=== PATIENT | female | born 1955 | race Caucasian/White ===

== ENCOUNTER → 2016-12-18 | Outpatient (CLI) | payer OTHER ==
--- NOTE | 2016-12-18 13:01 | MM ---
Reason for exam: screening (asymptomatic). Last mammogram was performed 3 years ago. History: Patient is postmenopausal. Took hormonal contraceptives for 4 years beginning at age 22. Physical Findings: A clinical breast exam by your physician is recommended on an annual basis and results should be correlated with mammographic findings. MG Screening Mammo w CAD Bilateral CC and MLO view(s) were taken. Prior study comparison: December 14, 2013, bilateral digital screening mammo w/CAD. There are scattered fibroglandular densities. There is no discrete abnormality. ASSESSMENT: Negative, BI-RAD 1 RECOMMENDATION: Routine screening mammogram of both breasts in 1 year.
== END ==
LOC: RADMAMWWP 06:59
PROVIDERS: ATTEND Obstetrics & Gynecology
DX: Z12.31 Encounter for screening mammogram for malignant neoplasm of breast (principal)

== ENCOUNTER → 2018-01-27 | Outpatient (CLI) | payer OTHER ==
--- NOTE | 2018-01-28 07:54 | MM ---
Reason for exam: screening (asymptomatic). Last mammogram was performed 1 year and 1 month ago. History: Patient is postmenopausal. Took hormonal contraceptives for 4 years beginning at age 22. Physical Findings: A clinical breast exam by your physician is recommended on an annual basis and results should be correlated with mammographic findings. MG Screening Mammo w CAD Bilateral CC and MLO view(s) were taken. Prior study comparison: December 18, 2016, bilateral MG screening mammo w CAD. December 14, 2013, bilateral digital screening mammo w/CAD. The breast tissue is heterogeneously dense. This may lower the sensitivity of mammography. There is chronic nodularity in the right breast. No significant changes when compared with prior studies. ASSESSMENT: Benign, BI-RAD 2 RECOMMENDATION: Routine screening mammogram of both breasts in 1 year.
== END | disposition home or self-care (01) ==
LOC: RADMAMWWP 07:15
PROVIDERS: ATTEND Obstetrics & Gynecology
DX: Z12.31 Encounter for screening mammogram for malignant neoplasm of breast (principal)
CPT/HCPCS: 77067

== ENCOUNTER → 2018-01-29 | Outpatient (CLI) | payer OTHER ==
--- NOTE | 2018-01-29 11:19 | BD ---
EXAMINATION TYPE: Axial Bone Density DATE OF EXAM: 01/29/2018 COMPARISON: 2007 CLINICAL HISTORY: Osteoporosis screening Height: 5'4 1/2 Weight: 164 FRAX RISK QUESTIONS: Secondary Osteoporosis: RISK FACTORS HISTORY OF: Postmenopausal woman: MEDICATIONS: Additional Medications: Additional History: EXAM MEASUREMENTS: Bone mineral densitometry was performed using the [employer] System. Bone mineral density as measured about the Lumbar spine is: ----- L1-L4(G/cm2): 1.011 T Score Values are as follows: ----- L2: -1.5 ----- L3: -1.2 ----- L4: -1.7 ----- L1-L4: -1.4 Bone mineral density has: Decreased -5.0% since study of: 04/01/2008 Bone mineral density about the R hip (g/cm2): 0.874 Bone mineral density about the L hip (g/cm2): 0.892 T Score values are as follows: -----R Neck: -1.2 -----L Neck: -1.0 -----R Total: -0.2 -----L Total: -0.3 Bone mineral density has: Decreased -4.3% since study of: 04/01/2008 IMPRESSION: Osteopenia (T Score between -2.5 and -1). There is slightly increased risk of fracture and the patient may be considered for treatment. Re-Screen 2-5 years. NOTE: T-SCORE=SD OF THE YOUNG ADULT MEAN.
== END | disposition home or self-care (01) ==
LOC: RADBDWWP 07:12
PROVIDERS: ATTEND Obstetrics & Gynecology
DX: M85.80 Other specified disorders of bone density and structure, unspecified site (principal)
CPT/HCPCS: 77080

== ENCOUNTER → 2019-11-03 | Outpatient (CLI) | payer MEDICAID ==
--- NOTE | 2019-11-04 07:59 | MM ---
Reason for exam: screening (asymptomatic). Last mammogram was performed 1 year and 9 months ago. History: Patient is postmenopausal and history of other cancer. Took hormonal contraceptives for 4 years beginning at age 22. Physical Findings: A clinical breast exam by your physician is recommended on an annual basis and results should be correlated with mammographic findings. MG Screening Mammo w CAD Bilateral CC and MLO view(s) were taken. Prior study comparison: January 27, 2018, bilateral MG screening mammo w CAD. December 18, 2016, bilateral MG screening mammo w CAD. The breast tissue is heterogeneously dense. This may lower the sensitivity of mammography. No suspicious abnormality. No significant changes when compared with prior studies. ASSESSMENT: Negative, BI-RAD 1 RECOMMENDATION: Routine screening mammogram of both breasts in 1 year.
== END | disposition home or self-care (01) ==
LOC: RADMAMWWP 10:33
PROVIDERS: ATTEND Obstetrics & Gynecology
DX: Z12.31 Encounter for screening mammogram for malignant neoplasm of breast (principal)
CPT/HCPCS: 77067

== ENCOUNTER → 2020-05-12 | Outpatient (CLI) | payer MEDICAID ==
--- NOTE | 2020-05-12 16:19 | XR ---
EXAMINATION TYPE: XR lumbar spine 2 or 3V DATE OF EXAM: 05/12/2020 CLINICAL HISTORY: pain TECHNIQUE: Three views of the lumbar spine are submitted. COMPARISON: None. FINDINGS: There are 5 lumbar type vertebral bodies identified. The lumbar spine shows satisfactory alignment w ithout evidence of acute fracture or dislocation. Vertebral body heights are within normal limits. Mild multilevel degenerative disc space narrowing. The overlying soft tissue appears unremarkable. IMPRESSION: No acute fracture or dislocation is seen in the lumbar spine. ICD 10 NO FRACTURE, INITIAL EVALUATION
== END | disposition home or self-care (01) ==
LOC: RAD 15:41
PROVIDERS: ATTEND Family Medicine
DX: M54.17 Radiculopathy, lumbosacral region (principal)
CPT/HCPCS: 72100

== ENCOUNTER → 2020-06-16 | Outpatient (CLI) | payer MEDICAID ==
--- NOTE | 2020-06-16 10:00 | MR ---
EXAMINATION TYPE: MR lumbar spine wo con DATE OF EXAM: 06/16/2020 COMPARISON: X-ray 05/12/2020 HISTORY: Lumbar radiculopathy TECHNIQUE: T1 and T2 axial and sagittal images of the lumbar spine are submitted. FINDINGS: There is no abnormal signal seen within the visualized spinal cord or paraspinal soft tissu es. There is multilevel disc desiccation. At L1-2 there is no disc herniation or canal stenosis. No foraminal encroachment. At L2-3 there is no disc herniation or canal stenosis. Mild circumferential disc bulging slightly gre ater laterally the right. Mild right-sided foraminal encroachment but no nerve root contact. At L3-4 there is degenerative disc disease with diffuse disc bulging circumferentially. There is mild effacement of thecal sac. Hypertrophic change of the facets and ligamentum flavum are noted. There i s mild bilateral foraminal encroachment without nerve root contact or canal stenosis. At L4-5 there is degenerative disc disease with broad-based central disc bulging mild effacement of t hecal sac. Hypertrophic change of the facets and ligamentum flavum. Borderline to mild central stenos is with mild bilateral foraminal encroachment. At L5-S1 there is no disc herniation or canal stenosis. No foraminal encroachment. There are 2 cysts in the left hemipelvis the largest measuring 1.6 cm. Pelvic ultrasound recommended. IMPRESSION: 1. Multilevel mild degenerative disc disease with disc bulging at levels L2-3, L3-4 and most pronounc ed at L4-5 with mild effacement of thecal sac, borderline canal stenosis and mild bilateral foraminal encroachment. 2. Disc bulging L2-L3 is greater laterally right with resulting in mild foraminal encroachment. A sma ll focal disc protrusion far laterally to the right not excluded correlate for radiculopathy at this level. Postcontrast imaging could be obtained if clinically warranted. 3. Ultrasound pelvis is recommended for pelvic cysts.
== END | disposition home or self-care (01) ==
LOC: RADMRIMAIN 08:52
PROVIDERS: ATTEND Family Medicine
DX: M48.061 Spinal stenosis, lumbar region without neurogenic claudication (principal); M51.16 Intervertebral disc disorders with radiculopathy, lumbar region
CPT/HCPCS: 72148

== ENCOUNTER 2021-06-26 18:14 | Inpatient (IN) | payer MEDICAID ==
[2021-06-26] MEDS: DEXAMETHASONE SOD PHOSPHATE 10 MG/ML 1 ML VIAL IVP SCH ×2 (19:16→21:32)
[2021-06-26] MEDS: ACETAMINOPHEN TAB 325 MG TAB PO PRN (19:16)
[2021-06-26 19:19] LABS: Basophils # (A) 0.1 k/uL (0-0.2); Basophils % (A) 1 %; Eosinophils % (A) 0 %; HGB 13.7 gm/dL (11.4-16.0); Lymphocytes # (A) 0.8 k/uL (1.0-4.8); Lymphocytes % (A) 9 %; MCH 30.3 pg (25.0-35.0); MCHC 35.1 g/dL (31.0-37.0); MCV 86.3 fL (80.0-100.0); Mean Platelet Volume 9.2; Monocytes # (A) 0.2 k/uL (0-1.0); Monocytes % (A) 2 %; Neutrophils # (A) 7.6 k/uL (1.3-7.7); Neutrophils % (A) 85 %; Platelet Count 291 k/uL (150-450); RBC 4.52 m/uL (3.80-5.40); RDW 13.3 % (11.5-15.5); WBC 8.9 k/uL (3.8-10.6)
[2021-06-26] MEDS: ALBUTEROL HFA INHALER INHALATION PRN (19:27)
[2021-06-26] MEDS ORDERED: SODIUM CHLORIDE 0.9% 500 ML 500 ML IV STA (19:33)
[2021-06-26 19:34] LABS: Albumin 3.5 g/dL (3.5-5.0); Calcium 8.1 mg/dL (8.4-10.2); Magnesium 2.4 mg/dL (1.6-2.3); Potassium 3.1 mmol/L (3.5-5.1); Total Bilirubin 0.9 mg/dL (0.2-1.3); Total Protein 6.5 g/dL (6.3-8.2)
[2021-06-26 19:37] LABS: INR 0.9 (<1.2); Partial Thromboplastin Time 26.1 sec (22.0-30.0); Prothrombin Time 9.8 sec (9.0-12.0)
--- NOTE | 2021-06-26 19:40 | XR ---
EXAMINATION TYPE: XR chest 1V portable DATE OF EXAM: 06/26/2021 COMPARISON: 08/16/2010 HISTORY: Short of breath. Cough TECHNIQUE: FINDINGS: There is patchy bilateral pulmonary interstitial and airspace infiltrates. Heart size is no rmal. There is no pleural effusion. IMPRESSION: Bilateral extensive pneumonia which is new compared to old exam.
[2021-06-26] MEDS ORDERED: POTASSIUM CHLORIDE ER 20 MEQ TAB.ER PO STA (21:04)
[2021-06-26] MEDS ORDERED: NALOXONE 0.4 MG/ML 1 ML VIAL IV PRN (21:16)
[2021-06-26] MEDS ORDERED: REMDESIVIR 200 MG in SODIUM CHLORIDE 0.9% 250 ML IVPB ONE (21:30)
--- NOTE | 2021-06-26 21:54 | ED ---
General Adult HPI - General Chief complaint: Shortness of Breath Stated complaint: Covid+ Time Seen by Provider: 06/26/21 18:43 Source: patient, RN notes reviewed, old records reviewed Mode of arrival: ambulatory Limitations: no limitations - History of Present Illness Initial comments: Patient is a 65-year-old female with past medical history that is unremarkable presents emergency Department with chief complaint of COVID-19 infection and worsening symptoms. Patient states that she began having symptoms on 06/20/2021 and tested positive for Covid on 06/21/2021. She states that over the last few days she is not a worsening shortness of breath which is why she presents emergency department for evaluation. She nurses a cough with no production. Denies any abdominal pain, nausea, vomiting. Endorses joint pain, fatigue. Endorses fevers. Denies any urinary complaints or diarrhea. She has no other acute complaints at this time. She was not vaccinated for COVID-19. I evaluated the patient when she was placed in a room. Patient was saturating 64% on room air in the waiting room. - Related Data Home Medications Medication Instructions Recorded Confirmed No Known Home Medications 06/26/21 06/26/21 Allergies Allergy/AdvReac Type Severity Reaction Status Date / Time No Known Allergies Allergy Verified 06/26/21 19:34 Review of Systems ROS Statement: Those systems with pertinent positive or pertinent negative responses have been documented in the HPI. Review of Systems: CONST: Endorses fever, fatigue EYES: Denies blurry vision ENT: Denies nasal congestion C/V: Denies Chest pain RESP: Endorses shortness of breath GI: Denies abdominal pain : Denies dysuria SKIN: Denies rash. MSK: Denies joint pain. NEURO: Denies headache ROS Other: All systems not noted in ROS Statement are negative. Past Medical History History of Any Multi-Drug Resistant Organisms: None Reported Past Surgical History: Hysterectomy Smoking Status: Never smoker Past Alcohol Use History: None Reported Past Drug Use History: None Reported General Exam - General Exam Comments Initial Comments: General: Patient tachypneic, dyspneic appears in mild respiratory distress on 6 L nasal cannula. She is febrile. HEAD: Normal with no signs of head trauma. EYES: PERRLA, EOMI, conjunctiva normal, no discharge. ENT: Hearing grossly intact, normal oropharynx. RESPIRATORY: Coarse breath sounds bilaterally with increased work of breathing. Patient is hypoxic on room air, and is saturating in low 90%'s on 6 L nasal cannula. C/V: Regular rate and rhythm. S1 and S2 auscultated, no edema, peripheral pulses 2+ and intact throughout ABD: Abd is soft, nontender, nondistended EXT: Normal range of motion, no obvious deformity SKIN: No rashes or lesions observed on exposed skin. NEURO: Alert and oriented x 4. Cranial nerves II-XII intact. No focal sensory or strength deficits. Limitations: no limitations Course Vital Signs 06/26/21 06/26/21 06/26/21 18:29 18:44 19:00 Temperature 101.4 F H Pulse Rate 89 83 Respiratory 24 22 Rate Blood Pressure 120/80 147/74 O2 Sat by Pulse 76 L 64 L 94 L Oximetry 06/26/21 06/26/21 06/26/21 20:00 20:39 21:00 Temperature 99.8 F H Pulse Rate 83 79 Respiratory 27 H 26 H Rate Blood Pressure 147/74 116/71 O2 Sat by Pulse 85 L 93 L 92 L Oximetry Medical Decision Making - Medical Decision Making Based on the patient's presentation and physical exam, she is a confirmed Covid positive and is suffering worsening symptoms from a COVID-19 pneumonia. She is hypoxic on room [place] is suffering acute hypoxic respiratory failure requiring supplemental oxygenation. She seems to be saturating adequately with 6 L nasal cannula at this time. I discussed with her she will require admission to the hospital. We will obtain COVID-19 laboratory studies. Patient was in agreement this plan. EKG and chest x-ray will also be obtained. She'll be a dministered Tylenol for antipyretic therapy as well as a single 500 mL fluid bolus due to acute mild dehydration. She'll also be administered albuterol inhaler as well as started on Decadron 6 mg IV twice a day. She'll be connected to continuous cardiac she is in the department. Patient's EKG shows no signs of acute ischemia. Patient's chest x-ray revealed bilateral extensive pneumonia likely secondary to her COVID-19 pneumonia. Laboratory studies are remarkable for signs of dehydration including hyponatremia of 133, an AK I with a creatinine of 1.43 and V1 at 30 and mild lactic acidosis of 2.2. D-dimer is mildly elevated to 1.35, which is likely secondary as an inflammatory markers secondary to her COVID-19 infection. She is not tachycardiac. However due to her extreme degree of hypoxia, we will start the patient on weight-based Lovenox treatment is 72 mg every 12 hours. A VQ scan was ordered for tomorrow. Her kidney function is poor with a low GFR and therefore we will avoid contrast studies at this time. Patient is elevated inflammatory markers including an elevated LVH as well as CRP. Troponin is indeterminate at 0.017. Repeat Covid swab is positive. She is mildly hypocalcemic at 8.1. On reevaluation, her oxygenation is somewhat declined on 6 L nasal cannula and she was moved to a nonrebreather momentarily will be arranged for high flow nasal cannula for the patient. She is saturating improved on high flow nasal cannula back into the 90%'s. I informed her the results of laboratory studies and imaging. She'll be admitted to the hospital. I did call pharmacy to initiate the first dose of remdesivir, as the patient does meet criteria. She was in agreement this plan. I spoke with the admitting physician, Dr. Miller was in agreement with the plan and accepted the patient. I consulted infectious disease Dr. Monroy and pulmonology Dr. Maldonado to evaluate the patient the morning. Patient was therefore admitted to a telemetry bed in serious condition. - Lab Data Result diagrams: 06/26/21 19:06 06/26/21 19:06 Lab Results 06/26/21 06/26/21 06/26/21 Range/Units 19:06 19:06 19:06 WBC 8.9 (3.8-10.6) k/uL RBC 4.52 (3.80-5.40) m/uL Hgb 13.7 (11.4-16.0) gm/dL Hct 39.0 (34.0-46.0) % MCV 86.3 (80.0-100.0) fL MCH 30.3 (25.0-35.0) pg MCHC 35.1 (31.0-37.0) g/dL RDW 13.3 (11.5-15.5) % Plt Count 291 (150-450) k/uL MPV 9.2 Neutrophils % 85 % Lymphocytes % 9 % Monocytes % 2 % Eosinophils % 0 % Basophils % 1 % Neutrophils # 7.6 (1.3-7.7) k/uL Lymphocytes # 0.8 L (1.0-4.8) k/uL Monocytes # 0.2 (0-1.0) k/uL Eosinophils # 0.0 (0-0.7) k/uL Basophils # 0.1 (0-0.2) k/uL PT 9.8 (9.0-12.0) sec INR 0.9 (<1.2) APTT 26.1 (22.0-30.0) sec D-Dimer (<0.60) mg/L FEU Sodium 133 L (137-145) mmol/L Potassium 3.1 L (3.5-5.1) mmol/L Chloride 98 (98-107) mmol/L Carbon Dioxide 24 (22-30) mmol/L Anion Gap 11 mmol/L BUN 30 H (7-17) mg/dL Creatinine 1.43 H (0.52-1.04) mg/dL Est GFR (CKD-EPI)AfAm 45 (>60 ml/min/1.73 sqM) Est GFR (CKD-EPI)NonAf 39 (>60 ml/min/1.73 sqM) Glucose 138 H (74-99) mg/dL Lactic Ac Sepsis Rflx Plasma Lactic Acid Wayne (0.7-2.0) mmol/L Calcium 8.1 L (8.4-10.2) mg/dL Magnesium 2.4 H (1.6-2.3) mg/dL Total Bilirubin 0.9 (0.2-1.3) mg/dL AST 133 H (14-36) U/L ALT 65 H (4-34) U/L Alkaline Phosphatase 461 H (38-126) U/L Lactate Dehydrogenase 2311 H (313-618) U/L Troponin I (0.000-0.034) ng/mL C-Reactive Protein 34.0 H (<1.0) mg/dL Total Protein 6.5 (6.3-8.2) g/dL Albumin 3.5 (3.5-5.0) g/dL Coronavirus (PCR) (Not Detectd) 06/26/21 06/26/21 06/26/21 Range/Units 19:06 19:06 19:06 WBC (3.8-10.6) k/uL RBC (3.80-5.40) m/uL Hgb (11.4-16.0) gm/dL Hct (34.0-46.0) % MCV (80.0-100.0) fL MCH (25.0-35.0) pg MCHC (31.0-37.0) g/dL RDW (11.5-15.5) % Plt Count (150-450) k/uL MPV Neutrophils % % Lymphocytes % % Monocytes % % Eosinophils % % Basophils % % Neutrophils # (1.3-7.7) k/uL Lymphocytes # (1.0-4.8) k/uL Monocytes # (0-1.0) k/uL Eosinophils # (0-0.7) k/uL Basophils # (0-0.2) k/uL PT (9.0-12.0) sec INR (<1.2) APTT (22.0-30.0) sec D-Dimer (<0.60) mg/L FEU Sodium (137-145) mmol/L Potassium (3.5-5.1) mmol/L Chloride (98-107) mmol/L Carbon Dioxide (22-30) mmol/L Anion Gap mmol/L BUN (7-17) mg/dL Creatinine (0.52-1.04) mg/dL Est GFR (CKD-EPI)AfAm (>60 ml/min/1.73 sqM) Est GFR (CKD-EPI)NonAf (>60 ml/min/1.73 sqM) Glucose (74-99) mg/dL Lactic Ac Sepsis Rflx Plasma Lactic Acid Wayne 2.2 H* (0.7-2.0) mmol/L Calcium (8.4-10.2) mg/dL Magnesium (1.6-2.3) mg/dL Total Bilirubin (0.2-1.3) mg/dL AST (14-36) U/L ALT (4-34) U/L Alkaline Phosphatase (38-126) U/L Lactate Dehydrogenase (313-618) U/L Troponin I 0.017 (0.000-0.034) ng/mL C-Reactive Protein (<1.0) mg/dL Total Protein (6.3-8.2) g/dL Albumin (3.5-5.0) g/dL Coronavirus (PCR) Detected A (Not Detectd) 06/26/21 06/26/21 Range/Units 19:06 19:31 WBC (3.8-10.6) k/uL RBC (3.80-5.40) m/uL Hgb (11.4-16.0) gm/dL Hct (34.0-46.0) % MCV (80.0-100.0) fL MCH (25.0-35.0) pg MCHC (31.0-37.0) g/dL RDW (11.5-15.5) % Plt Count (150-450) k/uL MPV Neutrophils % % Lymphocytes % % Monocytes % % Eosinophils % % Basophils % % Neutrophils # (1.3-7.7) k/uL Lymphocytes # (1.0-4.8) k/uL Monocytes # (0-1.0) k/uL Eosinophils # (0-0.7) k/uL Basophils # (0-0.2) k/uL PT (9.0-12.0) sec INR (<1.2) APTT (22.0-30.0) sec D-Dimer 1.35 H (<0.60) mg/L FEU Sodium (137-145) mmol/L Potassium (3.5-5.1) mmol/L Chloride (98-107) mmol/L Carbon Dioxide (22-30) mmol/L Anion Gap mmol/L BUN (7-17) mg/dL Creatinine (0.52-1.04) mg/dL Est GFR (CKD-EPI)AfAm (>60 ml/min/1.73 sqM) Est GFR (CKD-EPI)NonAf (>60 ml/min/1.73 sqM) Glucose (74-99) mg/dL Lactic Ac Sepsis Rflx Y Plasma Lactic Acid Wayne (0.7-2.0) mmol/L Calcium (8.4-10.2) mg/dL Magnesium (1.6-2.3) mg/dL Total Bilirubin (0.2-1.3) mg/dL AST (14-36) U/L ALT (4-34) U/L Alkaline Phosphatase (38-126) U/L Lactate Dehydrogenase (313-618) U/L Troponin I (0.000-0.034) ng/mL C-Reactive Protein (<1.0) mg/dL Total Protein (6.3-8.2) g/dL Albumin (3.5-5.0) g/dL Coronavirus (PCR) (Not Detectd) - EKG Data -: EKG Interpreted by Me EKG Comments: 12-lead Electrocardiogram Interpretation Note EKG was reviewed and interpreted by myself. 12-lead ECG performed at 1844 is interpreted by me as revealing normal sinus rhythm at a rate of 87 beats per minute. [place] is normal. DE interval is 140 ms, QRS duration 78 ms, QTc is 435 ms.. There were no ST or T wave abnormalities to suggest myocardial ischemia or injury. R wave progression across the precordium was satisfactory. By my interpretation this EKG is non-diagnostic for acute ischemia. Critical Care Time Critical Care Time: Yes Total Critical Care Time: 35 Critical Care Time: Upon my evaluation, this patient had a high probability of imminent or life- threatening deterioration due to Covid 19 pneumonia, hypoxic respiratory failure, which required my direct attention, intervention, and personal management. I have personally provided 35 minutes of critical care time exclusive of time spent on separately billable procedures. Time includes review of laboratory data, radiology results, discussion with consultants, and monitoring for potential decompensation. Interventions were performed as documented in my note. Disposition Clinical Impression: Pneumonia due to COVID-19 virus, Febrile illness, Acute respiratory failure with hypoxia, Elevated d-dimer, Lactic acidosis, ANI (acute kidney injury), Hyp okalemia Disposition: ADMITTED IP TO THIS HOSP Condition: Serious
[2021-06-26] MEDS ORDERED: ENOXAPARIN 80 MG/0.8 ML SYRINGE SQ SCH (22:00)
[2021-06-27 05:25] LABS: Basophils % (A) 0 %; Eosinophils % (A) 0 %; HCT 38.4 % (34.0-46.0); HGB 12.6 gm/dL (11.4-16.0); Lymphocytes # (A) 1.2 k/uL (1.0-4.8); Lymphocytes % (A) 13 %; MCHC 32.7 g/dL (31.0-37.0); MCV 88.6 fL (80.0-100.0); Mean Platelet Volume 9.1; Monocytes # (A) 0.2 k/uL (0-1.0); Monocytes % (A) 2 %; Neutrophils # (A) 7.9 k/uL (1.3-7.7); Neutrophils % (A) 82 %; Platelet Count 274 k/uL (150-450); RBC 4.34 m/uL (3.80-5.40); RDW 12.8 % (11.5-15.5); WBC 9.6 k/uL (3.8-10.6)
[2021-06-27 05:40] LABS: Calcium 8.1 mg/dL (8.4-10.2); Potassium 3.8 mmol/L (3.5-5.1)
[2021-06-27] MEDS: DEXAMETHASONE SOD PHOSPHATE 10 MG/ML 1 ML VIAL IVP SCH ×2 (08:34→20:15)
--- NOTE | 2021-06-27 08:35 | NM ---
EXAMINATION TYPE: NM pul perfusion DATE OF EXAM: 06/27/2021 COMPARISON: NONE HISTORY: Evaluate for PE. Elevated d-dimer Following administration of 5.3 mCi Tc 99m MAA. Images obtained post injection. FINDINGS: There is homogeneous distribution radiotracer throughout both lung small. IMPRESSION: Very low probability of pulmonary embolism.
[2021-06-27] MEDS ORDERED: ENOXAPARIN 40 MG/0.4 ML SYRINGE SQ SCH (09:00)
[2021-06-27 10:34] LABS: Glucose,Whole Blood 189 mg/dL (75-99)
[2021-06-27 10:44] LABS: C Reactive Protein 31.9 mg/dL (<1.0)
[2021-06-27] MEDS: ASCORBIC ACID 500 MG TAB PO SCH (11:20)
[2021-06-27] MEDS: ZINC SULFATE 220 MG CAP PO SCH (11:20)
[2021-06-27] MEDS: PANTOPRAZOLE 40 MG/10 ML VIAL IVP SCH (11:20)
[2021-06-27] MEDS: BARICITINIB 2 MG TABLET PO SCH (11:20)
[2021-06-27] MEDS: SODIUM CHLORIDE 0.9% 1,000 ML IV SCH (11:21)
[2021-06-27 11:45] LABS: Glucose,Whole Blood 177 mg/dL (75-99)
--- NOTE | 2021-06-27 13:14 | P.CNPUL ---
History of Present Illness Consult date: 06/27/21 Requesting physician: Orlando Miller Reason for consult: dyspnea, hypoxemia, abnormal CXR/CT Chief complaint: Shortness of breath History of present illness: This is a very pleasant 65-year-old female patient who follows with Dr. Miller as her primary care provider. She has no significant past medical history. Lifelong nonsmoker. One week 06/20/2021 ago she was traveling in [facility] and developed symptoms of fever, fatigue, joint pain, sore throat. She returned back to [place] on 06/21/2021 she tested positive for COVID-19 infection. Her was positive as well. He did receive monoclonal antibodies and is recovering at home. She is unvaccinated. She was quite hypoxemic on arrival with saturation of 64% on room air while in the waiting room. Her chest x-ray shows extensive bilateral patchy infiltrates and airspace disease. VQ scan revealed very low probability of PE. White count 9.6. Hemoglobin 12.6. Platelets 274. D-dimer 0.99. Sodium 135. Potassium 3.8. Creatinine 0.87. Glucose 169. LDH 2239. C-reactive protein 31.9. She is seen today in consultation in the emergency room. She is currently sitting up on a stretcher. Awake and alert. Moderate respiratory distress. Continue O2 saturations 88-90% on 15 L high flow nasal cannula. T-max of 101.4. Currently 99.8. She was given Lovenox and Decadron. She also received Remdesivir yesterday. 1 L of fluid resuscitation. Currently on 0.9 normal saline at 50 MLS per hour. Review of Systems REVIEW OF SYSTEMS: CONSTITUTIONAL: Denies any recent significant weight loss or weight gain. EYES: Denies change in vision. EARS, NOSE, MOUTH, THROAT: Positive for sore throat. CARDIOVASCULAR: Denies chest pain, palpitations or syncopal episodes. RESPIRATORY: Positive for shortness of breath, cough, congestion no hemoptysis. GASTROINTESTINAL: Denies change in appetite, denies abdominal pain GENITOURINARY: Denies hematuria, denies infections. MUSKULOSKELETAL: Positive for muscle and joint pain. INTEGUMENTARY: Denies rash, denies eczema. NEUROLOGICAL: Denies recent memory loss, no recent seizure activity. PSYCHIATRIC: Denies anxiety, denies depression. HEMATOLOGIC/LYMPHATIC: Denies anemia, denies enlarged lymph nodes. Past Medical History History of Any Multi-Drug Resistant Organisms: None Reported Past Surgical History: Hysterectomy Smoking Status: Never smoker Past Alcohol Use History: None Reported Past Drug Use History: None Reported Medications and Allergies Home Medications Medication Instructions Recorded Confirmed Type No Known Home Medications 06/26/21 06/26/21 History Allergies Allergy/AdvReac Type Severity Reaction Status Date / Time No Known Allergies Allergy Verified 06/26/21 19:34 Physical Exam Vitals: Vital Signs Temp Pulse Resp BP Pulse Ox 06/27/21 11:00 65 21 116/70 88 L 06/27/21 10:32 71 20 124/75 88 L 06/27/21 05:00 70 18 116/75 88 L 06/26/21 22:00 80 25 H 117/71 89 L 06/26/21 21:00 79 26 H 116/71 92 L 06/26/21 20:39 99.8 F H 93 L 06/26/21 20:00 83 27 H 147/74 85 L 06/26/21 19:00 83 22 147/74 94 L 06/26/21 18:44 64 L 06/26/21 18:29 101.4 F H 89 24 120/80 76 L Intake and Output 06/26/21 06/27/21 06/27/21 22:59 06:59 14:59 Intake Total 150 Balance 150 Intake: Intake, IV Titration 50 Amount Sodium Chloride 0.9% 1, 50 000 ml @ 50 mls/hr IV . Q20H [facility] Rx#:[id number] Oral 100 Other: Weight 71.668 kg GENERAL EXAM: Alert, very pleasant 65-year-old female patient, on 15 L high flow nasal cannula, in moderate respiratory distress. HEAD: Normocephalic. EYES: Normal reaction of pupils, equal size. NOSE: Clear with pink turbinates. THROAT: No erythema or exudates. NECK: No masses, no JVD. CHEST: No chest wall deformity. LUNGS: Equal air entry with bilateral scattered rhonchi, crackles in the posterior bases. CVS: S1 and S2 normal with no audible murmur, regular rhythm. ABDOMEN: No hepatosplenomegaly, normal bowel sounds, no guarding or rigidity. SPINE: No scoliosis or deformity SKIN: No rashes CENTRAL NERVOUS SYSTEM: No focal deficits, tone is normal in all 4 extremities. EXTREMITIES: There is no peripheral edema. No clubbing, no cyanosis. Peripheral pulses are intact. Results - Laboratory Findings CBC and BMP: 06/27/21 04:57 06/27/21 04:57 PT/INR, D-dimer PT 9.8 sec (9.0-12.0) 06/26/21 19:06 INR 0.9 (<1.2) 06/26/21 19:06 D-Dimer 0.99 mg/L FEU (<0.60) H 06/27/21 05:00 Abnormal lab findings: Abnormal Labs 06/26/21 06/26/21 06/26/21 19:06 19:06 19:06 Neutrophils # Lymphocytes # 0.8 L D-Dimer Sodium 133 L Potassium 3.1 L BUN 30 H Creatinine 1.43 H Glucose 138 H POC Glucose (mg/dL) Plasma Lactic Acid Wayne 2.2 H* Calcium 8.1 L Magnesium 2.4 H Ferritin 2575.0 H AST 133 H ALT 65 H Alkaline Phosphatase 461 H Lactate Dehydrogenase 2311 H C-Reactive Protein 34.0 H Coronavirus (PCR) 06/26/21 06/26/21 06/27/21 19:06 19:06 04:57 Neutrophils # 7.9 H Lymphocytes # D-Dimer 1.35 H Sodium Potassium BUN Creatinine Glucose POC Glucose (mg/dL) Plasma Lactic Acid Wayne Calcium Magnesium Ferritin AST ALT Alkaline Phosphatase Lactate Dehydrogenase C-Reactive Protein Coronavirus (PCR) Detected A 06/27/21 06/27/21 06/27/21 04:57 05:00 05:00 Neutrophils # Lymphocytes # D-Dimer 0.99 H Sodium 135 L Potassium BUN 27 H Creatinine Glucose 169 H POC Glucose (mg/dL) Plasma Lactic Acid Wayne Calcium 8.1 L Magnesium Ferritin AST ALT Alkaline Phosphatase Lactate Dehydrogenase 2239 H C-Reactive Protein 31.9 H Coronavirus (PCR) 06/27/21 06/27/21 10:33 11:44 Neutrophils # Lymphocytes # D-Dimer Sodium Potassium BUN Creatinine Glucose POC Glucose (mg/dL) 189 H 177 H Plasma Lactic Acid Wayne Calcium Magnesium Ferritin AST ALT Alkaline Phosphatase Lactate Dehydrogenase C-Reactive Protein Coronavirus (PCR) - Diagnostic Findings Chest x-ray: image reviewed Assessment and Plan Assessment: 1 Acute hypoxemic respiratory failure secondary to acute COVID-19 pneumonia. Unvaccinated. Symptoms started 1 week ago. Received 1 dose of Remdesivir . Now qualifying for Baricitinib, initiated today. VQ scan reveals a very low probability of pulmonary emboli. 2 Elevated inflammatory markers secondary to above Plan: The patient was seen and evaluated by Dr. Maldonado Chest x-ray and labs reviewed Change admission from the regular floor to the ICU Initiate Baricitinib, Lovenox, Decadron, vitamin supplements Continue normal saline at 50 MLS per hour Change from high flow oxygen to the AirVo 60 L and 90% FiO2 Titrate the FiO2 as tolerated Prognosis is guarded We will continue to follow and make further recommendations based on her cl inical status I, the cosigning physician, performed a history & physical examination of the patient. Lungs sounds scattered rhonchi, crackles in the posterior bases. Maintaining O2 saturations in the 90s on AirVo high flow oxygen at 60 L and 90%. I discussed the assessment and plan of care with my nurse practitioner, Shirley Stauffer. I attest to the above consultation as dictated by her. Time with Patient: Greater than 30
[2021-06-27] MEDS: INSULIN ASPART (NovoLOG) 100 UNIT/ML VIAL SQ SCH ×3 (13:47→20:15)
--- NOTE | 2021-06-27 14:12 | P.HPIM ---
History of Present Illness H&P Date: 06/27/21 Chief Complaint: Worsening shortness of breath This is a pleasant 65-year-old female with no significant past medical history, nonsmoker, and unvaccinated for COVID. Reports symptoms of fatigue and sore throat and fever, generalized joint pain started a week ago after traveling to [place], [place]. Upon returning home both she and her tested positive for COVID-19 on 06/21/21. Both presented to the ER with complaints of worsening hypoxia. Her received monoclonal antibodies and discharged home. On admission patient's O2 sat on room air 64%, temperature 101.4, respiratory rate 24, blood pressure/heart rate stable. Normal WBC, hemoglobin 12.6, platelets 274, d-dimer 1.35 now down to 0.99, ferritin 2575, LDH 2311, down to 2239 , CRP 34 -currently 31.9, coronavirus detected, sodium 135. Potassium 3.1, received supplementation currently up to 3.8, BUN 30, creatinine 1.43 currently 27, 0.87, blood sugars stable, T bili 0.9, AST 133, ALT 65, alk phos 461 Chest x-ray reported new bilateral extensive pneumonia. EKG is normal sinus rhythm. VQ scan reporting very low probability of PE. Received a dose of Remdesevir in the ER, now on Baricitinib. Review of Systems Constitutional: Reports fever, fatigue, minimal weight loss Cardio vascular: denied any chest pain, palpitations Gastrointestinal denied any nausea ,vomiting. Reports positive diarrhea Pulmonary: Reports worsening shortness of breath, cough, congestion. Neurologic denied any new focal deficits ROS Statement: Those systems with pertinent positive or pertinent negative responses have been documented in the HPI. ROS Other: All systems not noted in ROS Statement are negative. Past Medical History History of Any Multi-Drug Resistant Organisms: None Reported Past Surgical History: Hysterectomy Smoking Status: Never smoker Past Alcohol Use History: None Reported Past Drug Use History: None Reported Medications and Allergies Home Medications Medication Instructions Recorded Confirmed Type No Known Home Medications 06/26/21 06/26/21 History Allergies Allergy/AdvReac Type Severity Reaction Status Date / Time No Known Allergies Allergy Verified 06/26/21 19:34 Physical Exam Vitals: Vital Signs Temp Pulse Resp BP Pulse Ox 06/27/21 11:00 65 21 116/70 88 L 06/27/21 10:32 71 20 124/75 88 L 06/27/21 05:00 70 18 116/75 88 L 06/26/21 22:00 80 25 H 117/71 89 L 06/26/21 21:00 79 26 H 116/71 92 L 06/26/21 20:39 99.8 F H 93 L 06/26/21 20:00 83 27 H 147/74 85 L 06/26/21 19:00 83 22 147/74 94 L 06/26/21 18:44 64 L 06/26/21 18:29 101.4 F H 89 24 120/80 76 L Intake and Output 06/26/21 06/27/21 06/27/21 22:59 06:59 14:59 Intake Total 0 Balance 0 Intake: Oral 0 Other: Weight 71.668 kg PHYSICAL EXAM: VITAL SIGNS: [As above] GENERAL: Sitting up on stretcher, respiratory effort increased, currently wearing 15 L high flow nasal cannula. HEENT: Conjunctivae normal. eyes normal. NECK: No JVD. No thyroid enlargement. No LNs CARDIOVASCULAR: S1, S2 regular.. No murmur RESPIRATION: Breath sounds diminished in the bases. Scattered rhonchi with bibasilar crackles. ABDOMEN: Soft, nontender . No guarding. no masses palpable. No ascites, No hepatosplenomegaly.Bowel sounds heard. LEGS: No edema. no swelling PSYCHIATRY: Alert and oriented X3, mood and affect normal. NERVOUS SYSTEM: Cranial N 2-12 grossly normal. Moves all 4 limbs. Diffuse weakness, No focal deficits. Strength and sensation grossly intact.. Skin: Warm and dry, no rash Results CBC & Chem 7: 06/27/21 04:57 06/27/21 04:57 Labs: Abnormal Lab Results - Last 24 Hours (Table) 06/26/21 06/26/21 06/26/21 Range/Units 19:06 19:06 19:06 Neutrophils # (1.3-7.7) k/uL Lymphocytes # 0.8 L (1.0-4.8) k/uL D-Dimer (<0.60) mg/L FEU Sodium 133 L (137-145) mmol/L Potassium 3.1 L (3.5-5.1) mmol/L BUN 30 H (7-17) mg/dL Creatinine 1.43 H (0.52-1.04) mg/dL Glucose 138 H (74-99) mg/dL POC Glucose (mg/dL) (75-99) mg/dL Plasma Lactic Acid Wayne 2.2 H* (0.7-2.0) mmol/L Calcium 8.1 L (8.4-10.2) mg/dL Magnesium 2.4 H (1.6-2.3) mg/dL Ferritin 2575.0 H (10.0-291.0) ng/mL AST 133 H (14-36) U/L ALT 65 H (4-34) U/L Alkaline Phosphatase 461 H (38-126) U/L Lactate Dehydrogenase 2311 H (313-618) U/L C-Reactive Protein 34.0 H (<1.0) mg/dL Coronavirus (PCR) (Not Detectd) 06/26/21 06/26/21 06/27/21 Range/Units 19:06 19:06 04:57 Neutrophils # 7.9 H (1.3-7.7) k/uL Lymphocytes # (1.0-4.8) k/uL D-Dimer 1.35 H (<0.60) mg/L FEU Sodium (137-145) mmol/L Potassium (3.5-5.1) mmol/L BUN (7-17) mg/dL Creatinine (0.52-1.04) mg/dL Glucose (74-99) mg/dL POC Glucose (mg/dL) (75-99) mg/dL Plasma Lactic Acid Wayne (0.7-2.0) mmol/L Calcium (8.4-10.2) mg/dL Magnesium (1.6-2.3) mg/dL Ferritin (10.0-291.0) ng/mL AST (14-36) U/L ALT (4-34) U/L Alkaline Phosphatase (38-126) U/L Lactate Dehydrogenase (313-618) U/L C-Reactive Protein (<1.0) mg/dL Coronavirus (PCR) Detected A (Not Detectd) 06/27/21 06/27/21 06/27/21 Range/Units 04:57 05:00 05:00 Neutrophils # (1.3-7.7) k/uL Lymphocytes # (1.0-4.8) k/uL D-Dimer 0.99 H (<0.60) mg/L FEU Sodium 135 L (137-145) mmol/L Potassium (3.5-5.1) mmol/L BUN 27 H (7-17) mg/dL Creatinine (0.52-1.04) mg/dL Glucose 169 H (74-99) mg/dL POC Glucose (mg/dL) (75-99) mg/dL Plasma Lactic Acid Wayne (0.7-2.0) mmol/L Calcium 8.1 L (8.4-10.2) mg/dL Magnesium (1.6-2.3) mg/dL Ferritin (10.0-291.0) ng/mL AST (14-36) U/L ALT (4-34) U/L Alkaline Phosphatase (38-126) U/L Lactate Dehydrogenase 2239 H (313-618) U/L C-Reactive Protein 31.9 H (<1.0) mg/dL Coronavirus (PCR) (Not Detectd) 06/27/21 Range/Units 10:33 Neutrophils # (1.3-7.7) k/uL Lymphocytes # (1.0-4.8) k/uL D-Dimer (<0.60) mg/L FEU Sodium (137-145) mmol/L Potassium (3.5-5.1) mmol/L BUN (7-17) mg/dL Creatinine (0.52-1.04) mg/dL Glucose (74-99) mg/dL POC Glucose (mg/dL) 189 H (75-99) mg/dL Plasma Lactic Acid Wayne (0.7-2.0) mmol/L Calcium (8.4-10.2) mg/dL Magnesium (1.6-2.3) mg/dL Ferritin (10.0-291.0) ng/mL AST (14-36) U/L ALT (4-34) U/L Alkaline Phosphatase (38-126) U/L Lactate Dehydrogenase (313-618) U/L C-Reactive Protein (<1.0) mg/dL Coronavirus (PCR) (Not Detectd) Assessment and Plan Assessment: Acute COVID-19 pneumonia, bilateral, symptoms 1 week Severe sepsis with organ dysfunction secondary to the above Acute hypoxic respiratory failure secondary to all the above Acute renal failure, improving with IV fluid hydration Elevated LFTs Elevated inflammatory markers secondary to covid Mild hyponatremia, improving Plan: Continue on current medication regime ,monitoring and symptomatic treatment. Maintain gentle IV fluid hydration, Lovenox for DVT prophylaxis, Protonix for GI prophylaxis, vitamin C, vitamin D, zinc and Baricitinib. Patient will be admitted to the ICU. Follow with pulmonary and infectious disease closely. The impression and plan of care has been dictated as directed. : I performed a history and examination of this patient, discussed the same with the dictator. I agree with the dictator's note ,documented as a scribe. Any additional findings or plans will be noted.
[2021-06-27] MEDS: ACETAMINOPHEN TAB 325 MG TAB PO PRN (14:32)
[2021-06-27 16:35] LABS: Glucose,Whole Blood 180 mg/dL (75-99)
[2021-06-27 20:13] LABS: Glucose,Whole Blood 166 mg/dL (75-99)
[2021-06-27] MEDS: ENOXAPARIN 40 MG/0.4 ML SYRINGE SQ SCH (20:15)
[2021-06-28 06:06] LABS: Basophils % (A) 0 %; Eosinophils % (A) 0 %; HGB 11.3 gm/dL (11.4-16.0); Lymphocytes # (A) 2.3 k/uL (1.0-4.8); Lymphocytes % (A) 20 %; MCH 29.7 pg (25.0-35.0); MCHC 33.2 g/dL (31.0-37.0); MCV 89.5 fL (80.0-100.0); Mean Platelet Volume 9.2; Monocytes # (A) 0.5 k/uL (0-1.0); Monocytes % (A) 4 %; Neutrophils # (A) 8.4 k/uL (1.3-7.7); Neutrophils % (A) 72 %; Platelet Count 333 k/uL (150-450); WBC 11.7 k/uL (3.8-10.6)
[2021-06-28] MEDS: SODIUM CHLORIDE 0.9% 1,000 ML IV SCH (06:25)
[2021-06-28 06:26] LABS: African American GFR (CKD) >90 (>60 ml/min/1.73 sqM); Anion Gap 6 mmol/L; Blood Urea Nitrogen 37 mg/dL (7-17); Calcium 7.7 mg/dL (8.4-10.2); Carbon Dioxide 24 mmol/L (22-30); Chloride 103 mmol/L (98-107); Glucose 151 mg/dL (74-99); Non-African American GFR(CKD) >90 (>60 ml/min/1.73 sqM); Potassium 3.8 mmol/L (3.5-5.1); Sodium 133 mmol/L (137-145)
[2021-06-28 06:41] LABS: Glucose,Whole Blood 160 mg/dL (75-99)
[2021-06-28] MEDS: INSULIN ASPART (NovoLOG) 100 UNIT/ML VIAL SQ SCH ×4 (06:42→20:24)
[2021-06-28 06:44] LABS: C Reactive Protein 13.9 mg/dL (<1.0); LDH 2006 U/L (313-618)
--- NOTE | 2021-06-28 06:45 | XR ---
EXAMINATION TYPE: XR chest 1V portable DATE OF EXAM: 06/28/2021 CLINICAL HISTORY: Difficulty breathing and covid progress study. TECHNIQUE: Single AP portable upright view of the chest is obtained. COMPARISON: Chest x-ray from 2 days earlier FINDINGS: Bilateral multifocal and confluent opacities with relative sparing of lung apices in later al right lung base are redemonstrated. Cardiac silhouette size is stable and upper limits of normal. Osseous structures are intact. Overlying EKG leads redemonstrated. IMPRESSION: Bilateral multifocal and confluent opacities consistent with covid-19 infection are redem onstrated. No significant change from most recent prior.
[2021-06-28] MEDS ORDERED: POTASSIUM CHLORIDE ER 20 MEQ TAB.ER PO SCH (07:00)
[2021-06-28] MEDS: PANTOPRAZOLE 40 MG/10 ML VIAL IVP SCH (08:19)
[2021-06-28] MEDS: DEXAMETHASONE SOD PHOSPHATE 10 MG/ML 1 ML VIAL IVP SCH ×2 (08:20→20:18)
[2021-06-28] MEDS: ASCORBIC ACID 500 MG TAB PO SCH (08:20)
[2021-06-28] MEDS: ZINC SULFATE 220 MG CAP PO SCH (08:20)
[2021-06-28] MEDS: CHOLECALCIFEROL 25 MCG (1000 IU) TABLET PO SCH (08:20)
[2021-06-28] MEDS: BARICITINIB 2 MG TABLET PO SCH (08:21)
[2021-06-28 11:48] LABS: Glucose,Whole Blood 160 mg/dL (75-99)
--- NOTE | 2021-06-28 13:30 | P.PN ---
Subjective Progress Note Date: 06/28/21 Principal diagnosis: Acute hypoxic respiratory failure secondary to COVID-19 pneumonia This is a very pleasant 65-year-old female patient who follows with Dr. Miller as her primary care provider. She has no significant past medical history. Lifelong nonsmoker. One week 06/20/2021 ago she was traveling in [facility] and developed symptoms of fever, fatigue, joint pain, sore throat. She returned back to [place] on 06/21/2021 she tested positive for COVID-19 infecti on. Her was positive as well. He did receive monoclonal antibodies and is recovering at home. She is unvaccinated. She was quite hypoxemic on arrival with saturation of 64% on room air while in the waiting room. Her chest x-ray shows extensive bilateral patchy infiltrates and airspace disease. VQ scan revealed very low probability of PE. White count 9.6. Hemoglobin 12.6. Platelets 274. D-dimer 0.99. Sodium 135. Potassium 3.8. Creatinine 0.87. Glucose 169. LDH 2239. C-reactive protein 31.9. She is seen today in consultation in the emergency room. She is currently sitting up on a stretcher. Awake and alert. Moderate respiratory distress. Continue O2 saturations 88- 90% on 15 L high flow nasal cannula. T-max of 101.4. Currently 99.8. She was given Lovenox and Decadron. She also received Remdesivir yesterday. 1 L of fluid resuscitation. Currently on 0.9 normal saline at 50 MLS per hour. Patient was reevaluated today on 06/28/21, remains in the ICU, patient is on high flow oxygen utilizing airvo at 60 L flow and 70% FiO2. Clinically the patient feels better, O2 saturation remains very marginal, high 80s and low 90s. Chest x-ray is basically the same, continues to show bilateral interstitial infiltrates consistent with COVID-19 pneumonia. WBC count today is 11.7 hemoglobin is 11.3 d-dimer is 1.07 and electrolytes are normal renal profile is normal BUN is 37 creatinine 0.66. LDH is slightly better down to 2006. C- reactive protein is 13.9, improving compared to yesterday from 31.9. Patient remains on the COVID-19 cocktail. She is also on Decadron 6 mg IV push twice a day, and she is also on baricitinib Objective - Vital Signs Vital signs: Vital Signs Temp 98.2 F 06/28/21 08:00 Pulse 66 06/28/21 11:00 Resp 14 06/28/21 11:00 BP 108/65 06/28/21 11:00 Pulse Ox 91 L 06/28/21 11:00 Intake & Output 06/27/21 06/28/21 06/28/21 18:59 06:59 18:59 Intake Total 600 700 400 Output Total 400 600 400 Balance 200 100 0 Weight 81.9 kg 81.5 kg Intake: IV 250 Sodium Chloride 0.9% 1, 250 000 ml @ 50 mls/hr IV . Q20H [facility] Rx#:[id number] Intake, IV Titration 350 600 50 Amount Sodium Chloride 0.9% 1, 350 600 50 000 ml @ 50 mls/hr IV . Q20H [facility] Rx#:[id number] Oral 250 100 100 Output: Urine 600 400 Urine/Stool Mix 400 Other: Voiding Method Bedside Commode - Exam Physical Exam: Revealed 65-year-old female in no distress. On high flow oxygen and high FiO2/airvo Head: Atraumatic, normocephalic. HEENT:[Neck is supple.] [No neck masses.] [No thyromegaly.] [No JVD.] Dry mucous membranes. Chest: Fine crackles at the bases right more so than left. Cardiac Exam: [Normal S1 and S2, no S3 gallop, no murmur.] Abdomen: [Soft, nontender, no megaly, no rebound, no guarding, normal bowel sounds.] Extremities: [No clubbing, no edema, no cyanosis.] Neurological Exam: [No focal neurologic deficit.] Alert oriented 3. Psychiatric: Normal mood affect and normal mental status examination. - Labs CBC & Chem 7: 06/28/21 05:21 06/28/21 05:21 Labs: Abnormal Lab Results - Last 24 Hours (Table) 06/26/21 06/27/21 06/27/21 Range/Units 19:06 16:34 20:11 WBC (3.8-10.6) k/uL Hgb (11.4-16.0) gm/dL Neutrophils # (1.3-7.7) k/uL D-Dimer (<0.60) mg/L FEU Sodium (137-145) mmol/L BUN (7-17) mg/dL Glucose (74-99) mg/dL POC Glucose (mg/dL) 180 H 166 H (75-99) mg/dL Calcium (8.4-10.2) mg/dL Lactate Dehydrogenase (313-618) U/L C-Reactive Protein (<1.0) mg/dL Procalcitonin 0.30 H (0.02-0.09) ng/mL 06/28/21 06/28/21 06/28/21 Range/Units 05:21 05:21 05:21 WBC 11.7 H (3.8-10.6) k/uL Hgb 11.3 L (11.4-16.0) gm/dL Neutrophils # 8.4 H (1.3-7.7) k/uL D-Dimer 1.07 H (<0.60) mg/L FEU Sodium 133 L (137-145) mmol/L BUN 37 H (7-17) mg/dL Glucose 151 H (74-99) mg/dL POC Glucose (mg/dL) (75-99) mg/dL Calcium 7.7 L (8.4-10.2) mg/dL Lactate Dehydrogenase 2006 H (313-618) U/L C-Reactive Protein 13.9 H (<1.0) mg/dL Procalcitonin (0.02-0.09) ng/mL 06/28/21 06/28/21 Range/Units 06:38 11:46 WBC (3.8-10.6) k/uL Hgb (11.4-16.0) gm/dL Neutrophils # (1.3-7.7) k/uL D-Dimer (<0.60) mg/L FEU Sodium (137-145) mmol/L BUN (7-17) mg/dL Glucose (74-99) mg/dL POC Glucose (mg/dL) 160 H 160 H (75-99) mg/dL Calcium (8.4-10.2) mg/dL Lactate Dehydrogenase (313-618) U/L C-Reactive Protein (<1.0) mg/dL Procalcitonin (0.02-0.09) ng/mL Microbiology - Last 24 Hours (Table) 06/26/21 19:00 Blood Culture - Preliminary Blood No Growth after 24 hours 06/26/21 19:06 Blood Culture - Preliminary Blood No Growth after 24 hours Assessment and Plan Assessment: Acute hypoxic respiratory failure secondary to COVID-19 pneumonia, and vaccin ated. Received 1 dose of remdesivir, however considering her FiO2 requirement, patient is now on baricitinib Elevated inflammatory markers secondary to COVID-19 pneumonia Recommendation: Continue to monitor the patient in the ICU Continue high flow oxygen and titrate accordingly Continue COVID-19 cocktail. And that includes Lovenox, Decadron, vitamin supplements, Continue baricitinib Will continue to follow. Prognosis is guarded at this point. Time with Patient: Less than 30
[2021-06-28 16:50] LABS: Glucose,Whole Blood 172 mg/dL (75-99)
--- NOTE | 2021-06-28 17:35 | P.PN ---
Subjective Progress Note Date: 06/28/21 This is a pleasant 65-year-old female with no significant past medical history, nonsmoker, and unvaccinated for COVID. Reports symptoms of fatigue and sore throat and fever, generalized joint pain started a week ago after traveling to [place], [place]. Upon returning home both she and her tested positive for COVID-19 on 06/21/21. Both presented to the ER with complaints of worsening hypoxia. Her received monoclonal antibodies and discharged home. On admission patient's O2 sat on room air 64%, temperature 101.4, respiratory rate 24, blood pressure/heart rate stable. Normal WBC, hemoglobin 12.6, platelets 274, d-dimer 1.35 now down to 0.99, ferritin 2575, LDH 2311, down to 2239 , CRP 34 -currently 31.9, coronavirus detected, sodium 135. Potassium 3.1, received supplementation currently up to 3.8, BUN 30, creatinine 1.43 currently 27, 0.87, blood sugars stable, T bili 0.9, AST 133, ALT 65, alk phos 461 Chest x-ray reported new bilateral extensive pneumonia. EKG is normal sinus rhythm. VQ scan reporting very low probability of PE. Received a dose of Remdesevir in the ER, now on Baricitinib. 06/28/2021 maintained on airflow 60 L flow/70% FiO2, maintaining O2 sats of 89- 93%. States she feels better. Chest x-ray with no significant change,reporting bilateral multifocal and confluent opacity consistent with COVID-19 redemonstrated. Continues on cold a cocktail including baricitinib. Afebrile, WBC 11.7. Preliminary blood cultures reporting no growth at 24 hours Hemoglobin 11.3, platelets 333. D-dimer 1.07, LDH improving, 2005, CRP down to 13.9. Sodium 133,Potassium 3.8, BUN 37, creatinine 0.66. Blood sugars controlled. Objective - Vital Signs Vital signs: Vital Signs Temp 98.1 F 06/28/21 12:00 Pulse 65 06/28/21 15:00 Resp 20 06/28/21 15:00 BP 106/64 06/28/21 14:00 Pulse Ox 91 L 06/28/21 15:11 Intake & Output 06/27/21 06/28/21 06/28/21 18:59 06:59 18:59 Intake Total 600 700 650 Output Total 400 600 600 Balance 200 100 50 Weight 81.9 kg 81.5 kg Intake: IV 400 Sodium Chloride 0.9% 1, 400 000 ml @ 50 mls/hr IV . Q20H [facility] Rx#:[id number] Intake, IV Titration 350 600 50 Amount Sodium Chloride 0.9% 1, 350 600 50 000 ml @ 50 mls/hr IV . Q20H [facility] Rx#:[id number] Oral 250 100 200 Output: Urine 600 600 Urine/Stool Mix 400 Other: Voiding Method Bedside Commode # Bowel Movements 1 - Exam PHYSICAL EXAM: VITAL SIGNS: [As above] GENERAL: Sitting up in bed, wearing high flow nasal cannula/airvo HEENT: Conjunctivae normal. eyes normal. NECK: Supple, No JVD. CARDIOVASCULAR: S1, S2 regular.. No murmur RESPIRATION: Breath sounds diminished in the bases. Scattered rhonchi with bibasilar crackles. ABDOMEN: Soft, nontender . No guarding. no masses palpable. Positive bowel sounds. LEGS: No edema. no swelling. PSYCHIATRY: Alert and oriented X3, mood and affect normal. NERVOUS SYSTEM: Cranial N 2-12 grossly normal. Moves all 4 limbs. Diffuse weakness, No focal deficits. Strength and sensation grossly intact.. Skin: Warm and dry, no rash - Labs CBC & Chem 7: 06/28/21 05:21 06/28/21 05:21 Labs: Abnormal Lab Results - Last 24 Hours (Table) 06/26/21 06/27/21 06/28/21 Range/Units 19:06 20:11 05:21 WBC 11.7 H (3.8-10.6) k/uL Hgb 11.3 L (11.4-16.0) gm/dL Neutrophils # 8.4 H (1.3-7.7) k/uL D-Dimer (<0.60) mg/L FEU Sodium (137-145) mmol/L BUN (7-17) mg/dL Glucose (74-99) mg/dL POC Glucose (mg/dL) 166 H (75-99) mg/dL Calcium (8.4-10.2) mg/dL Lactate Dehydrogenase (313-618) U/L C-Reactive Protein (<1.0) mg/dL Procalcitonin 0.30 H (0.02-0.09) ng/mL 06/28/21 06/28/21 06/28/21 Range/Units 05:21 05:21 06:38 WBC (3.8-10.6) k/uL Hgb (11.4-16.0) gm/dL Neutrophils # (1.3-7.7) k/uL D-Dimer 1.07 H (<0.60) mg/L FEU Sodium 133 L (137-145) mmol/L BUN 37 H (7-17) mg/dL Glucose 151 H (74-99) mg/dL POC Glucose (mg/dL) 160 H (75-99) mg/dL Calcium 7.7 L (8.4-10.2) mg/dL Lactate Dehydrogenase 2006 H (313-618) U/L C-Reactive Protein 13.9 H (<1.0) mg/dL Procalcitonin (0.02-0.09) ng/mL 06/28/21 06/28/21 Range/Units 11:46 16:48 WBC (3.8-10.6) k/uL Hgb (11.4-16.0) gm/dL Neutrophils # (1.3-7.7) k/uL D-Dimer (<0.60) mg/L FEU Sodium (137-145) mmol/L BUN (7-17) mg/dL Glucose (74-99) mg/dL POC Glucose (mg/dL) 160 H 172 H (75-99) mg/dL Calcium (8.4-10.2) mg/dL Lactate Dehydrogenase (313-618) U/L C-Reactive Protein (<1.0) mg/dL Procalcitonin (0.02-0.09) ng/mL Microbiology - Last 24 Hours (Table) 06/26/21 19:00 Blood Culture - Preliminary Blood No Growth after 24 hours 06/26/21 19:06 Blood Culture - Preliminary Blood No Growth after 24 hours Assessment and Plan Assessment: Acute COVID-19 pneumonia, bilateral, symptoms 1 week Severe sepsis with organ dysfunction secondary to the above Acute hypoxic respiratory failure secondary to all the above Acute renal failure, improving with IV fluid hydration Elevated LFTs Elevated inflammatory markers secondary to covid Mild hyponatremia, improving Plan: Continue on current medication regime ,monitoring and symptomatic treatm ent. Maintain Covid cocktail. Follow with pulmonary and infectious disease closely. Prognosis guarded given multiple complex medical issues. The impression and plan of care has been dictated as directed. : I performed a history and examination of this patient, discussed the same with the dictator. I agree with the dictator's note ,documented as a scribe. Any additional findings or plans will be noted.
--- NOTE | 2021-06-28 18:47 | PN ---
PROGRESS NOTE DATE OF SERVICE: 06/28/2021 REASON FOR FOLLOWUP: COVID-19 pneumonia. INTERVAL HISTORY: The patient is afebrile. The patient is breathing slightly comfortably. The patient denies having any chest pain. He did have a cough, not bringing up any sputum. No nausea or vomiting. No abdominal pain or diarrhea. PHYSICAL EXAMINATION: Blood pressure 106/54, pulse of 74, temperature is 98.1. She is 91% on 50% high flow oxygen. General description is a middle-aged female lying in bed in no distress. Respiratory system: Unlabored breathing, decreased intensity of the breath sounds, no wheeze. Heart S1, S2. Regular rate and rhythm. Abdomen soft, no tenderness. Extremities: No edema of the feet. LABS: Hemoglobin 9.1, white count 8.7, BUN 37, creatinine ( ). IMPRESSION/PLAN: Patient with acute COVID-19 pneumonia in this patient with significant respiratory hypoxemia. Minimal clinical improvement compared to yesterday. Currently on baricitinib, dexamethasone, ( ) and monitor clinical course closely. MMODL / IJN: [id number] /
[2021-06-28] MEDS: ENOXAPARIN 40 MG/0.4 ML SYRINGE SQ SCH (20:18)
[2021-06-28 20:19] LABS: Glucose,Whole Blood 149 mg/dL (75-99)
[2021-06-29] MEDS: SODIUM CHLORIDE 0.9% 1,000 ML IV SCH (03:17)
[2021-06-29 05:52] LABS: Basophils % (A) 0 %; Eosinophils % (A) 0 %; HCT 32.6 % (34.0-46.0); HGB 11.3 gm/dL (11.4-16.0); Lymphocytes # (A) 2.1 k/uL (1.0-4.8); Lymphocytes % (A) 15 %; MCH 30.3 pg (25.0-35.0); MCHC 34.7 g/dL (31.0-37.0); MCV 87.5 fL (80.0-100.0); Monocytes # (A) 0.7 k/uL (0-1.0); Monocytes % (A) 5 %; Neutrophils # (A) 10.4 k/uL (1.3-7.7); Neutrophils % (A) 75 %; Platelet Count 391 k/uL (150-450); RBC 3.73 m/uL (3.80-5.40); RDW 13.4 % (11.5-15.5); WBC 13.8 k/uL (3.8-10.6)
[2021-06-29 06:03] LABS: ALT 45 U/L (4-34); AST 51 U/L (14-36); African American GFR (CKD) >90 (>60 ml/min/1.73 sqM); Albumin 2.7 g/dL (3.5-5.0); Alkaline Phosphatase 293 U/L (38-126); Anion Gap 8 mmol/L; Blood Urea Nitrogen 29 mg/dL (7-17); Calcium 8.1 mg/dL (8.4-10.2); Carbon Dioxide 24 mmol/L (22-30); Chloride 105 mmol/L (98-107); Glucose 139 mg/dL (74-99); LDH 1643 U/L (313-618); Non-African American GFR(CKD) >90 (>60 ml/min/1.73 sqM); Potassium 4.1 mmol/L (3.5-5.1); Sodium 137 mmol/L (137-145); Total Bilirubin 0.5 mg/dL (0.2-1.3); Total Protein 5.4 g/dL (6.3-8.2)
[2021-06-29 06:36] LABS: Glucose,Whole Blood 137 mg/dL (75-99)
[2021-06-29] MEDS: INSULIN ASPART (NovoLOG) 100 UNIT/ML VIAL SQ SCH ×4 (06:57→21:03)
[2021-06-29] MEDS: ALBUTEROL HFA INHALER INHALATION PRN ×3 (08:10→15:31)
--- NOTE | 2021-06-29 08:22 | XR ---
EXAMINATION TYPE: XR chest 1V portable DATE OF EXAM: 06/29/2021 Comparison: 06/28/2021 Clinical History: 65-year-old female COVID Findings: Heart normal size. Aorta within normal limits. Bilateral groundglass opacities and left lateral conso lidation. The consolidation shows slight interval increase compared to prior exam. No pneumothorax or pleural effusion. Impression: Continued diffuse bilateral COVID pneumonia. Consolidation is worsening on the left.
[2021-06-29] MEDS: BARICITINIB 2 MG TABLET PO SCH (08:45)
[2021-06-29] MEDS: ASCORBIC ACID 500 MG TAB PO SCH (08:45)
[2021-06-29] MEDS: PANTOPRAZOLE 40 MG/10 ML VIAL IVP SCH (08:45)
[2021-06-29] MEDS: ZINC SULFATE 220 MG CAP PO SCH (08:45)
[2021-06-29] MEDS: CHOLECALCIFEROL 25 MCG (1000 IU) TABLET PO SCH (08:45)
[2021-06-29] MEDS: DEXAMETHASONE SOD PHOSPHATE 10 MG/ML 1 ML VIAL IVP SCH ×2 (08:46→20:31)
[2021-06-29 11:28] LABS: Glucose,Whole Blood 145 mg/dL (75-99)
--- NOTE | 2021-06-29 12:42 | P.PN ---
Subjective Progress Note Date: 06/29/21 Principal diagnosis: Acute hypoxic respiratory failure secondary to COVID-19 pneumonia This is a very pleasant 65-year-old female patient who follows with Dr. Miller as her primary care provider. She has no significant past medical history. Lifelong nonsmoker. One week 06/20/2021 ago she was traveling in [facility] and developed symptoms of fever, fatigue, joint pain, sore throat. She returned back to [place] on 06/21/2021 she tested positive for COVID-19 infecti on. Her was positive as well. He did receive monoclonal antibodies and is recovering at home. She is unvaccinated. She was quite hypoxemic on arrival with saturation of 64% on room air while in the waiting room. Her chest x-ray shows extensive bilateral patchy infiltrates and airspace disease. VQ scan revealed very low probability of PE. White count 9.6. Hemoglobin 12.6. Platelets 274. D-dimer 0.99. Sodium 135. Potassium 3.8. Creatinine 0.87. Glucose 169. LDH 2239. C-reactive protein 31.9. She is seen today in consultation in the emergency room. She is currently sitting up on a stretcher. Awake and alert. Moderate respiratory distress. Continue O2 saturations 88- 90% on 15 L high flow nasal cannula. T-max of 101.4. Currently 99.8. She was given Lovenox and Decadron. She also received Remdesivir yesterday. 1 L of fluid resuscitation. Currently on 0.9 normal saline at 50 MLS per hour. Patient was reevaluated today on 06/28/21, remains in the ICU, patient is on high flow oxygen utilizing airvo at 60 L flow and 70% FiO2. Clinically the patient feels better, O2 saturation remains very marginal, high 80s and low 90s. Chest x-ray is basically the same, continues to show bilateral interstitial infiltrates consistent with COVID-19 pneumonia. WBC count today is 11.7 hemoglobin is 11.3 d-dimer is 1.07 and electrolytes are normal renal profile is normal BUN is 37 creatinine 0.66. LDH is slightly better down to 2006. C- reactive protein is 13.9, improving compared to yesterday from 31.9. Patient remains on the COVID-19 cocktail. She is also on Decadron 6 mg IV push twice a day, and she is also on baricitinib Reevaluated today on 06/29/21, remains in the ICU, on high flow oxygen, utilizing airvo, patient is on 60% FiO2 and 60 L flow. O2 saturations 91%. Remains on the COVID-19 cocktail. Remains on Lovenox 40 mg subcu daily, remains on Decadron, and on baricitinib. LDH and C-reactive proteins seems to be trending down a bit. Clinically the patient is feeling better, however her chest x-ray continues to show diffuse interstitial infiltrates bilaterally. D- dimer today is 1.34. WBC count is 13.8 hemoglobin 11.3. LDH is 1643 and C- reactive protein is 5.0. Both seem to be trending down. Objective - Vital Signs Vital signs: Vital Signs Temp 99.2 F 06/29/21 08:00 Pulse 73 06/29/21 12:00 Resp 17 06/29/21 12:00 BP 123/69 06/29/21 12:00 Pulse Ox 90 L 06/29/21 12:00 Intake & Output 06/28/21 06/29/21 06/29/21 18:59 06:59 18:59 Intake Total 1200 600 850 Output Total 800 600 Balance 400 0 850 Weight 73 kg Intake: IV 550 600 250 Sodium Chloride 0.9% 1, 550 600 250 000 ml @ 50 mls/hr IV . Q20H [facility] Rx#:[id number] Intake, IV Titration 50 Amount Sodium Chloride 0.9% 1, 50 000 ml @ 50 mls/hr IV . Q20H [facility] Rx#:[id number] Oral 600 600 Output: Urine 800 600 Other: Voiding Method Bedside Commode Bedside Commode Bedside Commode # Bowel Movements 1 - Exam Physical Exam: Revealed 65-year-old female in no distress. Remains on airvo as noted earlier. Head: Atraumatic, normocephalic. HEENT:[Neck is supple.] [No neck masses.] [No thyromegaly.] [No JVD.] Dry mucous membranes. Chest: Crackles persist at the bases bilaterally. Symmetrical chest expansion. Cardiac Exam: [Normal S1 and S2, no S3 gallop, no murmur.] Abdomen: [Soft, nontender, no megaly, no rebound, no guarding, normal bowel sounds.] Extremities: [No clubbing, no edema, no cyanosis.] Neurological Exam: [No focal neurologic deficit.] Alert oriented 3. Psychiatric: Normal mood affect and normal mental status examination. - Labs CBC & Chem 7: 06/29/21 05:25 06/29/21 05:25 Labs: Abnormal Lab Results - Last 24 Hours (Table) 06/28/21 06/28/21 06/29/21 Range/Units 16:48 20:17 05:25 WBC (3.8-10.6) k/uL RBC (3.80-5.40) m/uL Hgb (11.4-16.0) gm/dL Hct (34.0-46.0) % Neutrophils # (1.3-7.7) k/uL D-Dimer (<0.60) mg/L FEU BUN 29 H (7-17) mg/dL Glucose 139 H (74-99) mg/dL POC Glucose (mg/dL) 172 H 149 H (75-99) mg/dL Calcium 8.1 L (8.4-10.2) mg/dL AST 51 H (14-36) U/L ALT 45 H (4-34) U/L Alkaline Phosphatase 293 H (38-126) U/L Lactate Dehydrogenase 1643 H (313-618) U/L C-Reactive Protein 5.0 H (<1.0) mg/dL Total Protein 5.4 L (6.3-8.2) g/dL Albumin 2.7 L (3.5-5.0) g/dL 06/29/21 06/29/21 06/29/21 Range/Units 05:25 05:25 06:33 WBC 13.8 H (3.8-10.6) k/uL RBC 3.73 L (3.80-5.40) m/uL Hgb 11.3 L (11.4-16.0) gm/dL Hct 32.6 L (34.0-46.0) % Neutrophils # 10.4 H (1.3-7.7) k/uL D-Dimer 1.34 H (<0.60) mg/L FEU BUN (7-17) mg/dL Glucose (74-99) mg/dL POC Glucose (mg/dL) 137 H (75-99) mg/dL Calcium (8.4-10.2) mg/dL AST (14-36) U/L ALT (4-34) U/L Alkaline Phosphatase (38-126) U/L Lactate Dehydrogenase (313-618) U/L C-Reactive Protein (<1.0) mg/dL Total Protein (6.3-8.2) g/dL Albumin (3.5-5.0) g/dL 06/29/21 Range/Units 11:26 WBC (3.8-10.6) k/uL RBC (3.80-5.40) m/uL Hgb (11.4-16.0) gm/dL Hct (34.0-46.0) % Neutrophils # (1.3-7.7) k/uL D-Dimer (<0.60) mg/L FEU BUN (7-17) mg/dL Glucose (74-99) mg/dL POC Glucose (mg/dL) 145 H (75-99) mg/dL Calcium (8.4-10.2) mg/dL AST (14-36) U/L ALT (4-34) U/L Alkaline Phosphatase (38-126) U/L Lactate Dehydrogenase (313-618) U/L C-Reactive Protein (<1.0) mg/dL Total Protein (6.3-8.2) g/dL Albumin (3.5-5.0) g/dL Microbiology - Last 24 Hours (Table) 06/26/21 19:00 Blood Culture - Preliminary Blood No Growth after 48 hours 06/26/21 19:06 Blood Culture - Preliminary Blood No Growth after 48 hours Assessment and Plan Assessment: Acute hypoxic respiratory failure secondary to COVID-19 pneumonia, and vaccinated. Received 1 dose of remdesivir, however considering her FiO2 requirement, patient is now on baricitinib. Overall the patient is clinically better, chest x-ray is not much different. Elevated inflammatory markers secondary to COVID-19 pneumonia, but seems to be improving. Recommendation: Continue to monitor the patient in the ICU Continue high flow oxygen and titrate accordingly Continue COVID-19 cocktail. And that includes Lovenox, Decadron, vitamin supplements, Continue baricitinib Will continue to follow. Time with Patient: Less than 30
[2021-06-29 16:28] LABS: Glucose,Whole Blood 156 mg/dL (75-99)
--- NOTE | 2021-06-29 16:28 | P.PN ---
Subjective Progress Note Date: 06/29/21 This is a pleasant 65-year-old female with no significant past medical history, nonsmoker, and unvaccinated for COVID. Reports symptoms of fatigue and sore throat and fever, generalized joint pain started a week ago after traveling to [place], [place]. Upon returning home both she and her tested positive for COVID-19 on 06/21/21. Both presented to the ER with complaints of worsening hypoxia. Her received monoclonal antibodies and discharged home. On admission patient's O2 sat on room air 64%, temperature 101.4, respiratory rate 24, blood pressure/heart rate stable. Normal WBC, hemoglobin 12.6, platelets 274, d-dimer 1.35 now down to 0.99, ferritin 2575, LDH 2311, down to 2239 , CRP 34 -currently 31.9, coronavirus detected, sodium 135. Potassium 3.1, received supplementation currently up to 3.8, BUN 30, creatinine 1.43 currently 27, 0.87, blood sugars stable, T bili 0.9, AST 133, ALT 65, alk phos 461 Chest x-ray reported new bilateral extensive pneumonia. EKG is normal sinus rhythm. VQ scan reporting very low probability of PE. Received a dose of Remdesevir in the ER, now on Baricitinib. 06/28/2021 maintained on airvo 60 L flow/70% FiO2, maintaining O2 sats of 89- 93%. States she feels better. Chest x-ray with no significant change,reporting bilateral multifocal and confluent opacity consistent with COVID-19 redemonstrated. Continues on cold a cocktail including baricitinib. Afebrile, WBC 11.7. Preliminary blood cultures reporting no growth at 24 hours Hemoglobin 11.3, platelets 333. D-dimer 1.07, LDH improving, 2005, CRP down to 13.9. Sodium 133,Potassium 3.8, BUN 37, creatinine 0.66. Blood sugars controlled. 06/29/2021 continues on Covid cocktail including baricitinib. D-dimer up to 1.34, LDH and CRP improving.Remains on airvo 60L flow/ 60% FiO2, O2 sats 85%. Chest x-ray reporting continued diffuse bilateral Covid pneumonia with co nsolidation worsening on the left. Hemoglobin 9.3, platelets 391.T-max 99.2, WBC 13.8. Pulmonary blood cultures no growth at 48 hours. Renal function stable. Denies chest pressure, palpitations. Consuming 75%, blood sugars controlled. Objective - Vital Signs Vital signs: Vital Signs Temp 98.4 F 06/29/21 15:00 Pulse 61 06/29/21 15:00 Resp 16 06/29/21 15:00 BP 113/73 06/29/21 15:00 Pulse Ox 94 L 06/29/21 15:31 Intake & Output 06/28/21 06/29/21 06/29/21 18:59 06:59 18:59 Intake Total 7775 250 3362 Output Total 800 600 300 Balance 400 0 1230 Weight 73 kg Intake: IV 550 600 450 Sodium Chloride 0.9% 1, 550 600 450 000 ml @ 50 mls/hr IV . Q20H [facility] Rx#:[id number] Intake, IV Titration 50 Amount Sodium Chloride 0.9% 1, 50 000 ml @ 50 mls/hr IV . Q20H [facility] Rx#:[id number] Oral 600 1080 Output: Urine 800 600 300 Other: Voiding Method Bedside Commode Bedside Commode Bedside Commode # Voids 1 # Bowel Movements 1 1 - Exam PHYSICAL EXAM: VITAL SIGNS: [As above] GENERAL: Sitting up in bed, wearing high flow nasal cannula/airvo HEENT: Conjunctivae normal. eyes normal. Oral mucosa dry. NECK: Supple, No JVD. CARDIOVASCULAR: S1, S2 regular.No murmur RESPIRATION: Breath sounds diminished in the bases.Bibasilar crackles. ABDOMEN: Soft, nontender . No guarding. no masses palpable. Positive bowel sounds. LEGS: No edema. no swelling. PSYCHIATRY: Alert and oriented X3, mood and affect normal. NERVOUS SYSTEM: Cranial N 2-12 grossly normal. Moves all 4 limbs. No focal deficits. Strength and sensation grossly intact.. Skin: Warm and dry, no rash - Labs CBC & Chem 7: 06/29/21 05:25 06/29/21 05:25 Labs: Abnormal Lab Results - Last 24 Hours (Table) 06/28/21 06/28/21 06/29/21 Range/Units 16:48 20:17 05:25 WBC (3.8-10.6) k/uL RBC (3.80-5.40) m/uL Hgb (11.4-16.0) gm/dL Hct (34.0-46.0) % Neutrophils # (1.3-7.7) k/uL D-Dimer (<0.60) mg/L FEU BUN 29 H (7-17) mg/dL Glucose 139 H (74-99) mg/dL POC Glucose (mg/dL) 172 H 149 H (75-99) mg/dL Calcium 8.1 L (8.4-10.2) mg/dL AST 51 H (14-36) U/L ALT 45 H (4-34) U/L Alkaline Phosphatase 293 H (38-126) U/L Lactate Dehydrogenase 1643 H (313-618) U/L C-Reactive Protein 5.0 H (<1.0) mg/dL Total Protein 5.4 L (6.3-8.2) g/dL Albumin 2.7 L (3.5-5.0) g/dL 06/29/21 06/29/21 06/29/21 Range/Units 05:25 05:25 06:33 WBC 13.8 H (3.8-10.6) k/uL RBC 3.73 L (3.80-5.40) m/uL Hgb 11.3 L (11.4-16.0) gm/dL Hct 32.6 L (34.0-46.0) % Neutrophils # 10.4 H (1.3-7.7) k/uL D-Dimer 1.34 H (<0.60) mg/L FEU BUN (7-17) mg/dL Glucose (74-99) mg/dL POC Glucose (mg/dL) 137 H (75-99) mg/dL Calcium (8.4-10.2) mg/dL AST (14-36) U/L ALT (4-34) U/L Alkaline Phosphatase (38-126) U/L Lactate Dehydrogenase (313-618) U/L C-Reactive Protein (<1.0) mg/dL Total Protein (6.3-8.2) g/dL Albumin (3.5-5.0) g/dL 06/29/21 Range/Units 11:26 WBC (3.8-10.6) k/uL RBC (3.80-5.40) m/uL Hgb (11.4-16.0) gm/dL Hct (34.0-46.0) % Neutrophils # (1.3-7.7) k/uL D-Dimer (<0.60) mg/L FEU BUN (7-17) mg/dL Glucose (74-99) mg/dL POC Glucose (mg/dL) 145 H (75-99) mg/dL Calcium (8.4-10.2) mg/dL AST (14-36) U/L ALT (4-34) U/L Alkaline Phosphatase (38-126) U/L Lactate Dehydrogenase (313-618) U/L C-Reactive Protein (<1.0) mg/dL Total Protein (6.3-8.2) g/dL Albumin (3.5-5.0) g/dL Microbiology - Last 24 Hours (Table) 06/26/21 19:00 Blood Culture - Preliminary Blood No Growth after 48 hours 06/26/21 19:06 Blood Culture - Preliminary Blood No Growth after 48 hours Assessment and Plan Assessment: Acute COVID-19 pneumonia, bilateral, symptoms 1 week Severe sepsis with organ dysfunction secondary to the above Acute hypoxic respiratory failure secondary to all the above Acute renal failure, resolved with IV fluid hydration Elevated LFTs Elevated inflammatory markers secondary to covid Mild hyponatremia, resolved Plan: Continue on current medication regime ,monitoring and symptomatic treatment. Maintain Covid cocktail. Follow with pulmonary and infectious disease closely. The impression and plan of care has been dictated as directed. : I performed a history and examination of this patient, discussed the same with the dictator. I agree with the dictator's note ,documented as a scribe. Any additional findings or plans will be noted.
--- NOTE | 2021-06-29 16:59 | PN ---
PROGRESS NOTE DATE OF SERVICE: 06/29/2021 REASON FOR FOLLOWUP: COVID-19 pneumonia. INTERVAL HISTORY: The patient is afebrile. The patient is breathing slightly comfortably today. The patient denies having any chest pain. Did have a cough, not bringing up any sputum. No vomiting. No abdominal pain, no diarrhea. PHYSICAL EXAMINATION: Blood pressure 100/66, pulse of 64, temperature 98. She is 95% on 50% FiO2. General description is a middle-aged female up in the chair in no distress. Respiratory system: Unlabored breathing. Coarse breath sounds in the bases bilaterally. No wheeze. Heart S1, S2. Regular rhythm. Abdomen soft, no tenderness. Extremities: No edema of the feet. LABS: Hemoglobin 11.8, white count 13.8. D-dimer is 1.34. BUN of 29, creatinine 0.70. DIAGNOSTIC IMPRESSION AND PLAN: Patient with acute COVID-19 pneumonia with acute respiratory failure. The patient did have minimal clinical improvement. Condition remains to be clinical. Continue with baricitinib, Decadron, Lovenox, zinc and ascorbic acid and respiratory support and monitor clinical course closely. MMODL / IJN: [id number] /
[2021-06-29] MEDS: ENOXAPARIN 40 MG/0.4 ML SYRINGE SQ SCH (20:31)
[2021-06-29 20:51] LABS: Glucose,Whole Blood 123 mg/dL (75-99)
[2021-06-30] MEDS: SODIUM CHLORIDE 0.9% 1,000 ML IV SCH ×2 (01:45→17:36)
[2021-06-30] MEDS: INSULIN ASPART (NovoLOG) 100 UNIT/ML VIAL SQ SCH ×4 (07:01→20:51)
[2021-06-30 07:02] LABS: Glucose,Whole Blood 122 mg/dL (75-99)
--- NOTE | 2021-06-30 07:47 | XR ---
EXAMINATION TYPE: XR chest 1V portable DATE OF EXAM: 06/30/2021 COMPARISON: Chest x-ray 06/29/2021 HISTORY: Covid pneumonia TECHNIQUE: Single frontal view of the chest is obtained. FINDINGS: Bilateral airspace disease shows a similar appearance. There is no evident pneumothorax or pleural effusion. There are overlying artifacts. Cardiac mediastinal silhouette is stable. IMPRESSION: Findings consistent with patient's history of Covid pneumonia
[2021-06-30 07:48] LABS: Basophils % (A) 0 %; Eosinophils % (A) 0 %; HCT 33.6 % (34.0-46.0); HGB 11.1 gm/dL (11.4-16.0); Lymphocytes # (A) 1.7 k/uL (1.0-4.8); Lymphocytes % (A) 11 %; MCH 29.5 pg (25.0-35.0); MCHC 33.1 g/dL (31.0-37.0); MCV 89.3 fL (80.0-100.0); Mean Platelet Volume 9.1; Monocytes # (A) 0.8 k/uL (0-1.0); Monocytes % (A) 5 %; Neutrophils # (A) 12.6 k/uL (1.3-7.7); Neutrophils % (A) 82 %; Platelet Count 381 k/uL (150-450); RBC 3.77 m/uL (3.80-5.40); RDW 12.9 % (11.5-15.5); WBC 15.3 k/uL (3.8-10.6)
[2021-06-30] MEDS: ALBUTEROL HFA INHALER INHALATION PRN (07:54)
[2021-06-30 08:50] LABS: C Reactive Protein 3.5 mg/dL (<1.0)
[2021-06-30] MEDS: BARICITINIB 2 MG TABLET PO SCH (09:00)
[2021-06-30] MEDS: ASCORBIC ACID 500 MG TAB PO SCH (09:00)
[2021-06-30] MEDS: CHOLECALCIFEROL 25 MCG (1000 IU) TABLET PO SCH (09:00)
[2021-06-30] MEDS: ZINC SULFATE 220 MG CAP PO SCH (09:00)
[2021-06-30] MEDS: PANTOPRAZOLE 40 MG/10 ML VIAL IVP SCH (09:01)
[2021-06-30] MEDS: DEXAMETHASONE SOD PHOSPHATE 10 MG/ML 1 ML VIAL IVP SCH ×2 (09:01→20:13)
[2021-06-30 11:16] LABS: Glucose,Whole Blood 174 mg/dL (75-99)
[2021-06-30] MEDS ORDERED: BENZONATATE 100 MG CAP PO PRN (11:50)
[2021-06-30] MEDS ORDERED: SODIUM CHLORIDE 0.65% NASAL SPRAY 44 ML BTL NASAL PRN (11:53)
[2021-06-30] MEDS: ALBUTEROL HFA INHALER INHALATION SCH ×3 (11:57→19:26)
--- NOTE | 2021-06-30 15:05 | P.PN ---
Subjective Progress Note Date: 06/30/21 Principal diagnosis: Acute hypoxic respiratory failure secondary to COVID-19 pneumonia This is a very pleasant 65-year-old female patient who follows with Dr. Miller as her primary care provider. She has no significant past medical history. Lifelong nonsmoker. One week 06/20/2021 ago she was traveling in [facility] and developed symptoms of fever, fatigue, joint pain, sore throat. She returned back to [place] on 06/21/2021 she tested positive for COVID-19 infecti on. Her was positive as well. He did receive monoclonal antibodies and is recovering at home. She is unvaccinated. She was quite hypoxemic on arrival with saturation of 64% on room air while in the waiting room. Her chest x-ray shows extensive bilateral patchy infiltrates and airspace disease. VQ scan revealed very low probability of PE. White count 9.6. Hemoglobin 12.6. Platelets 274. D-dimer 0.99. Sodium 135. Potassium 3.8. Creatinine 0.87. Glucose 169. LDH 2239. C-reactive protein 31.9. She is seen today in consultation in the emergency room. She is currently sitting up on a stretcher. Awake and alert. Moderate respiratory distress. Continue O2 saturations 88- 90% on 15 L high flow nasal cannula. T-max of 101.4. Currently 99.8. She was given Lovenox and Decadron. She also received Remdesivir yesterday. 1 L of fluid resuscitation. Currently on 0.9 normal saline at 50 MLS per hour. Patient was reevaluated today on 06/28/21, remains in the ICU, patient is on high flow oxygen utilizing airvo at 60 L flow and 70% FiO2. Clinically the patient feels better, O2 saturation remains very marginal, high 80s and low 90s. Chest x-ray is basically the same, continues to show bilateral interstitial infiltrates consistent with COVID-19 pneumonia. WBC count today is 11.7 hemoglobin is 11.3 d-dimer is 1.07 and electrolytes are normal renal profile is normal BUN is 37 creatinine 0.66. LDH is slightly better down to 2006. C- reactive protein is 13.9, improving compared to yesterday from 31.9. Patient remains on the COVID-19 cocktail. She is also on Decadron 6 mg IV push twice a day, and she is also on baricitinib Reevaluated today on 06/29/21, remains in the ICU, on high flow oxygen, utilizing airvo, patient is on 60% FiO2 and 60 L flow. O2 saturations 91%. Remains on the COVID-19 cocktail. Remains on Lovenox 40 mg subcu daily, remains on Decadron, and on baricitinib. LDH and C-reactive proteins seems to be trending down a bit. Clinically the patient is feeling better, however her chest x-ray continues to show diffuse interstitial infiltrates bilaterally. D- dimer today is 1.34. WBC count is 13.8 hemoglobin 11.3. LDH is 1643 and C- reactive protein is 5.0. Both seem to be trending down. Reevaluated today on 06/30/2021, patient remains in the ICU, remains on high flow oxygen, unchanged, remains on 60% FiO2 and 60 L flow, O2 saturation is in the low 90s. Surprisingly the patient seems to be very comfortable, not in distress. WBC count 15.3 hemoglobin is 11.1. LDH is 1697 C-reactive protein is 3.5 chest x-ray showed no major change, consistent with COVID-19 pneumonia Objective - Vital Signs Vital signs: Vital Signs Temp 97.8 F 06/30/21 04:00 Pulse 71 06/30/21 12:00 Resp 24 06/30/21 12:00 BP 124/87 06/30/21 12:00 Pulse Ox 91 L 06/30/21 12:00 Intake & Output 06/29/21 06/30/21 06/30/21 18:59 06:59 18:59 Intake Total 1680 600 660 Output Total 500 550 600 Balance 1180 50 60 Weight 73.9 kg Intake: IV 600 600 300 Sodium Chloride 0.9% 1, 600 600 300 000 ml @ 50 mls/hr IV . Q20H [facility] Rx#:[id number] Oral 1080 360 Output: Urine 500 550 600 Other: Voiding Method Bedside Commode Bedside Commode Bedside Commode # Voids 1 1 1 # Bowel Movements 1 1 1 - Exam Physical Exam: Revealed 65-year-old female in no distress. On Airvo 60% FiO2, and 60 L flow Head: Atraumatic, normocephalic. HEENT:[Neck is supple.] [No neck masses.] [No thyromegaly.] [No JVD.] Dry mucous membranes. Chest: Crackles persist at the bases bilaterally Cardiac Exam: [Normal S1 and S2, no S3 gallop, no murmur.] Abdomen: [Soft, nontender, no megaly, no rebound, no guarding, normal bowel sounds.] Extremities: [No clubbing, no edema, no cyanosis.] Neurological Exam: [No focal neurologic deficit.] Alert oriented 3. Psychiatric: Normal mood affect and normal mental status examination. - Labs CBC & Chem 7: 06/30/21 07:17 06/29/21 05:25 Labs: Abnormal Lab Results - Last 24 Hours (Table) 06/29/21 06/29/21 06/30/21 Range/Units 16:25 20:49 06:58 WBC (3.8-10.6) k/uL RBC (3.80-5.40) m/uL Hgb (11.4-16.0) gm/dL Hct (34.0-46.0) % Neutrophils # (1.3-7.7) k/uL D-Dimer (<0.60) mg/L FEU POC Glucose (mg/dL) 156 H 123 H 122 H (75-99) mg/dL Lactate Dehydrogenase (313-618) U/L C-Reactive Protein (<1.0) mg/dL 06/30/21 06/30/21 06/30/21 Range/Units 07:17 07:17 07:17 WBC 15.3 H (3.8-10.6) k/uL RBC 3.77 L (3.80-5.40) m/uL Hgb 11.1 L (11.4-16.0) gm/dL Hct 33.6 L (34.0-46.0) % Neutrophils # 12.6 H (1.3-7.7) k/uL D-Dimer 2.37 H (<0.60) mg/L FEU POC Glucose (mg/dL) (75-99) mg/dL Lactate Dehydrogenase 1697 H (313-618) U/L C-Reactive Protein 3.5 H (<1.0) mg/dL 06/30/21 Range/Units 11:14 WBC (3.8-10.6) k/uL RBC (3.80-5.40) m/uL Hgb (11.4-16.0) gm/dL Hct (34.0-46.0) % Neutrophils # (1.3-7.7) k/uL D-Dimer (<0.60) mg/L FEU POC Glucose (mg/dL) 174 H (75-99) mg/dL Lactate Dehydrogenase (313-618) U/L C-Reactive Protein (<1.0) mg/dL Microbiology - Last 24 Hours (Table) 06/26/21 19:00 Blood Culture - Preliminary Blood No Growth after 72 hours 06/26/21 19:06 Blood Culture - Preliminary Blood No Growth after 72 hours Assessment and Plan Assessment: Acute hypoxic respiratory failure secondary to COVID-19 pneumonia, unvaccinated. Received 1 dose of remdesivir, however considering her FiO2 requirement, patient is now on baricitinib. Overall the patient is clinically better, chest x-ray is not much different. Elevated inflammatory markers secondary to COVID-19 pneumonia Recommendation: Continue to monitor the patient in the ICU Continue high flow oxygen and titrate accordingly Continue COVID-19 cocktail. And that includes Lovenox, Decadron, vitamin supplements, Continue baricitinib Will continue to follow. Time with Patient: Less than 30
--- NOTE | 2021-06-30 16:59 | PN ---
PROGRESS NOTE DATE OF SERVICE: 06/30/2021 REASON FOR FOLLOWUP: COVID-19 pneumonia. INTERVAL HISTORY: Patient is afebrile. Patient is breathing more comfortably/ the patient denies having any chest pain. She did have a cough mostly dry. No nausea no vomiting no abdominal pain. No diarrhea. PHYSICAL EXAMINATION: Blood pressure is 106/147, pulse of 71, temperature, she is 91% on 50% FiO2. General description is an elderly female up in the bed in no distress. Respiratory system unlabored breathing coarse breath sounds at the base. No wheeze. Heart S1, S2. Regular rate and rhythm. LABS: Hemoglobin is 11.1, white count 15.3. CRP is 3.5. DIAGNOSTIC IMPRESSION AND PLAN: Patient with acute COVID-19 pneumonia. X-ray with no worsening or improvement. Covered with baricitinib, Decadron. Elevated white count more likely side effect. Monitor closely. Continue supportive care. MMODL / IJN: [id number] /
[2021-06-30 17:15] LABS: Glucose,Whole Blood 207 mg/dL (75-99)
[2021-06-30] MEDS: ENOXAPARIN 40 MG/0.4 ML SYRINGE SQ SCH (20:14)
[2021-06-30 20:43] LABS: Glucose,Whole Blood 163 mg/dL (75-99)
[2021-07-01 04:16] LABS: Basophils % (A) 0 %; Eosinophils % (A) 0 %; HCT 33.9 % (34.0-46.0); HGB 11.4 gm/dL (11.4-16.0); Lymphocytes # (A) 1.5 k/uL (1.0-4.8); Lymphocytes % (A) 9 %; MCH 29.8 pg (25.0-35.0); MCHC 33.6 g/dL (31.0-37.0); MCV 88.6 fL (80.0-100.0); Monocytes # (A) 0.7 k/uL (0-1.0); Monocytes % (A) 5 %; Neutrophils % (A) 85 %; Platelet Count 373 k/uL (150-450); RBC 3.83 m/uL (3.80-5.40); RDW 12.7 % (11.5-15.5); WBC 16.4 k/uL (3.8-10.6)
[2021-07-01 04:32] LABS: ALT 39 U/L (4-34); AST 39 U/L (14-36); African American GFR (CKD) >90 (>60 ml/min/1.73 sqM); Albumin 2.7 g/dL (3.5-5.0); Alkaline Phosphatase 212 U/L (38-126); Anion Gap 5 mmol/L; Blood Urea Nitrogen 19 mg/dL (7-17); C Reactive Protein 3.4 mg/dL (<1.0); Calcium 8.1 mg/dL (8.4-10.2); Carbon Dioxide 24 mmol/L (22-30); Chloride 103 mmol/L (98-107); Glucose 119 mg/dL (74-99); LDH 1769 U/L (313-618); Non-African American GFR(CKD) >90 (>60 ml/min/1.73 sqM); Potassium 4.2 mmol/L (3.5-5.1); Sodium 132 mmol/L (137-145); Total Bilirubin 0.5 mg/dL (0.2-1.3); Total Protein 5.5 g/dL (6.3-8.2)
[2021-07-01 06:15] LABS: Glucose,Whole Blood 118 mg/dL (75-99)
[2021-07-01] MEDS: INSULIN ASPART (NovoLOG) 100 UNIT/ML VIAL SQ SCH ×4 (06:40→20:36)
[2021-07-01] MEDS: ALBUTEROL HFA INHALER INHALATION SCH ×4 (07:20→19:58)
[2021-07-01] MEDS: PANTOPRAZOLE 40 MG/10 ML VIAL IVP SCH (09:35)
[2021-07-01] MEDS: BARICITINIB 2 MG TABLET PO SCH (09:35)
[2021-07-01] MEDS: ASCORBIC ACID 500 MG TAB PO SCH (09:35)
[2021-07-01] MEDS: CHOLECALCIFEROL 25 MCG (1000 IU) TABLET PO SCH (09:36)
[2021-07-01] MEDS: DEXAMETHASONE SOD PHOSPHATE 10 MG/ML 1 ML VIAL IVP SCH ×2 (09:36→20:37)
[2021-07-01] MEDS: ZINC SULFATE 220 MG CAP PO SCH (09:36)
[2021-07-01 11:18] LABS: Glucose,Whole Blood 158 mg/dL (75-99)
[2021-07-01] MEDS: SODIUM CHLORIDE 0.9% 1,000 ML IV SCH (13:23)
--- NOTE | 2021-07-01 15:13 | P.PN ---
Subjective Progress Note Date: 06/30/21 Principal diagnosis: Acute hypoxic respiratory failure secondary to COVID-19 pneumonia Elevated inflammatory markers secondary to COVID-19 pneumonia 06/30/2021 patient is seen and evaluated in the ICU, remains on high flow oxygen, unchanged, remains on 60% FiO2 and 60 L flow, O2 saturation is in the low 90s. Surprisingly the patient seems to be very comfortable, not in distress. WBC count 15.3 hemoglobin is 11.1. LDH is 1697 C-reactive protein is 3.5 chest x- ray showed no major change, consistent with COVID-19 pneumonia Continue high flow oxygen and titrate accordingly; Continue COVID-19 cocktail Lovenox, Decadron, vitamin supplements; remains on baricitinib Objective - Vital Signs Vital signs: Vital Signs Temp 97.8 F 06/30/21 04:00 Pulse 71 06/30/21 12:00 Resp 24 06/30/21 12:00 BP 124/87 06/30/21 12:00 Pulse Ox 91 L 06/30/21 12:00 Intake & Output 06/29/21 06/30/21 06/30/21 18:59 06:59 18:59 Intake Total 1680 600 660 Output Total 500 550 600 Balance 1180 50 60 Weight 73.9 kg Intake: IV 600 600 300 Sodium Chloride 0.9% 1, 600 600 300 000 ml @ 50 mls/hr IV . Q20H [facility] Rx#:[id number] Oral 1080 360 Output: Urine 500 550 600 Other: Voiding Method Bedside Commode Bedside Commode Bedside Commode # Voids 1 1 1 # Bowel Movements 1 1 1 - Exam Physical Exam: Revealed 65-year-old female in no distress. Remains on airvo as noted earlier. Head: Atraumatic, normocephalic. HEENT:[Neck is supple.] [No neck masses.] [No thyromegaly.] [No JVD.] Dry mucous membranes. Chest: Crackles persist at the bases bilaterally. Symmetrical chest expansion. Cardiac Exam: [Normal S1 and S2, no S3 gallop, no murmur.] Abdomen: [Soft, nontender, no megaly, no rebound, no guarding, normal bowel sounds.] Extremities: [No clubbing, no edema, no cyanosis.] Neurological Exam: [No focal neurologic deficit.] Alert oriented 3. Psychiatric: Normal mood affect and normal mental status examination. - Labs CBC & Chem 7: 07/01/21 03:53 07/01/21 03:53 Labs: Abnormal Lab Results - Last 24 Hours (Table) 06/29/21 06/29/21 06/30/21 Range/Units 16:25 20:49 06:58 WBC (3.8-10.6) k/uL RBC (3.80-5.40) m/uL Hgb (11.4-16.0) gm/dL Hct (34.0-46.0) % Neutrophils # (1.3-7.7) k/uL D-Dimer (<0.60) mg/L FEU POC Glucose (mg/dL) 156 H 123 H 122 H (75-99) mg/dL Lactate Dehydrogenase (313-618) U/L C-Reactive Protein (<1.0) mg/dL 06/30/21 06/30/21 06/30/21 Range/Units 07:17 07:17 07:17 WBC 15.3 H (3.8-10.6) k/uL RBC 3.77 L (3.80-5.40) m/uL Hgb 11.1 L (11.4-16.0) gm/dL Hct 33.6 L (34.0-46.0) % Neutrophils # 12.6 H (1.3-7.7) k/uL D-Dimer 2.37 H (<0.60) mg/L FEU POC Glucose (mg/dL) (75-99) mg/dL Lactate Dehydrogenase 1697 H (313-618) U/L C-Reactive Protein 3.5 H (<1.0) mg/dL 06/30/21 Range/Units 11:14 WBC (3.8-10.6) k/uL RBC (3.80-5.40) m/uL Hgb (11.4-16.0) gm/dL Hct (34.0-46.0) % Neutrophils # (1.3-7.7) k/uL D-Dimer (<0.60) mg/L FEU POC Glucose (mg/dL) 174 H (75-99) mg/dL Lactate Dehydrogenase (313-618) U/L C-Reactive Protein (<1.0) mg/dL Microbiology - Last 24 Hours (Table) 06/26/21 19:00 Blood Culture - Preliminary Blood No Growth after 72 hours 06/26/21 19:06 Blood Culture - Preliminary Blood No Growth after 72 hours Assessment and Plan Assessment: Acute hypoxic respiratory failure secondary to COVID-19 pneumonia, and vaccinated. Received 1 dose of remdesivir, however considering her FiO2 re quirement, patient is now on baricitinib. Overall the patient is clinically better, chest x-ray is not much different. Elevated inflammatory markers secondary to COVID-19 pneumonia, but seems to be i mproving. Recommendation: Continue to monitor the patient in the ICU Continue high flow oxygen and titrate accordingly Continue COVID-19 cocktail. And that includes Lovenox, Decadron, vitamin supple ments, Continue baricitinib Will continue to follow.
--- NOTE | 2021-07-01 15:49 | P.PN ---
Subjective Progress Note Date: 07/01/21 Principal diagnosis: Acute hypoxic respiratory failure secondary to COVID-19 pneumonia This is a very pleasant 65-year-old female patient who follows with Dr. Miller as her primary care provider. She has no significant past medical history. Lifelong nonsmoker. One week 06/20/2021 ago she was traveling in [facility] and developed symptoms of fever, fatigue, joint pain, sore throat. She returned back to [place] on 06/21/2021 she tested positive for COVID-19 infecti on. Her was positive as well. He did receive monoclonal antibodies and is recovering at home. She is unvaccinated. She was quite hypoxemic on arrival with saturation of 64% on room air while in the waiting room. Her chest x-ray shows extensive bilateral patchy infiltrates and airspace disease. VQ scan revealed very low probability of PE. White count 9.6. Hemoglobin 12.6. Platelets 274. D-dimer 0.99. Sodium 135. Potassium 3.8. Creatinine 0.87. Glucose 169. LDH 2239. C-reactive protein 31.9. She is seen today in consultation in the emergency room. She is currently sitting up on a stretcher. Awake and alert. Moderate respiratory distress. Continue O2 saturations 88- 90% on 15 L high flow nasal cannula. T-max of 101.4. Currently 99.8. She was given Lovenox and Decadron. She also received Remdesivir yesterday. 1 L of fluid resuscitation. Currently on 0.9 normal saline at 50 MLS per hour. Patient was reevaluated today on 06/28/21, remains in the ICU, patient is on high flow oxygen utilizing airvo at 60 L flow and 70% FiO2. Clinically the patient feels better, O2 saturation remains very marginal, high 80s and low 90s. Chest x-ray is basically the same, continues to show bilateral interstitial infiltrates consistent with COVID-19 pneumonia. WBC count today is 11.7 hemoglobin is 11.3 d-dimer is 1.07 and electrolytes are normal renal profile is normal BUN is 37 creatinine 0.66. LDH is slightly better down to 2006. C- reactive protein is 13.9, improving compared to yesterday from 31.9. Patient remains on the COVID-19 cocktail. She is also on Decadron 6 mg IV push twice a day, and she is also on baricitinib Reevaluated today on 06/29/21, remains in the ICU, on high flow oxygen, utilizing airvo, patient is on 60% FiO2 and 60 L flow. O2 saturations 91%. Remains on the COVID-19 cocktail. Remains on Lovenox 40 mg subcu daily, remains on Decadron, and on baricitinib. LDH and C-reactive proteins seems to be trending down a bit. Clinically the patient is feeling better, however her chest x-ray continues to show diffuse interstitial infiltrates bilaterally. D- dimer today is 1.34. WBC count is 13.8 hemoglobin 11.3. LDH is 1643 and C- reactive protein is 5.0. Both seem to be trending down. Reevaluated today on 06/30/2021, patient remains in the ICU, remains on high flow oxygen, unchanged, remains on 60% FiO2 and 60 L flow, O2 saturation is in the low 90s. Surprisingly the patient seems to be very comfortable, not in distress. WBC count 15.3 hemoglobin is 11.1. LDH is 1697 C-reactive protein is 3.5 chest x-ray showed no major change, consistent with COVID-19 pneumonia Patient was reevaluated today on 07/01/2021, remains in the ICU, she is now on 55% FiO2, 60 L flow, O2 saturation is 92%. Patient seems to be doing fairly well, not in any distress, no chest x-ray was done today. the patient seems to be feeling better. Breathing a bit easier. LDH today is 1769 C-reactive protein is 3.4, not much of a change compared to markers yesterday. WBC count today is 16.4 hemoglobin 11.4. D-dimer is up to 5.54. Electrolytes are normal. Objective - Vital Signs Vital signs: Vital Signs Temp 98.2 F 07/01/21 09:00 Pulse 83 07/01/21 12:00 Resp 25 H 07/01/21 12:00 BP 116/65 07/01/21 12:00 Pulse Ox 88 L 07/01/21 12:00 Intake & Output 06/30/21 07/01/21 07/01/21 18:59 06:59 18:59 Intake Total 1010 550 660 Output Total 1450 1125 225 Balance -440 -575 435 Weight 73.2 kg Intake: IV 650 550 300 Sodium Chloride 0.9% 1, 650 550 300 000 ml @ 50 mls/hr IV . Q20H [facility] Rx#:[id number] Oral 360 360 Output: Urine 1450 1125 225 Other: Voiding Method Bedside Commode Bedside Commode Bedside Commode # Voids 1 # Bowel Movements 1 - Exam Physical Exam: Revealed 65-year-old female in no distress. On Airvo 55% FiO2, and 60 L flow Head: Atraumatic, normocephalic. HEENT:[Neck is supple.] [No neck masses.] [No thyromegaly.] [No JVD.] Dry mucous membranes. Chest: Crackles persist at the bases bilaterally Cardiac Exam: [Normal S1 and S2, no S3 gallop, no murmur.] Abdomen: [Soft, nontender, no megaly, no rebound, no guarding, normal bowel sounds.] Extremities: [No clubbing, no edema, no cyanosis.] Neurological Exam: [No focal neurologic deficit.] Alert oriented 3. Psychiatric: Normal mood affect and normal mental status examination. - Labs CBC & Chem 7: 07/01/21 03:53 07/01/21 03:53 Labs: Abnormal Lab Results - Last 24 Hours (Table) 06/30/21 06/30/21 07/01/21 Range/Units 17:13 20:42 03:53 WBC 16.4 H (3.8-10.6) k/uL Hct 33.9 L (34.0-46.0) % Neutrophils # 14.0 H (1.3-7.7) k/uL D-Dimer (<0.60) mg/L FEU Sodium (137-145) mmol/L BUN (7-17) mg/dL Glucose (74-99) mg/dL POC Glucose (mg/dL) 207 H 163 H (75-99) mg/dL Calcium (8.4-10.2) mg/dL Ferritin (10.0-291.0) ng/mL AST (14-36) U/L ALT (4-34) U/L Alkaline Phosphatase (38-126) U/L Lactate Dehydrogenase (313-618) U/L C-Reactive Protein (<1.0) mg/dL Total Protein (6.3-8.2) g/dL Albumin (3.5-5.0) g/dL 07/01/21 07/01/21 07/01/21 Range/Units 03:53 03:53 06:13 WBC (3.8-10.6) k/uL Hct (34.0-46.0) % Neutrophils # (1.3-7.7) k/uL D-Dimer 5.54 H (<0.60) mg/L FEU Sodium 132 L (137-145) mmol/L BUN 19 H (7-17) mg/dL Glucose 119 H (74-99) mg/dL POC Glucose (mg/dL) 118 H (75-99) mg/dL Calcium 8.1 L (8.4-10.2) mg/dL Ferritin 897.0 H (10.0-291.0) ng/mL AST 39 H (14-36) U/L ALT 39 H (4-34) U/L Alkaline Phosphatase 212 H (38-126) U/L Lactate Dehydrogenase 1769 H (313-618) U/L C-Reactive Protein 3.4 H (<1.0) mg/dL Total Protein 5.5 L (6.3-8.2) g/dL Albumin 2.7 L (3.5-5.0) g/dL 07/01/21 Range/Units 11:17 WBC (3.8-10.6) k/uL Hct (34.0-46.0) % Neutrophils # (1.3-7.7) k/uL D-Dimer (<0.60) mg/L FEU Sodium (137-145) mmol/L BUN (7-17) mg/dL Glucose (74-99) mg/dL POC Glucose (mg/dL) 158 H (75-99) mg/dL Calcium (8.4-10.2) mg/dL Ferritin (10.0-291.0) ng/mL AST (14-36) U/L ALT (4-34) U/L Alkaline Phosphatase (38-126) U/L Lactate Dehydrogenase (313-618) U/L C-Reactive Protein (<1.0) mg/dL Total Protein (6.3-8.2) g/dL Albumin (3.5-5.0) g/dL Microbiology - Last 24 Hours (Table) 06/26/21 19:00 Blood Culture - Preliminary Blood No Growth after 96 hours 06/26/21 19:06 Blood Culture - Preliminary Blood No Growth after 96 hours Assessment and Plan Assessment: Acute hypoxic respiratory failure secondary to COVID-19 pneumonia, unvaccinated. Received 1 dose of remdesivir, however considering her FiO2 requirement, patient is now on baricitinib. Overall the patient is clinically better Elevated inflammatory markers secondary to COVID-19 pneumonia Elevated d-dimer, hence I'm recommending increasing Lovenox to 40 mg twice a day. Recommendation: Continue to monitor the patient in the ICU Continue high flow oxygen and titrate accordingly Continue COVID-19 cocktail. And that includes Lovenox, will increase the dose to 40 mg twice a day. Continue Decadron, vitamin supplements, Continue baricitinib Will continue to follow. Time with Patient: Less than 30
[2021-07-01 17:27] LABS: Glucose,Whole Blood 143 mg/dL (75-99)
[2021-07-01 20:13] LABS: Glucose,Whole Blood 136 mg/dL (75-99)
--- NOTE | 2021-07-01 20:30 | P.PN ---
Subjective Progress Note Date: 07/01/21 Principal diagnosis: Acute hypoxic respiratory failure secondary to COVID-19 pneumonia Elevated inflammatory markers secondary to COVID-19 pneumonia 06/30/2021 patient is seen and evaluated in the ICU, remains on high flow oxygen, unchanged, remains on 60% FiO2 and 60 L flow, O2 saturation is in the low 90s. Surprisingly the patient seems to be very comfortable, not in distress. WBC count 15.3 hemoglobin is 11.1. LDH is 1697 C-reactive protein is 3.5 chest x- ray showed no major change, consistent with COVID-19 pneumonia Continue high flow oxygen and titrate accordingly; Continue COVID-19 cocktail Lovenox, Decadron, vitamin supplements; remains on baricitinib 07/01/2021 Patient was seen and reevaluated today along with discussed with the nursing staff. Patient remains in the ICU. Patient's FiO2 has decreased to 55%, 60 L flow, and oxygen saturation is at 92%. Patient seems to be comfortable, not in any type of acute distress. No repeat chest x ray is done today. Patient is feeling better and is breathing a bit easier compared to yesterday. Patient's LDH is 1769, patient's c reactive protein is 3.4- CRP is minutely less whereas LDH has slightly increased, not a huge or significant change compared to yesterday's markers. WBC count is 16.4 whereas hemoglobin levels is 11.4. D dimer is up to 5.54. Patient's electrolytes are normal. Continue supportive care. Objective - Vital Signs Vital signs: Vital Signs Temp 98.2 F 07/01/21 09:00 Pulse 83 07/01/21 12:00 Resp 25 H 07/01/21 12:00 BP 116/65 07/01/21 12:00 Pulse Ox 88 L 07/01/21 12:00 Intake & Output 06/30/21 07/01/21 07/01/21 18:59 06:59 18:59 Intake Total 1010 550 660 Output Total 1450 1125 225 Balance -440 -575 435 Weight 73.2 kg Intake: IV 650 550 300 Sodium Chloride 0.9% 1, 650 550 300 000 ml @ 50 mls/hr IV . Q20H [facility] Rx#:[id number] Oral 360 360 Output: Urine 1450 1125 225 Other: Voiding Method Bedside Commode Bedside Commode Bedside Commode # Voids 1 # Bowel Movements 1 - Exam Physical Exam: Revealed 65-year-old female in no distress. Remains on airvo as noted earlier. Head: Atraumatic, normocephalic. HEENT:[Neck is supple.] [No neck masses.] [No thyromegaly.] [No JVD.] Dry mucous membranes. Chest: Crackles persist at the bases bilaterally. Symmetrical chest expansion. Cardiac Exam: [Normal S1 and S2, no S3 gallop, no murmur.] Abdomen: [Soft, nontender, no megaly, no rebound, no guarding, normal bowel sounds.] Extremities: [No clubbing, no edema, no cyanosis.] Neurological Exam: [No focal neurologic deficit.] Alert oriented 3. Psychiatric: Normal mood affect and normal mental status examination. - Labs CBC & Chem 7: 07/01/21 03:53 07/01/21 03:53 Labs: Abnormal Lab Results - Last 24 Hours (Table) 06/30/21 06/30/21 07/01/21 Range/Units 17:13 20:42 03:53 WBC 16.4 H (3.8-10.6) k/uL Hct 33.9 L (34.0-46.0) % Neutrophils # 14.0 H (1.3-7.7) k/uL D-Dimer (<0.60) mg/L FEU Sodium (137-145) mmol/L BUN (7-17) mg/dL Glucose (74-99) mg/dL POC Glucose (mg/dL) 207 H 163 H (75-99) mg/dL Calcium (8.4-10.2) mg/dL Ferritin (10.0-291.0) ng/mL AST (14-36) U/L ALT (4-34) U/L Alkaline Phosphatase (38-126) U/L Lactate Dehydrogenase (313-618) U/L C-Reactive Protein (<1.0) mg/dL Total Protein (6.3-8.2) g/dL Albumin (3.5-5.0) g/dL 07/01/21 07/01/21 07/01/21 Range/Units 03:53 03:53 06:13 WBC (3.8-10.6) k/uL Hct (34.0-46.0) % Neutrophils # (1.3-7.7) k/uL D-Dimer 5.54 H (<0.60) mg/L FEU Sodium 132 L (137-145) mmol/L BUN 19 H (7-17) mg/dL Glucose 119 H (74-99) mg/dL POC Glucose (mg/dL) 118 H (75-99) mg/dL Calcium 8.1 L (8.4-10.2) mg/dL Ferritin 897.0 H (10.0-291.0) ng/mL AST 39 H (14-36) U/L ALT 39 H (4-34) U/L Alkaline Phosphatase 212 H (38-126) U/L Lactate Dehydrogenase 1769 H (313-618) U/L C-Reactive Protein 3.4 H (<1.0) mg/dL Total Protein 5.5 L (6.3-8.2) g/dL Albumin 2.7 L (3.5-5.0) g/dL 07/01/21 Range/Units 11:17 WBC (3.8-10.6) k/uL Hct (34.0-46.0) % Neutrophils # (1.3-7.7) k/uL D-Dimer (<0.60) mg/L FEU Sodium (137-145) mmol/L BUN (7-17) mg/dL Glucose (74-99) mg/dL POC Glucose (mg/dL) 158 H (75-99) mg/dL Calcium (8.4-10.2) mg/dL Ferritin (10.0-291.0) ng/mL AST (14-36) U/L ALT (4-34) U/L Alkaline Phosphatase (38-126) U/L Lactate Dehydrogenase (313-618) U/L C-Reactive Protein (<1.0) mg/dL Total Protein (6.3-8.2) g/dL Albumin (3.5-5.0) g/dL Microbiology - Last 24 Hours (Table) 06/26/21 19:00 Blood Culture - Preliminary Blood No Growth after 96 hours 06/26/21 19:06 Blood Culture - Preliminary Blood No Growth after 96 hours Assessment and Plan Assessment: Acute hypoxic respiratory failure secondary to COVID-19 pneumonia, and vaccinated. Received 1 dose of remdesivir, however considering her FiO2 requirement, patient is now on baricitinib. Overall the patient is clinically better, chest x-ray is not much different. Elevated inflammatory markers secondary to COVID-19 pneumonia, but seems to be improving. Recommendation: Continue to monitor the patient in the ICU Continue high flow oxygen and titrate accordingly Continue COVID-19 cocktail. And that includes Lovenox, Decadron, vitamin supplements, Continue baricitinib Will continue to follow.
[2021-07-01] MEDS: ENOXAPARIN 40 MG/0.4 ML SYRINGE SQ SCH (20:37)
--- NOTE | 2021-07-01 23:35 | PN ---
PROGRESS NOTE DATE OF SERVICE: 07/01/2021 REASON FOR FOLLOWUP: COVID-19 pneumonia. INTERVAL HISTORY: The patient is afebrile. The patient is currently breathing comfortably. She is down to 55% FiO2. No chest pain or worsening cough. No vomiting. No abdominal pain or diarrhea. PHYSICAL EXAMINATION: Blood pressure is 126/73 with a pulse of 65, temperature of 98. She is 95% on 55% FiO2. General description is a middle-aged female up in the bed in no distress. RESPIRATORY SYSTEM: Unlabored breathing. Coarse breath sounds at the bases bilaterally. No wheeze. HEART: S1, S2. Regular rate and rhythm. ABDOMEN: Soft. No tenderness. EXTREMITIES: No edema of the feet. LABS: Hemoglobin is 11.4, white count 16.4, BUN of 19, creatinine 0.60. DIAGNOSTIC IMPRESSION AND PLAN: Patient with acute COVID-19 pneumonia. Slow clinical response. Did have some improvement. The patient is currently covered with baricitinib, dexamethasone, Lovenox, zinc and ascorbic acid; to continue and monitor clinical course closely. MMODL / IJN: [id number] /
[2021-07-02 07:01] LABS: Glucose,Whole Blood 118 mg/dL (75-99)
[2021-07-02] MEDS: INSULIN ASPART (NovoLOG) 100 UNIT/ML VIAL SQ SCH ×4 (07:01→19:53)
[2021-07-02] MEDS: ALBUTEROL HFA INHALER INHALATION SCH ×4 (07:21→19:39)
[2021-07-02] MEDS: CHOLECALCIFEROL 25 MCG (1000 IU) TABLET PO SCH (09:59)
[2021-07-02] MEDS: SODIUM CHLORIDE 0.9% 1,000 ML IV SCH (09:59)
[2021-07-02] MEDS: DEXAMETHASONE SOD PHOSPHATE 10 MG/ML 1 ML VIAL IVP SCH ×2 (10:00→19:52)
[2021-07-02] MEDS: ENOXAPARIN 40 MG/0.4 ML SYRINGE SQ SCH ×2 (10:00→19:52)
[2021-07-02] MEDS: ASCORBIC ACID 500 MG TAB PO SCH (10:00)
[2021-07-02] MEDS: PANTOPRAZOLE 40 MG/10 ML VIAL IVP SCH (10:00)
[2021-07-02] MEDS: ZINC SULFATE 220 MG CAP PO SCH (10:00)
[2021-07-02] MEDS: BARICITINIB 2 MG TABLET PO SCH (10:00)
--- NOTE | 2021-07-02 10:52 | P.PN ---
Subjective Progress Note Date: 07/02/21 Principal diagnosis: Acute hypoxic respiratory failure 6 noted to COVID-19 pneumonia On 07/02/2021 patient seen in follow-up in intensive care unit. Patient is awake and alert, in no acute distress, she sits up in the recliner, current Airvo settings are 50 L/m, and FiO2 of 55%, and her pulse ox is 94-97%, she is breathing comfortably, vital signs are stable, she's been afebrile, is receiving 0.9 normal saline at a rate of 50 ML per hour, she has had no acute events overnight. Her last chest x-ray was on 06/30/2021 showing bilateral airspace disease. Last set of labs from yesterday showed white blood cell count of 16.4, hemoglobin of 11.4, d-dimer is 5.54, sodium was 132, serum electrolytes were within normal limits, BUN was 19 creatinine was 0.60, LDH was 1769, improved since admission, CRP was 3.4, also improved since admission. Patient continues on a combination of Decadron 6 mg twice daily, she is on Lovenox 40 mg twice daily, she remains on Baricitinib, and multivitamins. Objective - Vital Signs Vital signs: Vital Signs Temp 97.7 F 07/02/21 08:00 Pulse 60 07/02/21 10:00 Resp 17 07/02/21 10:00 BP 102/59 07/02/21 10:00 Pulse Ox 97 07/02/21 10:00 Intake & Output 07/01/21 07/02/21 07/02/21 18:59 06:59 18:59 Intake Total 1320 600 200 Output Total 1025 825 400 Balance 295 -225 -200 Weight 72.9 kg Intake: IV 600 600 200 Sodium Chloride 0.9% 1, 600 600 200 000 ml @ 50 mls/hr IV . Q20H [facility] Rx#:[id number] Oral 720 Output: Urine 1025 825 400 Other: Voiding Method Bedside Commode Bedside Commode # Voids 1 # Bowel Movements 1 - Exam GENERAL EXAM: Alert, very pleasant, 65-year-old white female, on Airvo at 50 L and FiO2 of 55%, with a pulse ox of 97%, comfortable in no apparent distress. HEAD: Normocephalic/atraumatic. EYES: Normal reaction of pupils, equal size. Conjunctiva pink, sclera white. NOSE: Clear with pink turbinates. THROAT: No erythema or exudates. NECK: No masses, no JVD, no thyroid enlargement, no adenopathy. CHEST: No chest wall deformity. Symmetrical expansion. LUNGS: Equal air entry with bilateral crackles CVS: Regular rate and rhythm, normal S1 and S2, no gallops, no murmurs, no rubs ABDOMEN: Soft, nontender. No hepatosplenomegaly, normal bowel sounds, no guarding or rigidity. EXTREMITIES: No clubbing, no edema, no cyanosis, 2+ pulses and upper and lower extremities. MUSCULOSKELETAL: Muscle strength and tone normal. SPINE: No scoliosis or deformity SKIN: No rashes CENTRAL NERVOUS SYSTEM: Alert and oriented -3. No focal deficits, tone is normal in all 4 extremities. PSYCHIATRIC: Alert and oriented -3. Appropriate affect. Intact judgment and insight. - Labs CBC & Chem 7: 07/01/21 03:53 07/01/21 03:53 Labs: Abnormal Lab Results - Last 24 Hours (Table) 07/01/21 07/01/21 07/01/21 Range/Units 11:17 17:25 20:12 POC Glucose (mg/dL) 158 H 143 H 136 H (75-99) mg/dL 07/02/21 Range/Units 06:58 POC Glucose (mg/dL) 118 H (75-99) mg/dL Microbiology - Last 24 Hours (Table) 06/26/21 19:06 Blood Culture - Preliminary Blood No Growth after 120 hours 06/26/21 19:00 Blood Culture - Preliminary Blood No Growth after 120 hours Assessment and Plan Plan: Assessment: #1. Acute hypoxic respiratory failure secondary to COVID-19 pneumonia. Patient is status post 1 loading dose of Remdesivir 200 mg in the emergency department on 06/27/2021, and patient was started on Baricitinib for severe hypoxic respiratory failure on 06/27/2021. Clinically improving, and FiO2 is currently down to 50 L and FiO2 of 55% per Airvo device. Patient is a non-vaccinated individual #2. Elevated inflammatory markers related to the above #3. Elevated d-dimer, V/Q scan showed very low probability of pulmonary embolism #4. Lifelong nonsmoker Plan: Continue current medical treatment Continue current dose Lovenox, Decadron and Baricitinib Obtain lower extremity Dopplers to rule out possibility of DVT Obtain follow-up labs tomorrow, including CBC, BMP, LDH, CRP, and d-dimer Follow-up chest x-ray tomorrow Continue weaning FiO2 to maintain O2 saturations at or above 90% Increase activity as tolerated We'll continue to closely monitor in the intensive care unit I performed a history & physical examination of the patient and discussed their management with my nurse practitioner, Margie Banerjee. I reviewed the nurse practitioner's note and agree with the documented findings and plan of care. Lung sounds are positive for bibasilar crackles hroughout the lung small. The findings and the impression was discussed with the patient. I attest to the documentation by the nurse practitioner. Time with Patient: Greater than 30
[2021-07-02 11:24] LABS: Glucose,Whole Blood 109 mg/dL (75-99)
--- NOTE | 2021-07-02 16:20 | P.PN ---
Subjective Progress Note Date: 07/02/21 This is a pleasant 65-year-old female with no significant past medical history, nonsmoker, and unvaccinated for COVID. Reports symptoms of fatigue and sore throat and fever, generalized joint pain started a week ago after traveling to [place], [place]. Upon returning home both she and her tested positive for COVID-19 on 06/21/21. Both presented to the ER with complaints of worsening hypoxia. Her received monoclonal antibodies and discharged home. On admission patient's O2 sat on room air 64%, temperature 101.4, respiratory rate 24, blood pressure/heart rate stable. Normal WBC, hemoglobin 12.6, platelets 274, d-dimer 1.35 now down to 0.99, ferritin 2575, LDH 2311, down to 2239 , CRP 34 -currently 31.9, coronavirus detected, sodium 135. Potassium 3.1, received supplementation currently up to 3.8, BUN 30, creatinine 1.43 currently 27, 0.87, blood sugars stable, T bili 0.9, AST 133, ALT 65, alk phos 461 Chest x-ray reported new bilateral extensive pneumonia. EKG is normal sinus rhythm. VQ scan reporting very low probability of PE. Received a dose of Remdesevir in the ER, now on Baricitinib. 06/28/2021 maintained on airvo 60 L flow/70% FiO2, maintaining O2 sats of 89- 93%. States she feels better. Chest x-ray with no significant change,reporting bilateral multifocal and confluent opacity consistent with COVID-19 redemonstrated. Continues on cold a cocktail including baricitinib. Afebrile, WBC 11.7. Preliminary blood cultures reporting no growth at 24 hours Hemoglobin 11.3, platelets 333. D-dimer 1.07, LDH improving, 2005, CRP down to 13.9. Sodium 133,Potassium 3.8, BUN 37, creatinine 0.66. Blood sugars controlled. 06/29/2021 continues on Covid cocktail including baricitinib. D-dimer up to 1.34, LDH and CRP improving.Remains on airvo 60L flow/ 60% FiO2, O2 sats 85%. Chest x-ray reporting continued diffuse bilateral Covid pneumonia with co nsolidation worsening on the left. Hemoglobin 9.3, platelets 391.T-max 99.2, WBC 13.8. Pulmonary blood cultures no growth at 48 hours. Renal function stable. Denies chest pressure, palpitations. Consuming 75%, blood sugars controlled. 07/02/2021 currently maintained on antiviral Airvo 50L, FiO2 55%, sitting up in chair, maintaining O2 sats of 94-97%.maintained on Colace cocktail including B aricitinib.diet intake improving. Denies nausea vomiting or diarrhea. Denies chest pain, palpitations.labs from 07/01 noted. Objective - Vital Signs Vital signs: Vital Signs Temp 98.3 F 07/02/21 12:00 Pulse 58 L 07/02/21 15:00 Resp 23 07/02/21 15:00 BP 93/56 07/02/21 15:00 Pulse Ox 93 L 07/02/21 15:00 Intake & Output 07/01/21 07/02/21 07/02/21 18:59 06:59 18:59 Intake Total 1320 600 450 Output Total 1025 825 700 Balance 295 -225 -250 Weight 72.9 kg Intake: IV 600 600 450 Sodium Chloride 0.9% 1, 600 600 450 000 ml @ 50 mls/hr IV . Q20H [facility] Rx#:[id number] Oral 720 Output: Urine 1025 825 700 Other: Voiding Method Bedside Commode Bedside Commode Bedside Commode # Voids 1 1 # Bowel Movements 1 - Exam PHYSICAL EXAM: VITAL SIGNS: [As above] GENERAL: Sitting up in chair, wearing airvo HEENT: Conjunctivae normal. eyes normal. Oral mucosa dry. NECK: Supple, No JVD. CARDIOVASCULAR: S1, S2 regular.No murmur RESPIRATION: Breath sounds diminished in the bases.Bibasilar crackles. ABDOMEN: Soft, nontender . No guarding. no masses palpable. Positive bowel sounds. LEGS: No edema. no swelling. PSYCHIATRY: Alert and oriented X3, mood and affect normal. NERVOUS SYSTEM: Cranial N 2-12 grossly normal. Moves all 4 limbs. No focal deficits. Strength and sensation grossly intact. Skin: Warm and dry, no rash Microbiology 06/26/21 19:06 Blood Blood Culture - Preliminary No Growth after 120 hours 06/26/21 19:00 Blood Blood Culture - Preliminary No Growth after 120 hours - Labs CBC & Chem 7: 07/01/21 03:53 07/01/21 03:53 Labs: Abnormal Lab Results - Last 24 Hours (Table) 07/01/21 07/01/21 07/02/21 Range/Units 17:25 20:12 06:58 POC Glucose (mg/dL) 143 H 136 H 118 H (75-99) mg/dL 07/02/21 Range/Units 11:22 POC Glucose (mg/dL) 109 H (75-99) mg/dL Microbiology - Last 24 Hours (Table) 06/26/21 19:06 Blood Culture - Preliminary Blood No Growth after 120 hours 06/26/21 19:00 Blood Culture - Preliminary Blood No Growth after 120 hours Assessment and Plan Assessment: Acute COVID-19 pneumonia, bilateral, symptoms 1 week,improving Severe sepsis with organ dysfunction secondary to the above Acute hypoxic respiratory failure secondary to all the above Acute renal failure, resolved with IV fluid hydration Elevated LFTs Elevated inflammatory markers secondary to covid Mild hyponatremia, resolved Plan: Continue on current medication regime ,monitoring and symptomatic treatment. Maintain Covid cocktail. Yesterday d-dimer increased to 5.54, Lovenox increased to twice a day,prior VQ scan reported very low probability of PE, Dopplers pending. The impression and plan of care has been dictated as directed. : I performed a history and examination of this patient, discussed the same with the dictator. I agree with the dictator's note ,documented as a scribe. Any additional findings or plans will be noted.
--- NOTE | 2021-07-02 16:36 | US ---
EXAMINATION TYPE: US venous doppler duplex LE BI DATE OF EXAM: 07/02/2021 1:41 PM COMPARISON: NONE CLINICAL HISTORY: 65-year-old female elevated d-dimer. Covid ICU patient. Elevated D-Dimer. No redne ss or swelling. SIDE PERFORMED: Bilateral TECHNIQUE: The lower extremity deep venous system is examined utilizing real time linear array sonog alma with graded compression, doppler sonography and color-flow sonography. FINDINGS: VESSELS IMAGED: Common Femoral Vein Deep Femoral Vein Greater Saphenous Vein * Femoral Vein Popliteal Vein Small Saphenous Vein * Proximal Calf Veins (* superficial vessels) Right Leg: Negative for DVT Left Leg: Negative for DVT IMPRESSION: No evidence for DVT within the bilateral lower extremities imaged from the groin to the upper calf.
[2021-07-02 16:59] LABS: Glucose,Whole Blood 143 mg/dL (75-99)
--- NOTE | 2021-07-02 18:28 | PN ---
PROGRESS NOTE DATE OF SERVICE: 07/02/2021 REASON FOR FOLLOWUP: COVID-19 pneumonia. INTERVAL HISTORY: The patient is afebrile. The patient is breathing more comfortably. FiO2 is cut down to 45%. Denies any chest pain. No worsening cough. No nausea, no vomiting. No abdominal pain or diarrhea. PHYSICAL EXAMINATION: Blood pressure 104/70 with a pulse of 54, temperature 98. She is 91% on 45% FiO2. General description is a middle-aged female up in the chair in no distress. RESPIRATORY SYSTEM: Unlabored breathing. Decreased intensity of breath sounds. No wheeze. HEART: S1, S2. Regular rate and rhythm. ABDOMEN: Soft. No tenderness. LABS: No new labs have been obtained today. DIAGNOSTIC IMPRESSION AND PLAN: Patient with acute COVID-19 pneumonia in this patient who has shown slow clinical improvement. Patient to continue the baricitinib, Lovenox, dexamethasone, zinc and ascorbic acid along with respiratory support, and monitor her clinical course closely. MMODL / IJN: [id number] /
[2021-07-02 19:41] LABS: Glucose,Whole Blood 229 mg/dL (75-99)
[2021-07-03 05:53] LABS: Basophils % (A) 0 %; Eosinophils % (A) 0 %; HCT 34.2 % (34.0-46.0); HGB 11.4 gm/dL (11.4-16.0); Lymphocytes # (A) 1.2 k/uL (1.0-4.8); Lymphocytes % (A) 9 %; MCH 30.1 pg (25.0-35.0); MCHC 33.2 g/dL (31.0-37.0); MCV 90.6 fL (80.0-100.0); Mean Platelet Volume 9.6; Monocytes # (A) 0.5 k/uL (0-1.0); Monocytes % (A) 3 %; Neutrophils # (A) 12.3 k/uL (1.3-7.7); Neutrophils % (A) 87 %; Platelet Count 411 k/uL (150-450); RBC 3.78 m/uL (3.80-5.40); RDW 12.9 % (11.5-15.5); WBC 14.2 k/uL (3.8-10.6)
[2021-07-03 06:16] LABS: African American GFR (CKD) >90 (>60 ml/min/1.73 sqM); Anion Gap 5 mmol/L; Blood Urea Nitrogen 26 mg/dL (7-17); C Reactive Protein 3.4 mg/dL (<1.0); Calcium 8.1 mg/dL (8.4-10.2); Carbon Dioxide 26 mmol/L (22-30); Chloride 100 mmol/L (98-107); Glucose 117 mg/dL (74-99); LDH 1474 U/L (313-618); Non-African American GFR(CKD) >90 (>60 ml/min/1.73 sqM); Potassium 4.6 mmol/L (3.5-5.1); Sodium 131 mmol/L (137-145)
[2021-07-03 06:28] LABS: Glucose,Whole Blood 107 mg/dL (75-99)
[2021-07-03] MEDS: INSULIN ASPART (NovoLOG) 100 UNIT/ML VIAL SQ SCH ×4 (06:36→21:01)
[2021-07-03] MEDS: ALBUTEROL HFA INHALER INHALATION SCH ×4 (07:28→21:03)
--- NOTE | 2021-07-03 08:03 | XR ---
EXAMINATION TYPE: XR chest 1V portable DATE OF EXAM: 07/03/2021 CLINICAL HISTORY: Difficulty breathing and covid progress study. TECHNIQUE: Single AP portable upright view of the chest is obtained. COMPARISON: Chest x-ray from 3 days earlier FINDINGS: Bilateral multifocal and confluent reticular and reticulonodular opacities remain present. Some improved aeration in the left lung base but more prominent findings in the right midlung periph lucina. Cardiac silhouette size stable and within normal limits. Osseous structures are intact. IMPRESSION: Persistent bilateral multifocal and confluent opacities consistent with covid-19 infectio n. Areas of improvement and worsening noted from most recent x-ray.
[2021-07-03] MEDS: ENOXAPARIN 40 MG/0.4 ML SYRINGE SQ SCH (09:59)
[2021-07-03] MEDS: CHOLECALCIFEROL 25 MCG (1000 IU) TABLET PO SCH (09:59)
[2021-07-03] MEDS: ZINC SULFATE 220 MG CAP PO SCH (09:59)
[2021-07-03] MEDS: PANTOPRAZOLE 40 MG/10 ML VIAL IVP SCH (09:59)
[2021-07-03] MEDS: ASCORBIC ACID 500 MG TAB PO SCH (09:59)
[2021-07-03] MEDS: BARICITINIB 2 MG TABLET PO SCH (09:59)
[2021-07-03] MEDS: DEXAMETHASONE SOD PHOSPHATE 10 MG/ML 1 ML VIAL IVP SCH ×2 (09:59→21:00)
--- NOTE | 2021-07-03 10:36 | P.PN ---
Subjective Progress Note Date: 07/03/21 Principal diagnosis: Acute hypoxic respiratory failure 6 noted to COVID-19 pneumonia On 07/02/2021 patient seen in follow-up in intensive care unit. Patient is awake and alert, in no acute distress, she sits up in the recliner, current Airvo settings are 50 L/m, and FiO2 of 55%, and her pulse ox is 94-97%, she is breathing comfortably, vital signs are stable, she's been afebrile, is receiving 0.9 normal saline at a rate of 50 ML per hour, she has had no acute events overnight. Her last chest x-ray was on 06/30/2021 showing bilateral airspace disease. Last set of labs from yesterday showed white blood cell count of 16.4, hemoglobin of 11.4, d-dimer is 5.54, sodium was 132, serum electrolytes were within normal limits, BUN was 19 creatinine was 0.60, LDH was 1769, improved since admission, CRP was 3.4, also improved since admission. Patient continues on a combination of Decadron 6 mg twice daily, she is on Lovenox 40 mg twice daily, she remains on Baricitinib, and multivitamins. On today's evaluation 07/03/2021 patient seen in follow-up in the intensive care unit, she is on Airvo with 45 L/m and FiO2 of 45%, and her pulse ox is 95%, hemodynamically she is stable, she is in sinus mechanism, she is afebrile. Today's chest x-ray showing persistent bilateral multifocal and confluent opacities consistent with COVID-19 infection, areas of improvement and worsening noted for most recent chest x-ray. Today's labs have been reviewed, blood cell count is improving and is down to 14.2, hemoglobin is 11.4, d-dimer is trending down and is down to 2.9, sodium is 131, the rest of the electrolytes are within normal limits, BUN is 26, creatinine 0.54. LDH is improving and is down to 1474, and CRP is 3.4. Patient is tolerating oral diet, she has been get not to the commode, tolerating activity fairly well although she does get dyspneic with exertion. Objective - Vital Signs Vital signs: Vital Signs Temp 98.4 F 07/03/21 04:00 Pulse 54 L 07/03/21 06:00 Resp 16 07/03/21 06:00 BP 119/67 07/03/21 06:00 Pulse Ox 95 07/03/21 07:29 Intake & Output 07/02/21 07/03/21 07/03/21 18:59 06:59 18:59 Intake Total 650 600 Output Total 900 850 Balance -250 -250 Weight 74.616 kg Intake: IV 650 600 Sodium Chloride 0.9% 1, 650 600 000 ml @ 50 mls/hr IV . Q20H [facility] Rx#:[id number] Output: Urine 900 850 Other: Voiding Method Bedside Commode Bedside Commode # Voids 1 1 - Exam GENERAL EXAM: Alert, very pleasant, 65-year-old white female, on Airvo at 45 L and FiO2 of 45%, with a pulse ox of 97%, comfortable in no apparent distress. HEAD: Normocephalic/atraumatic. EYES: Normal reaction of pupils, equal size. Conjunctiva pink, sclera white. NOSE: Clear with pink turbinates. THROAT: No erythema or exudates. NECK: No masses, no JVD, no thyroid enlargement, no adenopathy. CHEST: No chest wall deformity. Symmetrical expansion. LUNGS: Equal air entry with bilateral crackles CVS: Regular rate and rhythm, normal S1 and S2, no gallops, no murmurs, no rubs ABDOMEN: Soft, nontender. No hepatosplenomegaly, normal bowel sounds, no guarding or rigidity. EXTREMITIES: No clubbing, no edema, no cyanosis, 2+ pulses and upper and lower extremities. MUSCULOSKELETAL: Muscle strength and tone normal. SPINE: No scoliosis or deformity SKIN: No rashes CENTRAL NERVOUS SYSTEM: Alert and oriented -3. No focal deficits, tone is normal in all 4 extremities. PSYCHIATRIC: Alert and oriented -3. Appropriate affect. Intact judgment and insight. - Labs CBC & Chem 7: 07/03/21 04:55 07/03/21 04:55 Labs: Abnormal Lab Results - Last 24 Hours (Table) 07/02/21 07/02/21 07/02/21 Range/Units 11:22 16:58 19:40 WBC (3.8-10.6) k/uL RBC (3.80-5.40) m/uL Neutrophils # (1.3-7.7) k/uL D-Dimer (<0.60) mg/L FEU Sodium (137-145) mmol/L BUN (7-17) mg/dL Glucose (74-99) mg/dL POC Glucose (mg/dL) 109 H 143 H 229 H (75-99) mg/dL Calcium (8.4-10.2) mg/dL Lactate Dehydrogenase (313-618) U/L C-Reactive Protein (<1.0) mg/dL 07/03/21 07/03/21 07/03/21 Range/Units 04:55 04:55 04:55 WBC 14.2 H (3.8-10.6) k/uL RBC 3.78 L (3.80-5.40) m/uL Neutrophils # 12.3 H (1.3-7.7) k/uL D-Dimer 2.90 H (<0.60) mg/L FEU Sodium 131 L (137-145) mmol/L BUN 26 H (7-17) mg/dL Glucose 117 H (74-99) mg/dL POC Glucose (mg/dL) (75-99) mg/dL Calcium 8.1 L (8.4-10.2) mg/dL Lactate Dehydrogenase 1474 H (313-618) U/L C-Reactive Protein 3.4 H (<1.0) mg/dL 07/03/21 Range/Units 06:28 WBC (3.8-10.6) k/uL RBC (3.80-5.40) m/uL Neutrophils # (1.3-7.7) k/uL D-Dimer (<0.60) mg/L FEU Sodium (137-145) mmol/L BUN (7-17) mg/dL Glucose (74-99) mg/dL POC Glucose (mg/dL) 107 H (75-99) mg/dL Calcium (8.4-10.2) mg/dL Lactate Dehydrogenase (313-618) U/L C-Reactive Protein (<1.0) mg/dL Microbiology - Last 24 Hours (Table) 06/26/21 19:00 Blood Culture - Final Blood No Growth after 144 hours 06/26/21 19:06 Blood Culture - Final Blood No Growth after 144 hours Assessment and Plan Plan: Assessment: #1. Acute hypoxic respiratory failure secondary to COVID-19 pneumonia. Patient is status post 1 loading dose of Remdesivir 200 mg in the emergency department on 06/27/2021, and patient was started on Baricitinib for severe hypoxic respiratory failure on 06/27/2021. Clinically improving, and FiO2 is currently down to 45 L and FiO2 of 45% per Airvo device. Patient is a non-vaccinated individual #2. Elevated inflammatory markers related to the above, improving #3. Elevated d-dimer, V/Q scan showed very low probability of pulmonary embolism, lower extremity Dopplers were negative for DVT #4. Lifelong nonsmoker Plan: Continue current medical treatment Continue current Decadron and Baricitinib lower extremity Dopplers were negative for DVT Cut back to Lovenox to 40 mg daily Continue weaning FiO2 to maintain O2 saturations at or above 90% Increase activity as tolerated We'll continue to closely monitor in the intensive care unit I performed a history & physical examination of the patient and discussed their management with my nurse practitioner, Margie Banerjee. I reviewed the nurse practitioner's note and agree with the documented findings and plan of care. Lung sounds are positive for bibasilar crackles hroughout the lung small. The findings and the impression was discussed with the patient. I attest to the documentation by the nurse practitioner. Time with Patient: Less than 30
[2021-07-03] MEDS: SODIUM CHLORIDE 0.9% 1,000 ML IV SCH (10:46)
[2021-07-03 11:11] LABS: Glucose,Whole Blood 89 mg/dL (75-99)
--- NOTE | 2021-07-03 14:10 | PN ---
PROGRESS NOTE DATE OF SERVICE: 07/03/2021 REASON FOR FOLLOWUP: COVID-19 pneumonia. INTERVAL HISTORY: Patient is afebrile. The patient is breathing comfortably. The patient denies having any chest pain. No worsening cough or sputum production. No abdominal pain. No diarrhea. PHYSICAL EXAMINATION: Blood pressure 119/67, pulse of 54, temperature 98.4. She is 95% on 45% FiO2. General description is a middle-aged female up in the chair in no distress. Respiratory system: Unlabored breathing, decreased intensity of breath sounds. No wheeze. Heart S1, S2. Regular rate and rhythm. Abdomen soft, no tenderness. LAB: Hemoglobin 11.1, white count 14.2, creatinine 0.54. DIAGNOSTIC IMPRESSION AND PLAN: Patient with acute COVID-19 pneumonia with respiratory failure. Patient has shown significant clinical improvement. The patient is currently , dexamethasone, Lovenox, zinc and ascorbic acid along with respiratory support and monitor clinical course closely. MMODL / IJN: [id number] /
[2021-07-03 14:24] VITALS: BMI 27.3
--- NOTE | 2021-07-03 16:16 | P.PN ---
Subjective Progress Note Date: 07/03/21 This is a pleasant 65-year-old female with no significant past medical history, nonsmoker, and unvaccinated for COVID. Reports symptoms of fatigue and sore throat and fever, generalized joint pain started a week ago after traveling to [place], [place]. Upon returning home both she and her tested positive for COVID-19 on 06/21/21. Both presented to the ER with complaints of worsening hypoxia. Her received monoclonal antibodies and discharged home. On admission patient's O2 sat on room air 64%, temperature 101.4, respiratory rate 24, blood pressure/heart rate stable. Normal WBC, hemoglobin 12.6, platelets 274, d-dimer 1.35 now down to 0.99, ferritin 2575, LDH 2311, down to 2239 , CRP 34 -currently 31.9, coronavirus detected, sodium 135. Potassium 3.1, received supplementation currently up to 3.8, BUN 30, creatinine 1.43 currently 27, 0.87, blood sugars stable, T bili 0.9, AST 133, ALT 65, alk phos 461 Chest x-ray reported new bilateral extensive pneumonia. EKG is normal sinus rhythm. VQ scan reporting very low probability of PE. Received a dose of Remdesevir in the ER, now on Baricitinib. 06/28/2021 maintained on airvo 60 L flow/70% FiO2, maintaining O2 sats of 89- 93%. States she feels better. Chest x-ray with no significant change,reporting bilateral multifocal and confluent opacity consistent with COVID-19 redemonstrated. Continues on cold a cocktail including baricitinib. Afebrile, WBC 11.7. Preliminary blood cultures reporting no growth at 24 hours Hemoglobin 11.3, platelets 333. D-dimer 1.07, LDH improving, 2005, CRP down to 13.9. Sodium 133,Potassium 3.8, BUN 37, creatinine 0.66. Blood sugars controlled. 06/29/2021 continues on Covid cocktail including baricitinib. D-dimer up to 1.34, LDH and CRP improving.Remains on airvo 60L flow/ 60% FiO2, O2 sats 85%. Chest x-ray reporting continued diffuse bilateral Covid pneumonia with co nsolidation worsening on the left. Hemoglobin 9.3, platelets 391.T-max 99.2, WBC 13.8. Pulmonary blood cultures no growth at 48 hours. Renal function stable. Denies chest pressure, palpitations. Consuming 75%, blood sugars controlled. 07/02/2021 currently maintained on antiviral Airvo 50L, FiO2 55%, sitting up in chair, maintaining O2 sats of 94-97%.maintained on Colace cocktail including B aricitinib.diet intake improving. Denies nausea vomiting or diarrhea. Denies chest pain, palpitations.labs from 07/01 noted. 07/03/2021 continues on airvo with FiO2 decreased to 45%, maintaining O2 sats ranging 93-95%. Chest x-ray reporting persistent bilateral multifocal and confluent opacities, some improved aeration in the left lung base but more prominent findings in the right midlung periphery. Denies any chest pain, palpitations. Exertional shortness of breath. Nonproductive cough-occasional. Afebrile, WBC decreased to 14.2, hemoglobin 11.4, platelets 411. D-dimer 2.9, sodium 131. renal function stable. Blood sugars stable. LDH decreased to 1474, CRP remains at 3.4. Bilateral lower extremity Dopplers reported negative for DVT. Objective - Vital Signs Vital signs: Vital Signs Temp 97.9 F 07/03/21 12:00 Pulse 62 07/03/21 15:00 Resp 20 07/03/21 15:00 BP 103/61 07/03/21 15:00 Pulse Ox 94 L 07/03/21 15:00 Intake & Output 07/02/21 07/03/21 07/03/21 18:59 06:59 18:59 Intake Total 650 600 400 Output Total 900 850 300 Balance -250 -250 100 Weight 74.616 kg 74.616 kg Intake: IV 650 600 400 Sodium Chloride 0.9% 1, 650 600 400 000 ml @ 50 mls/hr IV . Q20H [facility] Rx#:[id number] Output: Urine 900 850 300 Other: Voiding Method Bedside Commode Bedside Commode Bedside Commode # Voids 1 1 1 - Exam PHYSICAL EXAM: VITAL SIGNS: [As above] GENERAL: Sitting up in chair, wearing airvo HEENT: Conjunctivae normal. eyes normal. Oral mucosa dry. NECK: Supple, No JVD. CARDIOVASCULAR: S1, S2 regular.No murmur RESPIRATION: Equal air entry with bilateral bases diminished.Bibasilar crackles. ABDOMEN: Soft, nontender . No guarding. no masses palpable. Positive bowel sounds. LEGS: No edema. no swelling. PSYCHIATRY: Alert and oriented X3, mood and affect normal. NERVOUS SYSTEM: Cranial N 2-12 grossly normal. Moves all 4 limbs. No focal deficits. Strength and sensation grossly intact. Skin: Warm and dry, no rash - Labs CBC & Chem 7: 07/03/21 04:55 07/03/21 04:55 Labs: Abnormal Lab Results - Last 24 Hours (Table) 07/02/21 07/02/21 07/03/21 Range/Units 16:58 19:40 04:55 WBC 14.2 H (3.8-10.6) k/uL RBC 3.78 L (3.80-5.40) m/uL Neutrophils # 12.3 H (1.3-7.7) k/uL D-Dimer (<0.60) mg/L FEU Sodium (137-145) mmol/L BUN (7-17) mg/dL Glucose (74-99) mg/dL POC Glucose (mg/dL) 143 H 229 H (75-99) mg/dL Calcium (8.4-10.2) mg/dL Lactate Dehydrogenase (313-618) U/L C-Reactive Protein (<1.0) mg/dL 07/03/21 07/03/21 07/03/21 Range/Units 04:55 04:55 06:28 WBC (3.8-10.6) k/uL RBC (3.80-5.40) m/uL Neutrophils # (1.3-7.7) k/uL D-Dimer 2.90 H (<0.60) mg/L FEU Sodium 131 L (137-145) mmol/L BUN 26 H (7-17) mg/dL Glucose 117 H (74-99) mg/dL POC Glucose (mg/dL) 107 H (75-99) mg/dL Calcium 8.1 L (8.4-10.2) mg/dL Lactate Dehydrogenase 1474 H (313-618) U/L C-Reactive Protein 3.4 H (<1.0) mg/dL Microbiology - Last 24 Hours (Table) 06/26/21 19:00 Blood Culture - Final Blood No Growth after 144 hours 06/26/21 19:06 Blood Culture - Final Blood No Growth after 144 hours Assessment and Plan Assessment: Acute COVID-19 pneumonia, bilateral, symptoms 1 week,improving Severe sepsis with organ dysfunction secondary to the above Acute hypoxic respiratory failure secondary to all the above Acute renal failure, resolved with IV fluid hydration Elevated LFTs Elevated inflammatory markers secondary to covid Mild hyponatremia, resolved Plan: Continue on current medication regime ,monitoring and symptomatic treatment. Maintain Covid cocktail,Baricitinib. Weaning of FiO2 in progress. Increase Activity As Tolerated. The impression and plan of care has been dictated as directed. : I performed a history and examination of this patient, discussed the same with the dictator. I agree with the dictator's note ,documented as a scribe. Any additional findings or plans will be noted.
[2021-07-03 17:06] LABS: Glucose,Whole Blood 170 mg/dL (75-99)
[2021-07-03 20:39] LABS: Glucose,Whole Blood 131 mg/dL (75-99)
[2021-07-04 05:18] LABS: Basophils % (A) 0 %; Eosinophils % (A) 0 %; HCT 34.6 % (34.0-46.0); HGB 11.6 gm/dL (11.4-16.0); Lymphocytes # (A) 0.9 k/uL (1.0-4.8); Lymphocytes % (A) 7 %; MCH 29.3 pg (25.0-35.0); MCHC 33.5 g/dL (31.0-37.0); MCV 87.4 fL (80.0-100.0); Mean Platelet Volume 9.5; Monocytes # (A) 0.4 k/uL (0-1.0); Monocytes % (A) 3 %; Neutrophils # (A) 11.8 k/uL (1.3-7.7); Neutrophils % (A) 89 %; Platelet Count 489 k/uL (150-450); RBC 3.96 m/uL (3.80-5.40); RDW 13.4 % (11.5-15.5); WBC 13.2 k/uL (3.8-10.6)
[2021-07-04 05:34] LABS: African American GFR (CKD) >90 (>60 ml/min/1.73 sqM); Anion Gap 6 mmol/L; Blood Urea Nitrogen 25 mg/dL (7-17); Calcium 8.8 mg/dL (8.4-10.2); Carbon Dioxide 22 mmol/L (22-30); Chloride 101 mmol/L (98-107); Glucose 136 mg/dL (74-99); LDH 1560 U/L (313-618); Non-African American GFR(CKD) >90 (>60 ml/min/1.73 sqM); Sodium 129 mmol/L (137-145)
[2021-07-04 06:08] LABS: Glucose,Whole Blood 121 mg/dL (75-99)
[2021-07-04] MEDS: SODIUM CHLORIDE 0.9% 1,000 ML IV SCH ×2 (06:28→23:15)
[2021-07-04] MEDS: INSULIN ASPART (NovoLOG) 100 UNIT/ML VIAL SQ SCH ×4 (07:04→23:15)
--- NOTE | 2021-07-04 08:10 | XR ---
EXAMINATION TYPE: XR chest 1V portable DATE OF EXAM: 07/04/2021 COMPARISON: 07/03/2021 INDICATION: Covid TECHNIQUE: Frontal and lateral views of the chest are obtained. FINDINGS: The heart size is normal. The pulmonary vasculature is indistinct. Patchy peripheral mid and upper lung field infiltrates are present can be compatible with atypical pn eumonia. IMPRESSION: 1. Worsening bilateral lung infiltrates
[2021-07-04] MEDS: ALBUTEROL HFA INHALER INHALATION SCH ×4 (08:31→21:16)
[2021-07-04] MEDS: DEXAMETHASONE SOD PHOSPHATE 10 MG/ML 1 ML VIAL IVP SCH ×2 (08:38→20:52)
[2021-07-04] MEDS: BARICITINIB 2 MG TABLET PO SCH (08:38)
[2021-07-04] MEDS: PANTOPRAZOLE 40 MG/10 ML VIAL IVP SCH (08:39)
[2021-07-04] MEDS: CHOLECALCIFEROL 25 MCG (1000 IU) TABLET PO SCH (08:40)
[2021-07-04] MEDS: ENOXAPARIN 40 MG/0.4 ML SYRINGE SQ SCH (08:40)
[2021-07-04] MEDS: ZINC SULFATE 220 MG CAP PO SCH (08:40)
[2021-07-04] MEDS: ASCORBIC ACID 500 MG TAB PO SCH (08:41)
--- NOTE | 2021-07-04 09:48 | P.PN ---
Subjective Progress Note Date: 07/04/21 Principal diagnosis: Acute hypoxic respiratory failure 6 noted to COVID-19 pneumonia On 07/02/2021 patient seen in follow-up in intensive care unit. Patient is awake and alert, in no acute distress, she sits up in the recliner, current Airvo settings are 50 L/m, and FiO2 of 55%, and her pulse ox is 94-97%, she is breathing comfortably, vital signs are stable, she's been afebrile, is receiving 0.9 normal saline at a rate of 50 ML per hour, she has had no acute events overnight. Her last chest x-ray was on 06/30/2021 showing bilateral airspace disease. Last set of labs from yesterday showed white blood cell count of 16.4, hemoglobin of 11.4, d-dimer is 5.54, sodium was 132, serum electrolytes were within normal limits, BUN was 19 creatinine was 0.60, LDH was 1769, improved since admission, CRP was 3.4, also improved since admission. Patient continues on a combination of Decadron 6 mg twice daily, she is on Lovenox 40 mg twice daily, she remains on Baricitinib, and multivitamins. On today's evaluation 07/03/2021 patient seen in follow-up in the intensive care unit, she is on Airvo with 45 L/m and FiO2 of 45%, and her pulse ox is 95%, hemodynamically she is stable, she is in sinus mechanism, she is afebrile. Today's chest x-ray showing persistent bilateral multifocal and confluent opacities consistent with COVID-19 infection, areas of improvement and worsening noted for most recent chest x-ray. Today's labs have been reviewed, blood cell count is improving and is down to 14.2, hemoglobin is 11.4, d-dimer is trending down and is down to 2.9, sodium is 131, the rest of the electrolytes are within normal limits, BUN is 26, creatinine 0.54. LDH is improving and is down to 1474, and CRP is 3.4. Patient is tolerating oral diet, she has been get not to the commode, tolerating activity fairly well although she does get dyspneic with exertion. On today's evaluation on 07/04/2021 patient seen in follow-up in the intensive care unit, she has been switched over to a regular high flow nasal cannula, she is currently on 10 L, her pulse ox is 89-92%, she is breathing comfortably at rest, does get exertional dyspnea, but no acute distress. No fever or chills, hemodynamically stable, no acute events overnight, overall she is improving. She is sitting up in the chair, ambulating to the bathroom, tolerated activity fairly well. Today's chest x-ray was felt to be worsening with bilateral lung infiltrates. Clinically patient has remained stable. She remains on Baricitinib, Decadron 6 mg twice daily, Lovenox 40 mg once daily. VQ scan was low probability of pulmonary embolism, and lower extremity Dopplers were negative for DVT. Today's labs have been reviewed, white blood cell count is 13.2, hemoglobin is 11.6, today's d-dimer is 2.43, serum sodium is low at 129, 5.0, chloride is 101, CO2 is 22, BUN is 25, creatinine 0.57. LDH is 1560, relatively stable in last couple of days, and CRP is improving and is down to 2.0. Appetite has been marginal. Patient is not on any maintenance IV fluids. Objective - Vital Signs Vital signs: Vital Signs Temp 98.1 F 07/04/21 04:00 Pulse 81 07/04/21 07:00 Resp 24 07/04/21 07:00 BP 120/71 07/04/21 07:00 Pulse Ox 89 L 07/04/21 07:00 Intake & Output 07/03/21 07/04/21 07/04/21 18:59 06:59 18:59 Intake Total 550 600 50 Output Total 750 1400 450 Balance -200 -800 -400 Weight 74.616 kg Intake: IV 550 600 50 Sodium Chloride 0.9% 1, 550 600 50 000 ml @ 50 mls/hr IV . Q20H [facility] Rx#:[id number] Output: Urine 750 1400 450 Other: Voiding Method Bedside Commode Bedside Commode # Voids 1 1 1 - Exam GENERAL EXAM: Alert, very pleasant, 65-year-old white female, on 10 l/min high flow with a pulse ox of 91%, comfortable in no apparent distress. HEAD: Normocephalic/atraumatic. EYES: Normal reaction of pupils, equal size. Conjunctiva pink, sclera white. NOSE: Clear with pink turbinates. THROAT: No erythema or exudates. NECK: No masses, no JVD, no thyroid enlargement, no adenopathy. CHEST: No chest wall deformity. Symmetrical expansion. LUNGS: Equal air entry with bilateral crackles CVS: Regular rate and rhythm, normal S1 and S2, no gallops, no murmurs, no rubs ABDOMEN: Soft, nontender. No hepatosplenomegaly, normal bowel sounds, no guarding or rigidity. EXTREMITIES: No clubbing, no edema, no cyanosis, 2+ pulses and upper and lower extremities. MUSCULOSKELETAL: Muscle strength and tone normal. SPINE: No scoliosis or deformity SKIN: No rashes CENTRAL NERVOUS SYSTEM: Alert and oriented -3. No focal deficits, tone is normal in all 4 extremities. PSYCHIATRIC: Alert and oriented -3. Appropriate affect. Intact judgment and insight. - Labs CBC & Chem 7: 07/04/21 04:48 07/04/21 04:48 Labs: Abnormal Lab Results - Last 24 Hours (Table) 07/03/21 07/03/21 07/04/21 Range/Units 17:04 20:37 04:48 WBC 13.2 H (3.8-10.6) k/uL Plt Count 489 H (150-450) k/uL Neutrophils # 11.8 H (1.3-7.7) k/uL Lymphocytes # 0.9 L (1.0-4.8) k/uL D-Dimer (<0.60) mg/L FEU Sodium (137-145) mmol/L BUN (7-17) mg/dL Glucose (74-99) mg/dL POC Glucose (mg/dL) 170 H 131 H (75-99) mg/dL Lactate Dehydrogenase (313-618) U/L C-Reactive Protein (<1.0) mg/dL 07/04/21 07/04/21 07/04/21 Range/Units 04:48 04:48 06:05 WBC (3.8-10.6) k/uL Plt Count (150-450) k/uL Neutrophils # (1.3-7.7) k/uL Lymphocytes # (1.0-4.8) k/uL D-Dimer 2.43 H (<0.60) mg/L FEU Sodium 129 L (137-145) mmol/L BUN 25 H (7-17) mg/dL Glucose 136 H (74-99) mg/dL POC Glucose (mg/dL) 121 H (75-99) mg/dL Lactate Dehydrogenase 1560 H (313-618) U/L C-Reactive Protein 2.0 H (<1.0) mg/dL Assessment and Plan Plan: Assessment: #1. Acute hypoxic respiratory failure secondary to COVID-19 pneumonia. Patient is status post 1 loading dose of Remdesivir 200 mg in the emergency department on 06/27/2021, and patient was started on Baricitinib for severe hypoxic respiratory failure on 06/27/2021. Clinically improving, and FiO2 is currently down to 45 L and FiO2 of 45% per Airvo device. Patient is a non-vaccinated individual #2. Elevated inflammatory markers related to the above, improving #3. Elevated d-dimer, V/Q scan showed very low probability of pulmonary emboli sm, lower extremity Dopplers were negative for DVT #4. Lifelong nonsmoker #5. Hyponatremia, suspect hypovolemic Plan: Continue current medical treatment Continue current Decadron and Baricitinib Continue Lovenox 40 mg once daily Continue weaning FiO2 to maintain O2 saturations at or above 90% Patient is currently on high flow nasal cannula at 10 L, Start 0.9 normal saline at a rate of 50 ML per hour0 Dietary consult for nutritional supplements Increase activity as tolerated We'll continue to closely monitor in the intensive care unit I performed a history & physical examination of the patient and discussed their management with my nurse practitioner, Margie Banerjee. I reviewed the nurse practitioner's note and agree with the documented findings and plan of care. Lung sounds are positive for bibasilar crackles hroughout the lung small. The findings and the impression was discussed with the patient. I attest to the documentation by the nurse practitioner. Time with Patient: Greater than 30
[2021-07-04 11:55] LABS: Glucose,Whole Blood 94 mg/dL (75-99)
--- NOTE | 2021-07-04 12:41 | P.PN ---
Subjective Progress Note Date: 07/04/21 This is a pleasant 65-year-old female with no significant past medical history, nonsmoker, and unvaccinated for COVID. Reports symptoms of fatigue and sore throat and fever, generalized joint pain started a week ago after traveling to [place], [place]. Upon returning home both she and her tested positive for COVID-19 on 06/21/21. Both presented to the ER with complaints of worsening hypoxia. Her received monoclonal antibodies and discharged home. On admission patient's O2 sat on room air 64%, temperature 101.4, respiratory rate 24, blood pressure/heart rate stable. Normal WBC, hemoglobin 12.6, platelets 274, d-dimer 1.35 now down to 0.99, ferritin 2575, LDH 2311, down to 2239 , CRP 34 -currently 31.9, coronavirus detected, sodium 135. Potassium 3.1, received supplementation currently up to 3.8, BUN 30, creatinine 1.43 currently 27, 0.87, blood sugars stable, T bili 0.9, AST 133, ALT 65, alk phos 461 Chest x-ray reported new bilateral extensive pneumonia. EKG is normal sinus rhythm. VQ scan reporting very low probability of PE. Received a dose of Remdesevir in the ER, now on Baricitinib. 06/28/2021 maintained on airvo 60 L flow/70% FiO2, maintaining O2 sats of 89- 93%. States she feels better. Chest x-ray with no significant change,reporting bilateral multifocal and confluent opacity consistent with COVID-19 redemonstrated. Continues on cold a cocktail including baricitinib. Afebrile, WBC 11.7. Preliminary blood cultures reporting no growth at 24 hours Hemoglobin 11.3, platelets 333. D-dimer 1.07, LDH improving, 2005, CRP down to 13.9. Sodium 133,Potassium 3.8, BUN 37, creatinine 0.66. Blood sugars controlled. 06/29/2021 continues on Covid cocktail including baricitinib. D-dimer up to 1.34, LDH and CRP improving.Remains on airvo 60L flow/ 60% FiO2, O2 sats 85%. Chest x-ray reporting continued diffuse bilateral Covid pneumonia with co nsolidation worsening on the left. Hemoglobin 9.3, platelets 391.T-max 99.2, WBC 13.8. Pulmonary blood cultures no growth at 48 hours. Renal function stable. Denies chest pressure, palpitations. Consuming 75%, blood sugars controlled. 07/02/2021 currently maintained on antiviral Airvo 50L, FiO2 55%, sitting up in chair, maintaining O2 sats of 94-97%.maintained on Colace cocktail including B aricitinib.diet intake improving. Denies nausea vomiting or diarrhea. Denies chest pain, palpitations.labs from 07/01 noted. 07/03/2021 continues on airvo with FiO2 decreased to 45%, maintaining O2 sats ranging 93-95%. Chest x-ray reporting persistent bilateral multifocal and confluent opacities, some improved aeration in the left lung base but more prominent findings in the right midlung periphery. Denies any chest pain, palpitations. Exertional shortness of breath. Nonproductive cough-occasional. Afebrile, WBC decreased to 14.2, hemoglobin 11.4, platelets 411. D-dimer 2.9, sodium 131. renal function stable. Blood sugars stable. LDH decreased to 1474, CRP remains at 3.4. Bilateral lower extremity Dopplers reported negative for DVT. 07/04/21 patient has been converted over to 10 L high flow nasal cannula, maintaining O2 sats in the high 80s to low 90s. Maintained on Covid cocktail,Baricitinib, Decadron, Lovenox and Vitamin supplements. Chest x-ray reporting worsening bilateral lung infiltrates. Diet intake improved. Afebrile, WBC decreased ,13.2, hemoglobin 9.6, platelets 489. She is referred 2.43, sodium 129, potassium 5, BUN 25, creatinine 0.57, LDH 1560, CRP 2. Objective - Vital Signs Vital signs: Vital Signs Temp 98.2 F 07/04/21 08:00 Pulse 59 L 07/04/21 11:00 Resp 16 07/04/21 11:00 BP 101/69 07/04/21 11:00 Pulse Ox 95 07/04/21 11:00 Intake & Output 07/03/21 07/04/21 07/04/21 18:59 06:59 18:59 Intake Total 550 600 550 Output Total 750 1400 950 Balance -200 -800 -400 Weight 74.616 kg Intake: IV 550 600 250 Sodium Chloride 0.9% 1, 550 600 250 000 ml @ 50 mls/hr IV . Q20H [facility] Rx#:[id number] Intake, IV Titration 50 Amount Sodium Chloride 0.9% 1, 50 000 ml @ 50 mls/hr IV . Q20H [facility] Rx#:[id number] Oral 250 Output: Urine 750 1400 950 Other: Voiding Method Bedside Commode Bedside Commode # Voids 1 1 1 - Exam PHYSICAL EXAM: VITAL SIGNS: [As above] GENERAL: Sitting up in chair, eating breakfast, on 10 L high flow nasal cannula maintaining O2 sat of 89-91% HEENT: Conjunctivae normal. eyes normal. Oral mucosa dry. NECK: Supple, No JVD. CARDIOVASCULAR: S1, S2 regular.No murmur RESPIRATION: Equal air entry with bilateral bases diminished.Bibasilar crackles. ABDOMEN: Soft, nontender . No guarding. no masses palpable. Positive bowel sounds. LEGS: No edema. no swelling. PSYCHIATRY: Alert and oriented X3, mood and affect normal. NERVOUS SYSTEM: Cranial N 2-12 grossly normal. Moves all 4 limbs. No focal deficits. Strength and sensation grossly intact. Skin: Warm and dry, no rash - Labs CBC & Chem 7: 07/04/21 04:48 07/04/21 04:48 Labs: Abnormal Lab Results - Last 24 Hours (Table) 07/03/21 07/03/21 07/04/21 Range/Units 17:04 20:37 04:48 WBC 13.2 H (3.8-10.6) k/uL Plt Count 489 H (150-450) k/uL Neutrophils # 11.8 H (1.3-7.7) k/uL Lymphocytes # 0.9 L (1.0-4.8) k/uL D-Dimer (<0.60) mg/L FEU Sodium (137-145) mmol/L BUN (7-17) mg/dL Glucose (74-99) mg/dL POC Glucose (mg/dL) 170 H 131 H (75-99) mg/dL Lactate Dehydrogenase (313-618) U/L C-Reactive Protein (<1.0) mg/dL 07/04/21 07/04/21 07/04/21 Range/Units 04:48 04:48 06:05 WBC (3.8-10.6) k/uL Plt Count (150-450) k/uL Neutrophils # (1.3-7.7) k/uL Lymphocytes # (1.0-4.8) k/uL D-Dimer 2.43 H (<0.60) mg/L FEU Sodium 129 L (137-145) mmol/L BUN 25 H (7-17) mg/dL Glucose 136 H (74-99) mg/dL POC Glucose (mg/dL) 121 H (75-99) mg/dL Lactate Dehydrogenase 1560 H (313-618) U/L C-Reactive Protein 2.0 H (<1.0) mg/dL Assessment and Plan Assessment: Acute COVID-19 pneumonia, bilateral, symptoms 1 week,improving Severe sepsis with organ dysfunction secondary to the above Acute hypoxic respiratory failure secondary to all the above Acute renal failure, resolved with IV fluid hydration Elevated LFTs Elevated inflammatory markers secondary to covid Mild hyponatremia, resolved Plan: Continue on current medication regime ,monitoring and symptomatic treatment. Maintain Covid cocktail,Baricitinib. Continue weaning of FiO2. Increase Activity As Tolerated. The impression and plan of care has been dictated as directed. : I performed a history and examination of this patient, discussed the same with the dictator. I agree with the dictator's note ,documented as a scribe. Any additional findings or plans will be noted.
--- NOTE | 2021-07-04 17:04 | PN ---
PROGRESS NOTE DATE OF SERVICE: 07/04/2021 REASON FOR FOLLOWUP: COVID-19 pneumonia. INTERVAL HISTORY: The patient is afebrile. The patient is breathing comfortably. She is down to 12 L nasal cannula. The patient denies having any chest pain. No worsening cough. No vomiting. No abdominal pain or diarrhea. PHYSICAL EXAMINATION: Blood pressure is 129/72, pulse of 63, temperature 97.8. General description is a middle-aged female up in the chair in no distress. RESPIRATORY SYSTEM: Unlabored breathing. Decreased intensity of breath sounds. No wheeze. HEART: S1, S2. Regular rate and rhythm. ABDOMEN: Soft. No tenderness. LABS: Hemoglobin 11.6, white count 13.2. D-dimer is 2.43. Creatinine 0.57. DIAGNOSTIC IMPRESSION AND PLAN: Patient with acute COVID-19 pneumonia in this patient who did have some clinical improvement. Patient's chest x-ray shows some worsening infiltrate, though. Patient at this time is covered with baricitinib, dexamethasone, Lovenox, zinc and ascorbic acid along with respiratory support. Monitor clinical course closely. MMODL / IJN: [id number] /
[2021-07-04 17:14] LABS: Glucose,Whole Blood 219 mg/dL (75-99)
[2021-07-04 17:52] LABS: Glucose,Whole Blood 169 mg/dL (75-99)
[2021-07-04 21:01] LABS: Glucose,Whole Blood 145 mg/dL (75-99)
[2021-07-05 05:03] LABS: Basophils % (A) 0 %; Eosinophils % (A) 0 %; HCT 32.3 % (34.0-46.0); HGB 10.6 gm/dL (11.4-16.0); Lymphocytes # (A) 0.8 k/uL (1.0-4.8); Lymphocytes % (A) 8 %; MCH 29.9 pg (25.0-35.0); MCHC 32.9 g/dL (31.0-37.0); MCV 90.9 fL (80.0-100.0); Mean Platelet Volume 9.5; Monocytes # (A) 0.3 k/uL (0-1.0); Monocytes % (A) 3 %; Neutrophils # (A) 8.7 k/uL (1.3-7.7); Neutrophils % (A) 87 %; Platelet Count 415 k/uL (150-450); RBC 3.55 m/uL (3.80-5.40)
[2021-07-05 05:17] LABS: African American GFR (CKD) >90 (>60 ml/min/1.73 sqM); Anion Gap 3 mmol/L; Blood Urea Nitrogen 23 mg/dL (7-17); C Reactive Protein 1.4 mg/dL (<1.0); Calcium 8.3 mg/dL (8.4-10.2); Carbon Dioxide 26 mmol/L (22-30); Chloride 100 mmol/L (98-107); Glucose 130 mg/dL (74-99); LDH 1029 U/L (313-618); Non-African American GFR(CKD) >90 (>60 ml/min/1.73 sqM); Potassium 4.9 mmol/L (3.5-5.1); Sodium 129 mmol/L (137-145)
[2021-07-05 06:01] LABS: Glucose,Whole Blood 119 mg/dL (75-99)
[2021-07-05] MEDS: INSULIN ASPART (NovoLOG) 100 UNIT/ML VIAL SQ SCH ×4 (06:04→21:51)
[2021-07-05] MEDS: ALBUTEROL HFA INHALER INHALATION SCH ×4 (09:08→20:25)
[2021-07-05] MEDS ORDERED: dexAMETHasone 2 MG TAB PO SCH (09:54)
[2021-07-05] MEDS: ENOXAPARIN 40 MG/0.4 ML SYRINGE SQ SCH (09:55)
[2021-07-05] MEDS: ZINC SULFATE 220 MG CAP PO SCH (09:55)
[2021-07-05] MEDS: ASCORBIC ACID 500 MG TAB PO SCH (09:55)
[2021-07-05] MEDS: BARICITINIB 2 MG TABLET PO SCH (09:55)
[2021-07-05] MEDS: CHOLECALCIFEROL 25 MCG (1000 IU) TABLET PO SCH (09:55)
--- NOTE | 2021-07-05 11:43 | P.PN ---
Subjective Progress Note Date: 07/05/21 Principal diagnosis: Acute hypoxic respiratory failure 6 noted to COVID-19 pneumonia On 07/02/2021 patient seen in follow-up in intensive care unit. Patient is awake and alert, in no acute distress, she sits up in the recliner, current Airvo settings are 50 L/m, and FiO2 of 55%, and her pulse ox is 94-97%, she is breathing comfortably, vital signs are stable, she's been afebrile, is receiving 0.9 normal saline at a rate of 50 ML per hour, she has had no acute events overnight. Her last chest x-ray was on 06/30/2021 showing bilateral airspace disease. Last set of labs from yesterday showed white blood cell count of 16.4, hemoglobin of 11.4, d-dimer is 5.54, sodium was 132, serum electrolytes were within normal limits, BUN was 19 creatinine was 0.60, LDH was 1769, improved since admission, CRP was 3.4, also improved since admission. Patient continues on a combination of Decadron 6 mg twice daily, she is on Lovenox 40 mg twice daily, she remains on Baricitinib, and multivitamins. On today's evaluation 07/03/2021 patient seen in follow-up in the intensive care unit, she is on Airvo with 45 L/m and FiO2 of 45%, and her pulse ox is 95%, hemodynamically she is stable, she is in sinus mechanism, she is afebrile. Today's chest x-ray showing persistent bilateral multifocal and confluent opacities consistent with COVID-19 infection, areas of improvement and worsening noted for most recent chest x-ray. Today's labs have been reviewed, blood cell count is improving and is down to 14.2, hemoglobin is 11.4, d-dimer is trending down and is down to 2.9, sodium is 131, the rest of the electrolytes are within normal limits, BUN is 26, creatinine 0.54. LDH is improving and is down to 1474, and CRP is 3.4. Patient is tolerating oral diet, she has been get not to the commode, tolerating activity fairly well although she does get dyspneic with exertion. On today's evaluation on 07/04/2021 patient seen in follow-up in the intensive care unit, she has been switched over to a regular high flow nasal cannula, she is currently on 10 L, her pulse ox is 89-92%, she is breathing comfortably at rest, does get exertional dyspnea, but no acute distress. No fever or chills, hemodynamically stable, no acute events overnight, overall she is improving. She is sitting up in the chair, ambulating to the bathroom, tolerated activity fairly well. Today's chest x-ray was felt to be worsening with bilateral lung infiltrates. Clinically patient has remained stable. She remains on Baricitinib, Decadron 6 mg twice daily, Lovenox 40 mg once daily. VQ scan was low probability of pulmonary embolism, and lower extremity Dopplers were negative for DVT. Today's labs have been reviewed, white blood cell count is 13.2, hemoglobin is 11.6, today's d-dimer is 2.43, serum sodium is low at 129, 5.0, chloride is 101, CO2 is 22, BUN is 25, creatinine 0.57. LDH is 1560, relatively stable in last couple of days, and CRP is improving and is down to 2.0. Appetite has been marginal. Patient is not on any maintenance IV fluids. On 07/05/2021 patient seen in follow-up in the intensive care unit, she is awake and alert, in no acute distress, she is currently down to 8 L per high flow nasal cannula, and her pulse ox is 93-96%, breathing comfortably, 0.9 normal saline 50 ML per hour, overall she has had no acute events overnight, she is improving, no chest discomfort, no worsening dyspnea, vital signs have been stable, she is tolerating oral intake, no nausea vomiting or diarrhea. Patient remains on a combination of Decadron, prophylactic Lovenox, and Baricitinib. No new chest x-ray today, today's labs have been reviewed. White blood cell count is 10, hemoglobin is 10.6, d-dimer is improving and is down to 2.12, sodium is stable at 129, breast reduction lites are within normal limits, BUN is 23 creatinine 0.60. Inflammatory markers continue to improve, LDH is down to 1029, and CRP is 1.4. Objective - Vital Signs Vital signs: Vital Signs Temp 97.8 F 07/05/21 08:00 Pulse 71 07/05/21 10:00 Resp 13 07/05/21 10:00 BP 104/71 07/05/21 10:00 Pulse Ox 97 07/05/21 10:00 Intake & Output 07/04/21 07/05/21 07/05/21 18:59 06:59 18:59 Intake Total 1600 550 400 Output Total 1250 1300 400 Balance 350 -750 0 Weight 74.7 kg Intake: IV 600 550 200 Sodium Chloride 0.9% 1, 600 550 200 000 ml @ 50 mls/hr IV . Q20H [facility] Rx#:[id number] Intake, IV Titration 50 Amount Sodium Chloride 0.9% 1, 50 000 ml @ 50 mls/hr IV . Q20H [facility] Rx#:[id number] Oral 950 200 Output: Urine 1250 1300 400 Other: Voiding Method Bedside Commode Bedside Commode Bedside Commode # Voids 1 - Exam GENERAL EXAM: Alert, very pleasant, 65-year-old white female, on 8 l/min high flow with a pulse ox of 97%, comfortable in no apparent distress. HEAD: Normocephalic/atraumatic. EYES: Normal reaction of pupils, equal size. Conjunctiva pink, sclera white. NOSE: Clear with pink turbinates. THROAT: No erythema or exudates. NECK: No masses, no JVD, no thyroid enlargement, no adenopathy. CHEST: No chest wall deformity. Symmetrical expansion. LUNGS: Equal air entry with bilateral crackles CVS: Regular rate and rhythm, normal S1 and S2, no gallops, no murmurs, no rubs ABDOMEN: Soft, nontender. No hepatosplenomegaly, normal bowel sounds, no guarding or rigidity. EXTREMITIES: No clubbing, no edema, no cyanosis, 2+ pulses and upper and lower extremities. MUSCULOSKELETAL: Muscle strength and tone normal. SPINE: No scoliosis or deformity SKIN: No rashes CENTRAL NERVOUS SYSTEM: Alert and oriented -3. No focal deficits, tone is normal in all 4 extremities. PSYCHIATRIC: Alert and oriented -3. Appropriate affect. Intact judgment and insight. - Labs CBC & Chem 7: 07/05/21 04:39 07/05/21 04:39 Labs: Abnormal Lab Results - Last 24 Hours (Table) 07/04/21 07/04/21 07/04/21 Range/Units 16:55 17:50 20:59 RBC (3.80-5.40) m/uL Hgb (11.4-16.0) gm/dL Hct (34.0-46.0) % Neutrophils # (1.3-7.7) k/uL Lymphocytes # (1.0-4.8) k/uL D-Dimer (<0.60) mg/L FEU Sodium (137-145) mmol/L BUN (7-17) mg/dL Glucose (74-99) mg/dL POC Glucose (mg/dL) 219 H 169 H 145 H (75-99) mg/dL Calcium (8.4-10.2) mg/dL Lactate Dehydrogenase (313-618) U/L C-Reactive Protein (<1.0) mg/dL 07/05/21 07/05/21 07/05/21 Range/Units 04:39 04:39 04:39 RBC 3.55 L (3.80-5.40) m/uL Hgb 10.6 L (11.4-16.0) gm/dL Hct 32.3 L (34.0-46.0) % Neutrophils # 8.7 H (1.3-7.7) k/uL Lymphocytes # 0.8 L (1.0-4.8) k/uL D-Dimer 2.12 H (<0.60) mg/L FEU Sodium 129 L (137-145) mmol/L BUN 23 H (7-17) mg/dL Glucose 130 H (74-99) mg/dL POC Glucose (mg/dL) (75-99) mg/dL Calcium 8.3 L (8.4-10.2) mg/dL Lactate Dehydrogenase 1029 H (313-618) U/L C-Reactive Protein 1.4 H (<1.0) mg/dL 07/05/21 Range/Units 05:58 RBC (3.80-5.40) m/uL Hgb (11.4-16.0) gm/dL Hct (34.0-46.0) % Neutrophils # (1.3-7.7) k/uL Lymphocytes # (1.0-4.8) k/uL D-Dimer (<0.60) mg/L FEU Sodium (137-145) mmol/L BUN (7-17) mg/dL Glucose (74-99) mg/dL POC Glucose (mg/dL) 119 H (75-99) mg/dL Calcium (8.4-10.2) mg/dL Lactate Dehydrogenase (313-618) U/L C-Reactive Protein (<1.0) mg/dL Assessment and Plan Plan: Assessment: #1. Acute hypoxic respiratory failure secondary to COVID-19 pneumonia. Patient is status post 1 loading dose of Remdesivir 200 mg in the emergency department on 06/27/2021, and patient was started on Baricitinib for severe hypoxic r espiratory failure on 06/27/2021. Patient is a non-vaccinated individual. patient is currently off Airvo and down to 8 l/min per high flow nasal cannula #2. Elevated inflammatory markers related to the above, improving #3. Elevated d-dimer, V/Q scan showed very low probability of pulmonary embo lism, lower extremity Dopplers were negative for DVT #4. Lifelong nonsmoker #5. Hyponatremia, suspect hypovolemic Plan: Continue current medical treatment Continue current Decadron and Baricitinib Continue Lovenox 40 mg once daily Continue weaning FiO2 to maintain O2 saturations at or above 90% Patient is currently on high flow nasal cannula at 8 L, clinically she continues to improve, Increase activity as tolerated, encourage incentive spirometry use, Inflammatory markers are improving, CXR findings show overall improved bilat airspace disease since admission Discontinue IV fluid Encourage oral intake STable to transfer out of ICU to medical surgical floor without tele I performed a history & physical examination of the patient and discussed their management with my nurse practitioner, Margie Banerjee. I reviewed the nurse practitioner's note and agree with the documented findings and plan of care. Lung sounds are positive for bibasilar crackles hroughout the lung small. The findings and the impression was discussed with the patient. I attest to the documentation by the nurse practitioner. Time with Patient: Less than 30
[2021-07-05 12:16] LABS: Glucose,Whole Blood 91 mg/dL (75-99)
--- NOTE | 2021-07-05 14:09 | P.PN ---
Subjective Progress Note Date: 07/05/21 This is a pleasant 65-year-old female with no significant past medical history, nonsmoker, and unvaccinated for COVID. Reports symptoms of fatigue and sore throat and fever, generalized joint pain started a week ago after traveling to [place], [place]. Upon returning home both she and her tested positive for COVID-19 on 06/21/21. Both presented to the ER with complaints of worsening hypoxia. Her received monoclonal antibodies and discharged home. On admission patient's O2 sat on room air 64%, temperature 101.4, respiratory rate 24, blood pressure/heart rate stable. Normal WBC, hemoglobin 12.6, platelets 274, d-dimer 1.35 now down to 0.99, ferritin 2575, LDH 2311, down to 2239 , CRP 34 -currently 31.9, coronavirus detected, sodium 135. Potassium 3.1, received supplementation currently up to 3.8, BUN 30, creatinine 1.43 currently 27, 0.87, blood sugars stable, T bili 0.9, AST 133, ALT 65, alk phos 461 Chest x-ray reported new bilateral extensive pneumonia. EKG is normal sinus rhythm. VQ scan reporting very low probability of PE. Received a dose of Remdesevir in the ER, now on Baricitinib. 06/28/2021 maintained on airvo 60 L flow/70% FiO2, maintaining O2 sats of 89- 93%. States she feels better. Chest x-ray with no significant change,reporting bilateral multifocal and confluent opacity consistent with COVID-19 redemonstrated. Continues on cold a cocktail including baricitinib. Afebrile, WBC 11.7. Preliminary blood cultures reporting no growth at 24 hours Hemoglobin 11.3, platelets 333. D-dimer 1.07, LDH improving, 2005, CRP down to 13.9. Sodium 133,Potassium 3.8, BUN 37, creatinine 0.66. Blood sugars controlled. 06/29/2021 continues on Covid cocktail including baricitinib. D-dimer up to 1.34, LDH and CRP improving.Remains on airvo 60L flow/ 60% FiO2, O2 sats 85%. Chest x-ray reporting continued diffuse bilateral Covid pneumonia with co nsolidation worsening on the left. Hemoglobin 9.3, platelets 391.T-max 99.2, WBC 13.8. Pulmonary blood cultures no growth at 48 hours. Renal function stable. Denies chest pressure, palpitations. Consuming 75%, blood sugars controlled. 07/02/2021 currently maintained on antiviral Airvo 50L, FiO2 55%, sitting up in chair, maintaining O2 sats of 94-97%.maintained on Colace cocktail including B aricitinib.diet intake improving. Denies nausea vomiting or diarrhea. Denies chest pain, palpitations.labs from 07/01 noted. 07/03/2021 continues on airvo with FiO2 decreased to 45%, maintaining O2 sats ranging 93-95%. Chest x-ray reporting persistent bilateral multifocal and confluent opacities, some improved aeration in the left lung base but more prominent findings in the right midlung periphery. Denies any chest pain, palpitations. Exertional shortness of breath. Nonproductive cough-occasional. Afebrile, WBC decreased to 14.2, hemoglobin 11.4, platelets 411. D-dimer 2.9, sodium 131. renal function stable. Blood sugars stable. LDH decreased to 1474, CRP remains at 3.4. Bilateral lower extremity Dopplers reported negative for DVT. 07/04/21 patient has been converted over to 10 L high flow nasal cannula, maintaining O2 sats in the high 80s to low 90s. Maintained on Covid cocktail,Baricitinib, Decadron, Lovenox and Vitamin supplements. Chest x-ray reporting worsening bilateral lung infiltrates. Diet intake improved. Afebrile, WBC decreased ,13.2, hemoglobin 9.6, platelets 489. She is referred 2.43, sodium 129, potassium 5, BUN 25, creatinine 0.57, LDH 1560, CRP 2. 07/05/21 Maintained on Baricitinib, Decadron, Lovenox and Vitamin supplements. Oxygen titrated further down to 8 L high flow nasal cannula, maintaining O2 sat of 90-97%. Inflammatory markers trending down. Afebrile, normal WBC. Hemoglobin 10.6, platelets 4:15. Renal function stable Objective - Vital Signs Vital signs: Vital Signs Temp 97.7 F 07/05/21 04:00 Pulse 56 L 07/05/21 07:00 Resp 17 07/05/21 07:00 BP 117/56 07/05/21 07:00 Pulse Ox 96 07/05/21 07:00 Intake & Output 07/04/21 07/05/21 07/05/21 18:59 06:59 18:59 Intake Total 1600 550 50 Output Total 1250 1300 Balance 350 -750 50 Weight 74.7 kg Intake: IV 600 550 50 Sodium Chloride 0.9% 1, 600 550 50 000 ml @ 50 mls/hr IV . Q20H [facility] Rx#:[id number] Intake, IV Titration 50 Amount Sodium Chloride 0.9% 1, 50 000 ml @ 50 mls/hr IV . Q20H [facility] Rx#:[id number] Oral 950 Output: Urine 1250 1300 Other: Voiding Method Bedside Commode Bedside Commode # Voids 1 - Exam PHYSICAL EXAM: VITAL SIGNS: [As above] GENERAL: Pleasant, sitting up in chair,NAD HEENT: Conjunctivae normal. eyes normal. Oral mucosa moist. NECK: Supple, No JVD. CARDIOVASCULAR: S1, S2 regular.No murmur RESPIRATION: Equal air entry with bilateral bases diminished.Bibasilar crackles. ABDOMEN: Soft, nontender . No guarding. no masses palpable. Positive bowel sounds. LEGS: No edema. no swelling. No cyanosis, no clubbing PSYCHIATRY: Alert and oriented X3, mood and affect normal. NERVOUS SYSTEM: Cranial N 2-12 grossly normal. Moves all 4 limbs. No focal deficits. Strength and sensation grossly intact. Skin: Warm and dry, no rash - Labs CBC & Chem 7: 07/05/21 04:39 07/05/21 04:39 Labs: Abnormal Lab Results - Last 24 Hours (Table) 07/04/21 07/04/21 07/04/21 Range/Units 16:55 17:50 20:59 RBC (3.80-5.40) m/uL Hgb (11.4-16.0) gm/dL Hct (34.0-46.0) % Neutrophils # (1.3-7.7) k/uL Lymphocytes # (1.0-4.8) k/uL D-Dimer (<0.60) mg/L FEU Sodium (137-145) mmol/L BUN (7-17) mg/dL Glucose (74-99) mg/dL POC Glucose (mg/dL) 219 H 169 H 145 H (75-99) mg/dL Calcium (8.4-10.2) mg/dL Lactate Dehydrogenase (313-618) U/L C-Reactive Protein (<1.0) mg/dL 07/05/21 07/05/21 07/05/21 Range/Units 04:39 04:39 04:39 RBC 3.55 L (3.80-5.40) m/uL Hgb 10.6 L (11.4-16.0) gm/dL Hct 32.3 L (34.0-46.0) % Neutrophils # 8.7 H (1.3-7.7) k/uL Lymphocytes # 0.8 L (1.0-4.8) k/uL D-Dimer 2.12 H (<0.60) mg/L FEU Sodium 129 L (137-145) mmol/L BUN 23 H (7-17) mg/dL Glucose 130 H (74-99) mg/dL POC Glucose (mg/dL) (75-99) mg/dL Calcium 8.3 L (8.4-10.2) mg/dL Lactate Dehydrogenase 1029 H (313-618) U/L C-Reactive Protein 1.4 H (<1.0) mg/dL 07/05/21 Range/Units 05:58 RBC (3.80-5.40) m/uL Hgb (11.4-16.0) gm/dL Hct (34.0-46.0) % Neutrophils # (1.3-7.7) k/uL Lymphocytes # (1.0-4.8) k/uL D-Dimer (<0.60) mg/L FEU Sodium (137-145) mmol/L BUN (7-17) mg/dL Glucose (74-99) mg/dL POC Glucose (mg/dL) 119 H (75-99) mg/dL Calcium (8.4-10.2) mg/dL Lactate Dehydrogenase (313-618) U/L C-Reactive Protein (<1.0) mg/dL Assessment and Plan Assessment: Acute COVID-19 pneumonia, bilateral, symptoms 1 week,improving Severe sepsis with organ dysfunction secondary to the above Acute hypoxic respiratory failure secondary to all the above, status post airvo, currently on highflow. Acute renal failure, resolved with IV fluid hydration Elevated LFTs Elevated inflammatory markers secondary to covid Mild hyponatremia Plan: Continue on current medication regime ,monitoring and symptomatic treatment. Maintain Covid cocktail,Baricitinib. Continue weaning of FiO2. Increase Activity As Tolerated. Cleared for transfer out of ICU as per business coordinator. The impression and plan of care has been dictated as directed. : I performed a history and examination of this patient, discussed the same with the dictator. I agree with the dictator's note ,documented as a scribe. Any additional findings or plans will be noted.
[2021-07-05 17:03] LABS: Glucose,Whole Blood 136 mg/dL (75-99)
[2021-07-05 20:43] LABS: Glucose,Whole Blood 119 mg/dL (75-99)
--- NOTE | 2021-07-05 23:19 | PN ---
PROGRESS NOTE DATE OF SERVICE: 07/05/2021 REASON FOR FOLLOWUP: COVID-19 pneumonia. INTERVAL HISTORY: The patient is afebrile. The patient is breathing more comfortably, down to the nasal cannula oxygen. Denies any chest pain. Cough has decreased in intensity. No nausea, no vomiting. No abdominal pain or diarrhea. PHYSICAL EXAMINATION: Blood pressure 103/58 with a pulse of 65, temperature 98.4. She is 98% on 5 L nasal cannula. General description is a middle-aged female up in the bed in no distress. RESPIRATORY SYSTEM: Unlabored breathing. Decreased intensity of breath sounds. No wheeze. HEART: S1, S2. Regular rate and rhythm. ABDOMEN: Soft. No tenderness. LABS: Hemoglobin is 10.7, white count of 10. D-dimer is 2.12, creatinine 0.60. DIAGNOSTIC IMPRESSION AND PLAN: Patient with acute COVID-19 pneumonia in this patient who seems to be showing overall clinical improvement. Patient is currently on baricitinib, dexamethasone, Lovenox, zinc and ascorbic acid; to continue along with respiratory support and monitor clinical course closely. MMODL / IJN: [id number] /
[2021-07-06 06:13] LABS: Basophils % (A) 0 %; Eosinophils # (A) 0.1 k/uL (0-0.7); Eosinophils % (A) 1 %; HCT 32.8 % (34.0-46.0); HGB 10.7 gm/dL (11.4-16.0); Lymphocytes # (A) 1.5 k/uL (1.0-4.8); Lymphocytes % (A) 17 %; MCHC 32.7 g/dL (31.0-37.0); MCV 91.7 fL (80.0-100.0); Mean Platelet Volume 9.5; Monocytes # (A) 0.5 k/uL (0-1.0); Monocytes % (A) 6 %; Neutrophils # (A) 6.7 k/uL (1.3-7.7); Neutrophils % (A) 74 %; Platelet Count 419 k/uL (150-450); RBC 3.58 m/uL (3.80-5.40); RDW 12.9 % (11.5-15.5)
[2021-07-06 06:32] LABS: ALT 80 U/L (4-34); AST 46 U/L (14-36); African American GFR (CKD) >90 (>60 ml/min/1.73 sqM); Albumin 2.7 g/dL (3.5-5.0); Alkaline Phosphatase 125 U/L (38-126); Anion Gap 4 mmol/L; Blood Urea Nitrogen 27 mg/dL (7-17); Calcium 8.6 mg/dL (8.4-10.2); Carbon Dioxide 27 mmol/L (22-30); Chloride 99 mmol/L (98-107); Glucose 94 mg/dL (74-99); Non-African American GFR(CKD) >90 (>60 ml/min/1.73 sqM); Potassium 4.5 mmol/L (3.5-5.1); Sodium 130 mmol/L (137-145); Total Bilirubin 0.5 mg/dL (0.2-1.3); Total Protein 5.4 g/dL (6.3-8.2)
[2021-07-06] MEDS: INSULIN ASPART (NovoLOG) 100 UNIT/ML VIAL SQ SCH ×4 (06:33→21:28)
[2021-07-06] MEDS: PANTOPRAZOLE 40 MG TABLET PO SCH (06:34)
[2021-07-06 08:00] LABS: Glucose,Whole Blood 86 mg/dL (75-99)
--- NOTE | 2021-07-06 08:14 | XR ---
EXAMINATION TYPE: XR chest 1V portable DATE OF EXAM: 07/06/2021 COMPARISON: 07/04/2021 HISTORY: Cough TECHNIQUE: Single frontal view of the chest is obtained. FINDINGS: Bilateral diffuse infiltrates most marked in the upper lobes. Heart size normal. Limited inspiration. No pneumothorax or pleural effusion. Osseous structures intac t. IMPRESSION: Stable bilateral diffuse infiltrates
[2021-07-06] MEDS: ALBUTEROL HFA INHALER INHALATION SCH ×4 (08:42→20:53)
[2021-07-06] MEDS ORDERED: dexAMETHasone 2 MG TAB PO SCH (09:00)
[2021-07-06] MEDS: ZINC SULFATE 220 MG CAP PO SCH (09:16)
[2021-07-06] MEDS: CHOLECALCIFEROL 25 MCG (1000 IU) TABLET PO SCH (09:16)
[2021-07-06] MEDS: ASCORBIC ACID 500 MG TAB PO SCH (09:16)
[2021-07-06] MEDS: ENOXAPARIN 40 MG/0.4 ML SYRINGE SQ SCH (09:16)
[2021-07-06] MEDS: BARICITINIB 2 MG TABLET PO SCH (09:16)
--- NOTE | 2021-07-06 11:29 | P.PN ---
Subjective Progress Note Date: 07/06/21 This is a pleasant 65-year-old female with no significant past medical history, nonsmoker, and unvaccinated for COVID. Reports symptoms of fatigue and sore throat and fever, generalized joint pain started a week ago after traveling to [place], [place]. Upon returning home both she and her tested positive for COVID-19 on 06/21/21. Both presented to the ER with complaints of worsening hypoxia. Her received monoclonal antibodies and discharged home. On admission patient's O2 sat on room air 64%, temperature 101.4, respiratory rate 24, blood pressure/heart rate stable. Normal WBC, hemoglobin 12.6, platelets 274, d-dimer 1.35 now down to 0.99, ferritin 2575, LDH 2311, down to 2239 , CRP 34 -currently 31.9, coronavirus detected, sodium 135. Potassium 3.1, received supplementation currently up to 3.8, BUN 30, creatinine 1.43 currently 27, 0.87, blood sugars stable, T bili 0.9, AST 133, ALT 65, alk phos 461 Chest x-ray reported new bilateral extensive pneumonia. EKG is normal sinus rhythm. VQ scan reporting very low probability of PE. Received a dose of Remdesevir in the ER, now on Baricitinib. 06/28/2021 maintained on airvo 60 L flow/70% FiO2, maintaining O2 sats of 89- 93%. States she feels better. Chest x-ray with no significant change,reporting bilateral multifocal and confluent opacity consistent with COVID-19 redemonstrated. Continues on cold a cocktail including baricitinib. Afebrile, WBC 11.7. Preliminary blood cultures reporting no growth at 24 hours Hemoglobin 11.3, platelets 333. D-dimer 1.07, LDH improving, 2005, CRP down to 13.9. Sodium 133,Potassium 3.8, BUN 37, creatinine 0.66. Blood sugars controlled. 06/29/2021 continues on Covid cocktail including baricitinib. D-dimer up to 1.34, LDH and CRP improving.Remains on airvo 60L flow/ 60% FiO2, O2 sats 85%. Chest x-ray reporting continued diffuse bilateral Covid pneumonia with co nsolidation worsening on the left. Hemoglobin 9.3, platelets 391.T-max 99.2, WBC 13.8. Pulmonary blood cultures no growth at 48 hours. Renal function stable. Denies chest pressure, palpitations. Consuming 75%, blood sugars controlled. 07/02/2021 currently maintained on antiviral Airvo 50L, FiO2 55%, sitting up in chair, maintaining O2 sats of 94-97%.maintained on Colace cocktail including B aricitinib.diet intake improving. Denies nausea vomiting or diarrhea. Denies chest pain, palpitations.labs from 07/01 noted. 07/03/2021 continues on airvo with FiO2 decreased to 45%, maintaining O2 sats ranging 93-95%. Chest x-ray reporting persistent bilateral multifocal and confluent opacities, some improved aeration in the left lung base but more prominent findings in the right midlung periphery. Denies any chest pain, palpitations. Exertional shortness of breath. Nonproductive cough-occasional. Afebrile, WBC decreased to 14.2, hemoglobin 11.4, platelets 411. D-dimer 2.9, sodium 131. renal function stable. Blood sugars stable. LDH decreased to 1474, CRP remains at 3.4. Bilateral lower extremity Dopplers reported negative for DVT. 07/04/21 patient has been converted over to 10 L high flow nasal cannula, maintaining O2 sats in the high 80s to low 90s. Maintained on Covid cocktail,Baricitinib, Decadron, Lovenox and Vitamin supplements. Chest x-ray reporting worsening bilateral lung infiltrates. Diet intake improved. Afebrile, WBC decreased ,13.2, hemoglobin 9.6, platelets 489. She is referred 2.43, sodium 129, potassium 5, BUN 25, creatinine 0.57, LDH 1560, CRP 2. 07/05/21 Maintained on Baricitinib, Decadron, Lovenox and Vitamin supplements. Oxygen titrated further down to 8 L high flow nasal cannula, maintaining O2 sat of 90-97%. Inflammatory markers trending down. Afebrile, normal WBC. Hemoglobin 10.6, platelets 4:15. Renal function stable. 07/06/2021 significant clinical improvement, oxygen titrated down to 3 L nasal cannula, maintaining O2 sats in the mid to high 90s. Chest x-ray reporting stable bilateral diffuse infiltrates. Decreased cough. Afebrile, normal WBC. Hemoglobin 10.7, platelets 419. Sodium 1:30, BUN 27, creatinine 0.63, minimally elevated AST, ALT.Diet intake 50-100%, tolerating well, denies nausea vomiting or diarrhea. Blood sugars controlled. Objective - Vital Signs Vital signs: Vital Signs Temp 97.7 F 07/06/21 02:00 Pulse 52 L 07/06/21 02:00 Resp 15 07/06/21 08:00 BP 93/54 07/06/21 08:00 Pulse Ox 95 07/06/21 08:00 Intake & Output 07/05/21 07/06/21 07/06/21 18:59 06:59 18:59 Intake Total 960 150 Output Total 1150 800 Balance -190 -650 Intake: IV 200 Sodium Chloride 0.9% 1, 200 000 ml @ 50 mls/hr IV . Q20H [facility] Rx#:[id number] Oral 760 150 Output: Urine 1150 800 Other: Voiding Method Bedside Commode Bedside Commode Bedside Commode - Exam PHYSICAL EXAM: VITAL SIGNS: [As above] GENERAL: Pleasant, sitting up in chair,NAD HEENT: Conjunctivae normal. eyes normal. Oral mucosa moist. NECK: Supple, No JVD. CARDIOVASCULAR: S1, S2 regular.No murmur RESPIRATION: Equal air entry with bilateral bases diminished.fine Bibasilar crackles. ABDOMEN: Soft, nontender . No guarding. no masses palpable. Positive bowel sounds. LEGS: No edema. no swelling. No cyanosis, no clubbing PSYCHIATRY: Alert and oriented X3, mood and affect normal. NERVOUS SYSTEM: Cranial N 2-12 grossly normal.No focal deficits. Strength and sensation grossly intact. Skin: Warm and dry, no rash - Labs CBC & Chem 7: 07/06/21 05:26 07/06/21 05:26 Labs: Abnormal Lab Results - Last 24 Hours (Table) 07/05/21 07/05/21 07/06/21 Range/Units 17:01 20:42 05:26 RBC 3.58 L (3.80-5.40) m/uL Hgb 10.7 L (11.4-16.0) gm/dL Hct 32.8 L (34.0-46.0) % Sodium (137-145) mmol/L BUN (7-17) mg/dL POC Glucose (mg/dL) 136 H 119 H (75-99) mg/dL AST (14-36) U/L ALT (4-34) U/L Total Protein (6.3-8.2) g/dL Albumin (3.5-5.0) g/dL 07/06/21 Range/Units 05:26 RBC (3.80-5.40) m/uL Hgb (11.4-16.0) gm/dL Hct (34.0-46.0) % Sodium 130 L (137-145) mmol/L BUN 27 H (7-17) mg/dL POC Glucose (mg/dL) (75-99) mg/dL AST 46 H (14-36) U/L ALT 80 H (4-34) U/L Total Protein 5.4 L (6.3-8.2) g/dL Albumin 2.7 L (3.5-5.0) g/dL Assessment and Plan Assessment: Acute COVID-19 pneumonia, bilateral, symptoms 1 week,improving Severe sepsis with organ dysfunction secondary to the above Acute hypoxic respiratory failure secondary to all the above, status post airvo, currently on highflow. Acute renal failure, resolved with IV fluid hydration Elevated LFTs Elevated inflammatory markers secondary to covid Mild hyponatremia Plan: Continue on current medication regime ,monitoring and symptomatic treatment. Covid cocktail,Baricitinib. Continue with weaning off FiO2. Increase Activity As Tolerated. Cleared for transfer out of ICU as per kitchen hand. The impression and plan of care has been dictated as directed. : I performed a history and examination of this patient, discussed the same with the dictator. I agree with the dictator's note ,documented as a scribe. Any additional findings or plans will be noted.
--- NOTE | 2021-07-06 11:36 | P.PN ---
Subjective Progress Note Date: 07/06/21 Principal diagnosis: Acute hypoxic respiratory failure 6 noted to COVID-19 pneumonia On 07/02/2021 patient seen in follow-up in intensive care unit. Patient is awake and alert, in no acute distress, she sits up in the recliner, current Airvo settings are 50 L/m, and FiO2 of 55%, and her pulse ox is 94-97%, she is breathing comfortably, vital signs are stable, she's been afebrile, is receiving 0.9 normal saline at a rate of 50 ML per hour, she has had no acute events overnight. Her last chest x-ray was on 06/30/2021 showing bilateral airspace disease. Last set of labs from yesterday showed white blood cell count of 16.4, hemoglobin of 11.4, d-dimer is 5.54, sodium was 132, serum electrolytes were within normal limits, BUN was 19 creatinine was 0.60, LDH was 1769, improved since admission, CRP was 3.4, also improved since admission. Patient continues on a combination of Decadron 6 mg twice daily, she is on Lovenox 40 mg twice daily, she remains on Baricitinib, and multivitamins. On today's evaluation 07/03/2021 patient seen in follow-up in the intensive care unit, she is on Airvo with 45 L/m and FiO2 of 45%, and her pulse ox is 95%, hemodynamically she is stable, she is in sinus mechanism, she is afebrile. Today's chest x-ray showing persistent bilateral multifocal and confluent opacities consistent with COVID-19 infection, areas of improvement and worsening noted for most recent chest x-ray. Today's labs have been reviewed, blood cell count is improving and is down to 14.2, hemoglobin is 11.4, d-dimer is trending down and is down to 2.9, sodium is 131, the rest of the electrolytes are within normal limits, BUN is 26, creatinine 0.54. LDH is improving and is down to 1474, and CRP is 3.4. Patient is tolerating oral diet, she has been get not to the commode, tolerating activity fairly well although she does get dyspneic with exertion. On today's evaluation on 07/04/2021 patient seen in follow-up in the intensive care unit, she has been switched over to a regular high flow nasal cannula, she is currently on 10 L, her pulse ox is 89-92%, she is breathing comfortably at rest, does get exertional dyspnea, but no acute distress. No fever or chills, hemodynamically stable, no acute events overnight, overall she is improving. She is sitting up in the chair, ambulating to the bathroom, tolerated activity fairly well. Today's chest x-ray was felt to be worsening with bilateral lung infiltrates. Clinically patient has remained stable. She remains on Baricitinib, Decadron 6 mg twice daily, Lovenox 40 mg once daily. VQ scan was low probability of pulmonary embolism, and lower extremity Dopplers were negative for DVT. Today's labs have been reviewed, white blood cell count is 13.2, hemoglobin is 11.6, today's d-dimer is 2.43, serum sodium is low at 129, 5.0, chloride is 101, CO2 is 22, BUN is 25, creatinine 0.57. LDH is 1560, relatively stable in last couple of days, and CRP is improving and is down to 2.0. Appetite has been marginal. Patient is not on any maintenance IV fluids. On 07/05/2021 patient seen in follow-up in the intensive care unit, she is awake and alert, in no acute distress, she is currently down to 8 L per high flow nasal cannula, and her pulse ox is 93-96%, breathing comfortably, 0.9 normal saline 50 ML per hour, overall she has had no acute events overnight, she is improving, no chest discomfort, no worsening dyspnea, vital signs have been stable, she is tolerating oral intake, no nausea vomiting or diarrhea. Patient remains on a combination of Decadron, prophylactic Lovenox, and Baricitinib. No new chest x-ray today, today's labs have been reviewed. White blood cell count is 10, hemoglobin is 10.6, d-dimer is improving and is down to 2.12, sodium is stable at 129, breast reduction lites are within normal limits, BUN is 23 creatinine 0.60. Inflammatory markers continue to improve, LDH is down to 1029, and CRP is 1.4. On 07/06/2021 patient seen in follow-up in the intensive care unit, she has been waiting for bed on medical surgical floor. His been stable, currently FiO2 is d own to 3 L, she is breathing much more comfortably, pulse ox is 95-96%, and this can probably be weaned further down. No fever or chills, vital signs have been stable. She is not on any IV fluids, she is tolerating oral intake, no nausea vomiting or diarrhea, she's been ambulating to the bathroom, tolerating activity well. Today's chest x-ray shows stable bilateral diffuse infiltrates. Today's labs have been reviewed, hemoglobin is 10.7, white blood cell count is 9, sodium is improving and is up to 1:30, the rest of electrolytes and renal profile were unremarkable. Objective - Vital Signs Vital signs: Vital Signs Temp 97.7 F 07/06/21 02:00 Pulse 52 L 07/06/21 02:00 Resp 15 07/06/21 08:00 BP 93/54 07/06/21 08:00 Pulse Ox 95 07/06/21 08:00 Intake & Output 07/05/21 07/06/21 07/06/21 18:59 06:59 18:59 Intake Total 960 150 Output Total 1150 800 Balance -190 -650 Intake: IV 200 Sodium Chloride 0.9% 1, 200 000 ml @ 50 mls/hr IV . Q20H [facility] Rx#:[id number] Oral 760 150 Output: Urine 1150 800 Other: Voiding Method Bedside Commode Bedside Commode Bedside Commode - Exam GENERAL EXAM: Alert, very pleasant, 65-year-old white female, on 3 l/min high flow with a pulse ox of 95%, comfortable in no apparent distress. HEAD: Normocephalic/atraumatic. EYES: Normal reaction of pupils, equal size. Conjunctiva pink, sclera white. NOSE: Clear with pink turbinates. THROAT: No erythema or exudates. NECK: No masses, no JVD, no thyroid enlargement, no adenopathy. CHEST: No chest wall deformity. Symmetrical expansion. LUNGS: Equal air entry with bilateral crackles CVS: Regular rate and rhythm, normal S1 and S2, no gallops, no murmurs, no rubs ABDOMEN: Soft, nontender. No hepatosplenomegaly, normal bowel sounds, no guarding or rigidity. EXTREMITIES: No clubbing, no edema, no cyanosis, 2+ pulses and upper and lower extremities. MUSCULOSKELETAL: Muscle strength and tone normal. SPINE: No scoliosis or deformity SKIN: No rashes CENTRAL NERVOUS SYSTEM: Alert and oriented -3. No focal deficits, tone is normal in all 4 extremities. PSYCHIATRIC: Alert and oriented -3. Appropriate affect. Intact judgment and insight. - Labs CBC & Chem 7: 07/06/21 05:26 07/06/21 05:26 Labs: Abnormal Lab Results - Last 24 Hours (Table) 07/05/21 07/05/21 07/06/21 Range/Units 17:01 20:42 05:26 RBC 3.58 L (3.80-5.40) m/uL Hgb 10.7 L (11.4-16.0) gm/dL Hct 32.8 L (34.0-46.0) % Sodium (137-145) mmol/L BUN (7-17) mg/dL POC Glucose (mg/dL) 136 H 119 H (75-99) mg/dL AST (14-36) U/L ALT (4-34) U/L Total Protein (6.3-8.2) g/dL Albumin (3.5-5.0) g/dL 07/06/21 Range/Units 05:26 RBC (3.80-5.40) m/uL Hgb (11.4-16.0) gm/dL Hct (34.0-46.0) % Sodium 130 L (137-145) mmol/L BUN 27 H (7-17) mg/dL POC Glucose (mg/dL) (75-99) mg/dL AST 46 H (14-36) U/L ALT 80 H (4-34) U/L Total Protein 5.4 L (6.3-8.2) g/dL Albumin 2.7 L (3.5-5.0) g/dL Assessment and Plan Plan: Assessment: #1. Acute hypoxic respiratory failure secondary to COVID-19 pneumonia. Patient is status post 1 loading dose of Remdesivir 200 mg in the emergency department on 06/27/2021, and patient was started on Baricitinib for severe hypoxic respiratory failure on 06/27/2021. Patient is a non-vaccinated individual. patient is currently off Airvo and down to 3 l/min per high flow nasal cannula #2. Elevated inflammatory markers related to the above, improving #3. Elevated d-dimer, V/Q scan showed very low probability of pulmonary embolism, lower extremity Dopplers were negative for DVT #4. Lifelong nonsmoker #5. Hyponatremia, suspect hypovolemic Plan: Patient is doing well Currently down to 3 L per nasal cannula Obtain home oxygen assessment Patient will likely go home on home oxygen at 2-3 L She stable for discharge home from pulmonary perspective She has completed 10 days of Decadron, which can stop today Discontinue Baricitinib Outpatient follow-up with Dr. Guevara in the office in 2 weeks I performed a history & physical examination of the patient and discussed their management with my nurse practitioner, Margie Banerjee. I reviewed the nurse practitioner's note and agree with the documented findings and plan of care. Lung sounds are positive for bibasilar crackles hroughout the lung small. The findings and the impression was discussed with the patient. I attest to the documentation by the nurse practitioner. Time with Patient: Less than 30
[2021-07-06 12:41] LABS: Glucose,Whole Blood 87 mg/dL (75-99)
[2021-07-06 16:54] LABS: Glucose,Whole Blood 95 mg/dL (75-99)
--- NOTE | 2021-07-06 18:08 | PN ---
PROGRESS NOTE DATE OF SERVICE: 07/06/2021 REASON FOR FOLLOW UP: COVID-19 pneumonia. INTERVAL HISTORY: The patient is afebrile. The patient is feeling better, breathing comfortably. She is currently on 2 L nasal cannula. The patient denies having any chest pain. She did have a cough, not bringing up any sputum. No nausea, no vomiting. No abdominal pain or diarrhea. PHYSICAL EXAMINATION: Blood pressure 99/59 with a pulse of 58, temperature is 97.6. She is 96% on 2 L nasal cannula. General description is a middle-aged female up in the chair in no distress. Respiratory system: Unlabored breathing, decreased intensity of breath sounds. No wheeze. Heart S1, S2. Regular rate and rhythm. Abdomen soft, no tenderness. LABS: Hemoglobin is 10.1, white count 9.0 creatinine 0.63. IMPRESSION/PLAN: Patient with acute COVID-19 pneumonia in this patient seems to have shown overall clinical improvement. Chest x-ray with diffuse infiltrate which is stable. The patient is currently on baricitinib, Lovenox, dexamethasone, zinc and ascorbic acid to continue along with respiratory support and monitor clinical course closely. Continue supportive care. MMODL / IJN: [id number] /
[2021-07-06] MEDS: PANTOPRAZOLE 40 MG/10 ML VIAL IVP SCH (19:17)
[2021-07-06] MEDS: DEXAMETHASONE SOD PHOSPHATE 10 MG/ML 1 ML VIAL IVP SCH (19:17)
[2021-07-06 20:43] LABS: Glucose,Whole Blood 98 mg/dL (75-99)
[2021-07-07 07:23] LABS: Glucose,Whole Blood 90 mg/dL (75-99)
[2021-07-07] MEDS: ASCORBIC ACID 500 MG TAB PO SCH (07:36)
[2021-07-07] MEDS: ZINC SULFATE 220 MG CAP PO SCH (07:36)
[2021-07-07] MEDS: CHOLECALCIFEROL 25 MCG (1000 IU) TABLET PO SCH (07:36)
[2021-07-07] MEDS: PANTOPRAZOLE 40 MG TABLET PO SCH (07:36)
[2021-07-07] MEDS: BARICITINIB 2 MG TABLET PO SCH (07:37)
[2021-07-07] MEDS: INSULIN ASPART (NovoLOG) 100 UNIT/ML VIAL SQ SCH ×2 (07:38→11:55)
[2021-07-07] MEDS: ENOXAPARIN 40 MG/0.4 ML SYRINGE SQ SCH (07:38)
[2021-07-07] MEDS: ALBUTEROL HFA INHALER INHALATION SCH ×2 (08:32→11:42)
[2021-07-07 10:32] VITALS: PULSE 78; RESP 18; TEMP 97.8
[2021-07-07 11:54] LABS: Glucose,Whole Blood 86 mg/dL (75-99)
--- NOTE | 2021-07-07 14:21 | P.PN ---
Subjective Progress Note Date: 07/07/21 Principal diagnosis: Acute hypoxemic respiratory failure secondary to COVID-19 pneumonia On 07/02/2021 patient seen in follow-up in intensive care unit. Patient is awake and alert, in no acute distress, she sits up in the recliner, current Airvo settings are 50 L/m, and FiO2 of 55%, and her pulse ox is 94-97%, she is breathing comfortably, vital signs are stable, she's been afebrile, is receiving 0.9 normal saline at a rate of 50 ML per hour, she has had no acute events ov ernight. Her last chest x-ray was on 06/30/2021 showing bilateral airspace disease. Last set of labs from yesterday showed white blood cell count of 16.4, hemoglobin of 11.4, d-dimer is 5.54, sodium was 132, serum electrolytes were within normal limits, BUN was 19 creatinine was 0.60, LDH was 1769, improved since admission, CRP was 3.4, also improved since admission. Patient continues on a combination of Decadron 6 mg twice daily, she is on Lovenox 40 mg twice daily, she remains on Baricitinib, and multivitamins. On today's evaluation 07/03/2021 patient seen in follow-up in the intensive care unit, she is on Airvo with 45 L/m and FiO2 of 45%, and her pulse ox is 95%, hemodynamically she is stable, she is in sinus mechanism, she is afebrile. Today's chest x-ray showing persistent bilateral multifocal and confluent opacities consistent with COVID-19 infection, areas of improvement and worsening noted for most recent chest x-ray. Today's labs have been reviewed, blood cell count is improving and is down to 14.2, hemoglobin is 11.4, d-dimer is trending down and is down to 2.9, sodium is 131, the rest of the electrolytes are within normal limits, BUN is 26, creatinine 0.54. LDH is improving and is down to 1474, and CRP is 3.4. Patient is tolerating oral diet, she has been get not to the commode, tolerating activity fairly well although she does get dyspneic with exertion. On today's evaluation on 07/04/2021 patient seen in follow-up in the intensive care unit, she has been switched over to a regular high flow nasal cannula, she is currently on 10 L, her pulse ox is 89-92%, she is breathing comfortably at rest, does get exertional dyspnea, but no acute distress. No fever or chills, hemodynamically stable, no acute events overnight, overall she is improving. She is sitting up in the chair, ambulating to the bathroom, tolerated activity fairly well. Today's chest x-ray was felt to be worsening with bilateral lung infiltrates. Clinically patient has remained stable. She remains on Baricitinib, Decadron 6 mg twice daily, Lovenox 40 mg once daily. VQ scan was low probability of pulmonary embolism, and lower extremity Dopplers were negative for DVT. Today's labs have been reviewed, white blood cell count is 13.2, hemoglobin is 11.6, today's d-dimer is 2.43, serum sodium is low at 129, 5.0, chloride is 101, CO2 is 22, BUN is 25, creatinine 0.57. LDH is 1560, relatively stable in last couple of days, and CRP is improving and is down to 2.0. Appetite has been marginal. Patient is not on any maintenance IV fluids. On 07/05/2021 patient seen in follow-up in the intensive care unit, she is awake and alert, in no acute distress, she is currently down to 8 L per high flow nasal cannula, and her pulse ox is 93-96%, breathing comfortably, 0.9 normal sa line 50 ML per hour, overall she has had no acute events overnight, she is improving, no chest discomfort, no worsening dyspnea, vital signs have been stable, she is tolerating oral intake, no nausea vomiting or diarrhea. Patient remains on a combination of Decadron, prophylactic Lovenox, and Baricitinib. No new chest x-ray today, today's labs have been reviewed. White blood cell count is 10, hemoglobin is 10.6, d-dimer is improving and is down to 2.12, sodium is stable at 129, breast reduction lites are within normal limits, BUN is 23 creatinine 0.60. Inflammatory markers continue to improve, LDH is down to 1029, and CRP is 1.4. On 07/06/2021 patient seen in follow-up in the intensive care unit, she has been waiting for bed on medical surgical floor. His been stable, currently FiO2 is down to 3 L, she is breathing much more comfortably, pulse ox is 95-96%, and this can probably be weaned further down. No fever or chills, vital signs have been stable. She is not on any IV fluids, she is tolerating oral intake, no nausea vomiting or diarrhea, she's been ambulating to the bathroom, tolerating activity well. Today's chest x-ray shows stable bilateral diffuse infiltrates. Today's labs have been reviewed, hemoglobin is 10.7, white blood cell count is 9, sodium is improving and is up to 1:30, the rest of electrolytes and renal profile were unremarkable. The patient is seen today 07/07/2021 in follow-up on the regular medical floor. She is currently sitting up in a chair at the bedside. Awake and alert in no acute distress. She is now maintaining good O2 saturations in the low 90s on room air. She's been afebrile. Glucose 86. No other labs today. She is continued on Baricitinib, Lovenox, vitamin supplements. Appetite is good. No IV fluids. She is anxious to go home. Objective - Vital Signs Vital signs: Vital Signs Temp 97.8 F 07/07/21 10:31 Pulse 78 07/07/21 10:31 Resp 18 07/07/21 10:31 BP 80/48 07/07/21 10:31 Pulse Ox 93 L 07/07/21 11:45 Intake & Output 07/06/21 07/07/21 07/07/21 18:59 06:59 18:59 Weight 74.7 kg Other: Voiding Method Bedside Commode Bedside Commode Bedside Commode # Voids 2 3 - Exam GENERAL EXAM: Alert, active, very pleasant 65-year-old female patient, on room air, comfortable in no apparent distress. HEAD: Normocephalic. EYES: Normal reaction of pupils, equal size. NOSE: Clear with pink turbinates. THROAT: No erythema or exudates. NECK: No masses, no JVD. CHEST: No chest wall deformity. LUNGS: Equal air entry with crackles in the posterior bases. CVS: S1 and S2 normal with no audible murmur, regular rhythm. ABDOMEN: No hepatosplenomegaly, normal bowel sounds, no guarding or rigidity. SPINE: No scoliosis or deformity SKIN: No rashes CENTRAL NERVOUS SYSTEM: No focal deficits, tone is normal in all 4 extremities. EXTREMITIES: There is no peripheral edema. No clubbing, no cyanosis. Peripheral pulses are intact. - Labs CBC & Chem 7: 07/06/21 05:26 07/06/21 05:26 Assessment and Plan Assessment: 1 Acute hypoxemic respiratory failure secondary to acute COVID-19 pneumonia. Unvaccinated. Symptoms started 1 week prior to admission. Received 1 dose of Remdesivir 06/26/2021 then qualified for Baricitinib. 2 Elevated inflammatory markers secondary to above Plan: The patient was seen and evaluated by Dr. Barney Cleared for discharge from the pulmonary standpoint Recovered and on room air Completed 10 days of Decadron Not to be on home Baricitinib Follow up in our office in 3-4 weeks We will repeat a chest x-ray then I, the cosigning physician, performed a history & physical examination of the patient. Lungs sounds scattered rhonchi, crackles in the posterior bases. Maintaining O2 saturations in the 90s on room air. I discussed the assessment and plan of care with my nurse practitioner, Shirley Stauffer. I attest to the above note as dictated by her.
[2021-07-07 14:47] VITALS: BP 100/67
--- NOTE | 2021-07-07 22:27 | P.DS ---
Providers Date of admission: 06/26/21 21:20 Attending physician: Orlando Miller Consults: 06/26/21 18:55 Consult Physician Stat Consulting Provider: Yokasta Maldonado Consult Reason/Comments: covid 19 pneumonia Do you want consulting provider notified?: Yes, Notify in am 06/26/21 18:57 Consult Physician Stat Consulting Provider: Lyn Monroy Consult Reason/Comments: covid 19 pneumonia Do you want consulting provider notified?: Yes, Notify in am Primary care physician: Orlando Miller Hospital Course: Diagnoses: Acute COVID-19 pneumonia, bilateral, improved Acute hypoxic respiratory failure, resolved and patient does not need oxygen upon discharge Decreased inflammatory markers Acute renal failure, resolved with IV fluid hydration Elevated LFTs, stable and mild. Follow-up as an outpatient Hospital course: This is a pleasant 65 years old female with no significant past medical history, she has previous history of hysterectomy. Presents to the hospital with respiratory symptoms found to have acute hypoxic respiratory failure secondary to bilateral, with pneumonia. Patient was treated with multiple vitamins including vitamin C, vitamin D and zinc, dexamethasone, Lovenox.and Baricitinib Patient showed interval improvement and on the day of discharge patient denies any other symptoms. No chest pain or dyspnea. No change in urine or bowel habits. No fever. No abdominal pain. Tolerates diet well. No headache, dizziness or weakness. Patient has been evaluated for home oxygen and she does not home oxygen she is saturating 91-93% with exertion, it was actually checked twice a day and that was negative test. Patient was cleared for discharge by the pulmonary service Problems and management plan were discussed with the patient and he verbalized understanding and acceptance Patient was found stable and can be discharged home however he needs follow-up as an outpatient. Patient was instructed to follow up with PCP Dr. Miller within one week and patient agrees Patient was instructed to follow up with production illustrator Dr. Barney in 2-3 weeks and patient agrees to call and make her appointment as today is weakened. Physical exam Gen: patient is a AAOx3, no distress CVS: S1-S2, RRR, no murmur Lungs: B/L CTA, no wheezing Abdomen: soft, no distention, no tenderness, positive bowel sounds Extremity: no leg edema or induration Time spent more than 35 minutes Patient Condition at Discharge: Serious Plan - Discharge Summary New Discharge Prescriptions: New Albuterol Inhaler [Ventolin Hfa Inhaler] 2 puff INHALATION RT-QID #1 inh Ascorbic Acid [Vitamin C] 1,000 mg PO DAILY #60 tab Cholecalciferol [Vitamin D3 (25 Mcg = 1000 Iu)] 100 mcg PO DAILY #30 tablet Zinc Sulfate [Orazinc] 220 mg PO DAILY #30 cap Discharge Medication List Albuterol Inhaler [Ventolin Hfa Inhaler] 2 puff INHALATION RT-QID #1 inh 07/07/21 [Rx] Ascorbic Acid [Vitamin C] 1,000 mg PO DAILY #60 tab 07/07/21 [Rx] Cholecalciferol [Vitamin D3 (25 Mcg = 1000 Iu)] 100 mcg PO DAILY #30 tablet 07/07/21 [Rx] Zinc Sulfate [Orazinc] 220 mg PO DAILY #30 cap 07/07/21 [Rx] Follow up Appointment(s)/Referral(s): Orlando Miller DO [Primary Care Provider] - 1 Week (office closed at discharge Please call Friday to schedule appointment) Luis Barney DO [Doctor of Osteopathic Medicine] - 3 Weeks (office closed at time of discharge. Please call Friday to schedule appointment ) Patient Instructions/Handouts: Coronavirus Disease 2019 (COVID-19) Activity/Diet/Wound Care/Special Instructions: heart healthy diet activity is restricted till you see your doctor Discharge Disposition: HOME SELF-CARE
--- NOTE | 2021-07-08 09:54 | P.PN ---
Progress Note - Text Progress Note Date: 07/07/21 REASON FOR FOLLOW UP: COVID-19 pneumonia. INTERVAL HISTORY: The patient remains to be afebrile. The patient is feeling better, breathing comfortably. She is currently on room air The patient denies having any chest pain. She did have a cough, not bringing up any sputum. No nausea, no vomiting. No abdominal pain or diarrhea. PHYSICAL EXAMINATION: Blood pressure 100/59 with a pulse of 60, temperature is 97.6. She is 94% on RA General description is a middle-aged female up in the room in no distress. Respiratory system: Unlabored breathing, decreased intensity of breath sounds. No wheeze. Heart S1, S2. Regular rate and rhythm. Abdomen soft, no tenderness. LABS: reviewed IMPRESSION/PLAN: Patient with acute COVID-19 pneumonia in this patient seems to have shown overall clinical improvement. Chest x-ray with diffuse infiltrate which is stable. The patient will be discharged home on zinc and ascorbic acid and close out patient follow up
== END 2021-07-07 15:08 | disposition home or self-care (01) | DRG 177 ==
LOC: EC 18:14 → 4SSUR 21:20 → 2SICU 06-27 08:49 → 4SSUR 07-06 12:23
PROVIDERS: ADMIT Family Medicine; ATTEND Family Medicine
PROC: XW033E5 Introduction of Remdesivir Anti-infective into Peripheral Vein, Percutaneous Approach, New Technology Group 5 (ICD-10-PCS; 2021-06-26)
PROC: XW0DXM6 Introduction of Baricitinib into Mouth and Pharynx, External Approach, New Technology Group 6 (ICD-10-PCS; principal; 2021-06-27)
DX: U07.1 COVID-19 (principal); J96.01 Acute respiratory failure with hypoxia; J12.82 Pneumonia due to coronavirus disease 2019; E87.1 Hypo-osmolality and hyponatremia; E87.2 Acidosis; N17.9 Acute kidney failure, unspecified; E83.51 Hypocalcemia; E86.0 Dehydration; E87.6 Hypokalemia; Z79.01 Long term (current) use of anticoagulants; Z90.710 Acquired absence of both cervix and uterus; R79.89 Other specified abnormal findings of blood chemistry; R74.01 Elevation of levels of liver transaminase levels
CPT/HCPCS: 36415; 71045; 78580; 80048; 80053; 82728; 83605; 83615; 83735; 84145; 84484; 85025; 85379; 85384; 85610; 85730; 86140; 87040; 87635; 93005; 93970; 94640; 96360; 96361; 99291

== ENCOUNTER → 2021-08-20 | Outpatient (CLI) | payer MEDICAID ==
--- NOTE | 2021-08-20 14:48 | XR ---
EXAMINATION TYPE: XR ankle complete LT DATE OF EXAM: 08/20/2021 Comparison: None Clinical History: 65-year-old female with pain after Left Ankle Sprain Findings: There is generalized soft tissue swelling at the ankle. Tiny 2 mm ossific density anterior aspect of the tibiotalar joint on the lateral view. Subtle millimeter ossific density interposed in the inferio r medial clear space on the AP view. Talar dome appears intact. Ankle mortise appears congruent. Othe rwise, no acute fracture, subluxation, dislocation. Pronounced soft tissue swelling extends to the do rsal hindfoot. Impression: Pronounced circumferential soft tissue swelling extending to the dorsal hindfoot. Consider underlying ligamentous injuries, possible age indeterminate tiny avulsion fractures given 2 to 3 mm bone densit y adjacent to the medial malleolus and anterior tibiotalar joint. CT may be helpful in determining if these represent acute fractures.
== END | disposition home or self-care (01) ==
LOC: RADXRMAIN 12:08
PROVIDERS: ATTEND Family Medicine
DX: S93.402A Sprain of unspecified ligament of left ankle, initial encounter (principal)

== ENCOUNTER → 2024-09-16 | Outpatient (CLI) | payer MEDICARE ==
--- NOTE | 2024-09-16 11:38 | MM ---
Reason for Exam: Screening (asymptomatic). Last mammogram was performed 4 year(s) and 10 month(s) ago. Patient History: Menarche at age 15. First Full-Term at age 25. Hysterectomy at age 49. Postmenopausal. Other cancer. Hormonal Contraceptives for 4 years from age 22 until age 26. Risk Values: Suzy 5 year model risk: 1.5%. NCI Lifetime model risk: 5.4%. Prior Study Comparison: 12/18/2016 Bilateral Screening Mammogram, [facility]. 01/27/2018 Bilateral Screening Mammogram, [facility]. 11/03/2019 Bilateral Screening Mammogram, [facility]. Tissue Density: There are scattered areas of fibroglandular density. Findings: Analyzed By CAD. Stable small oval circumscribed mass in the right breast now having focal dystrophic calcifications probable fibroadenoma. There is no suspicious new group of microcalcifications or new suspicious mass in either breast. Overall Assessment: Benign, BI-RAD 2 Management: Screening Mammogram of both breasts in 1 year. . Patient should continue monthly self-breast exams. A clinical breast exam by your physician is recommended on an annual basis. This exam should not preclude additional follow-up of suspicious palpable abnormalities. Note on Suzy scores and lifetime risk: 1. A Suzy score greater than 3% is considered moderate risk. If this is the case, consider specialist referral to assess eligibility for a risk reducing agent. 2. If overall lifetime risk for the development of breast cancer is 20% or higher, the patient may qualify for future screening with alternating mammogram and breast MRI. [facility], , 09/16/2024 11:35 AM. Electronically signed and approved by: Malcolm Bal M.D.
== END | disposition home or self-care (01) ==
LOC: RADMAMWWP 08:38
PROVIDERS: ATTEND Family Medicine
DX: Z12.31 Encounter for screening mammogram for malignant neoplasm of breast (principal); R92.323 Mammographic fibroglandular density, bilateral breasts; Z78.0 Asymptomatic menopausal state
CPT/HCPCS: 77063; 77067